=== PATIENT | male | born 1940 | race Caucasian/White ===

== ENCOUNTER 2024-03-21 18:26 | Emergency (ER) | payer OTHER, SELFPAY ==
[2024-03-21 18:28] VITALS: BP 169/80
--- NOTE | 2024-03-21 18:51 | ED.MUSCINJ ---
HPI-Injury
General
Chief Complaint: Fall
Source: patient
Exam Limitations: none
Time Seen by Provider: 03/21/24 18:33
History of Present Illness-Injury
Is this injury a work related problem?: No
Is pt an associate of [facility]/[place]?: No
Initial Injury comments:
This is a 83 year old male that comes in with c/o fall. States that he has problems with balance and he is not to walk in the grass. states that he walked in the grass and lost his balance and fell right on the right knee. States that he has had
pain in that knee before this. Denies hitting his head or any LOC. Denies any fever, chills, chest pain, SOB, abd pain, nausea, vomiting, diarrhea, headache, dizziness, urinary burning.
Past History
Past History
ED Past Medical History: CAD, Cancer (Prostate CA), HTN, Hypercholesterolemia, IDDM and Other (Back pain)
ED Past Surgical History: Appendectomy, Cardiac (Stents X 2), Orthopedic (Laminectomy, Right Menisectomy, Spinal fusion, revision or spinal incision X 2) and Urological (TURP)
Social History
Tobacco: Non-smoker
Alcohol: Occasional
Drug: None
Personal:
Living: with family
Employment: Retired
Family History
Family History: Other (Noncontributory)
Review of Systems
Review of Systems
All Other Systems: ROS reviewed and negative except as documented in HPI and ROS
Constitutional: Reports no symptoms; Denies fever or chills
EENT: Reports no symptoms
Respiratory: Reports no symptoms; Denies cough or trouble breathing
Cardiac: Reports no symptoms; Denies chest pain
ABD/GI: Reports no symptoms; Denies abdominal pain, nausea, vomiting or diarrhea
: Reports no symptoms; Denies dysuria, frequency or urgency
Musculoskeletal: Reports joint pain (Right knee pain)
Skin: Reports no symptoms
Neurological: Reports no symptoms; Denies dizzy or headache
Psychiatric: Reports no symptoms
Musculoskeletal Injury Exam
Musculoskeletal Injury Exam
Right Medial:
Pain with Movement?: Mild
Tender to palpation?: None
Soft tissue swelling?: None
External deformity and angulation?: None
Joint effusion?: None
Contusion?: None
Hematoma-local bleeding into tissue?: None
Strain- Sprain- Tear (Connective tissue injury)?: None
Crepitus with movement?: No
Joint instability?: No
Malalignment/deformity?: No
Range of motion: Full
Distal skin color and temperature: normal-warm & good color
Capillary Refill: normal
Normal distal neurovascular exam?: Yes
Phy Exam
General Physical Exam
General Presentation: well appearing and no apparent distress
General age: appears stated age
General Skin: warm and dry
General Habitus: elderly
General Mental: alert
General Hydration: appears well hydrated
ENT Exam
ENT Exam: TM's normal, pharynx normal and neck supple
Eye Exam
Eye Exam: EOMI
Musculoskeletal Exam
Musculoskeletal Exam: other (negative for any cervical neck tenderness or shoulder tenderness. Patient can cross over, abduct, flex elbows move wrist and fingers without discomfort right knee tenderness with flexion and extension)
Skin Exam
Skin Exam: normal color, warm/dry, no rash, no petechia and other (Small abrasion to the left knee)
Psychiatric Exam
Psychiatric Exam: normal mood/affect
Injury Course
Orders/Labs/Results
Orders:
Orders
03/21/24 18:30
Knee, Right 4 or More Views [CR Knee- Right 4 Or More View*] Urgent
Comment:
Reason For Exam: fell on on right knee today
03/21/24 19:03
Hector Wrap Right-Treatment ONCE
MDM/Problems Addressed
Differential Diagnosis Includes:
Chronic knee pain, contusion.
MDM/Problems Addressed:
This is a 83 year old male that comes in with c/o right knee pain after falling in the grass
will gt X-ray.
Chronic conditions affecting care:
Chronic knee pain
Acute Exacerbation and/or Progression of Chronic Illness:
NA
*Radiology
Radiology exam reviewed: radiology read reviewed (right knee-degenerative changes. No findings to suggest recent cortical fracture. )
*Pulse Oximetry
Patient hypoxic: no
*EKG
Interpreted by ED Provider?: NA
Rate: EKG- N/A
*[employer] Inspector Interpretation
Rate: [employer] Inspector- N/A
*Critical Care Note
Total Time (30-74mins, 75-104mins- exclusive of procedures): Not Applicable
ED Attending Note
-
Portions of this chart may have been created with voice recognition software.� Occasional wrong word or��sound alike� substitutions may have occurred due to the inherent limitations of voice recognition software.
Discharge Plan
Departure
Patient Disposition: Home (Routine Discharge)
Date of Disposition: 03/21/24
Time of Disposition: 19:13
Patient with high blood pressure during this ER visit?: Yes
Condition: Good
Covid-19: Not Applicable
Discharge Problem:
Knee pain, right
Instructions: Preventing falls in adults, Knee Pain ED, BLOOD PRESSURE
Prescriptions:
No Action
metformin 500 MG tablet
500 mg PO TID
allopurinol 100 MG tablet
100 mg PO MOWEFR
glimepiride 2 MG tablet
2 mg PO DAILY
rosuvastatin 10 MG tablet
10 mg PO QPM
metoprolol tartrate 25 MG tablet
25 mg PO DAILY
vitamin B complex-folic acid [Super B Maxi Complex] 0.4 MG tablet
0.4 mg PO DAILY
fish oil-dha-epa 1 EACH capsule
2 tab PO BID
cholecalciferol (vitamin D3) 1,000 UNITS tablet
1,000 units PO DAILY
insulin glargine [Lantus Solostar U-100 Insulin] 300 UNITS/3 ML insulin pen
15 units SC HS
sennosides [senna] 1 TABLET tablet
2 tab PO BID 0RF
acetaminophen [Tylenol Extra Strength] 500 MG tablet
1,000 mg PO Q6H 0RF
Rx Instructions:
Do not exceed >4000 mg daily.
docusate sodium 100 MG capsule
100 mg PO BID 0RF
tramadol 50 MG tablet
50 mg PO Q6HPRN PRN (Reason: moderate-severe pain) Qty: 30 0RF
Rx Instructions:
1 tab for moderate-severe pain
dx lami
ongoing therapy
gabapentin 100 MG capsule
200 mg PO TID Qty: 30 0RF
cephalexin 500 MG capsule
500 mg PO TID 5 Days Qty: 15 0RF
losartan 50 MG tablet
50 mg PO DAILY Qty: 0 0RF
Rx Instructions:
Hold if systolic blood pressure <130 while on Tramadol
clopidogrel 75 MG tablet
75 mg PO DAILY Qty: 0 0RF
Rx Instructions:
Resume 09/09/20, per surgeon
aspirin 81 MG tablet,delayed release (DR/EC)
81 mg PO DAILY Qty: 0 0RF
Rx Instructions:
Resume 09/09/20, per surgeon
nifedipine 60 MG tablet extended release 24hr
60 mg PO DAILY Qty: 0 0RF
Rx Instructions:
Hold if systolic blood pressure <130 while on Tramadol
tamsulosin 0.4 MG capsule
0.4 mg PO DAILY Qty: 10 0RF
hydrocodone-acetaminophen 1 TABLET tablet
1 tab PO Q4HPRN PRN (Reason: pain) Qty: 10 0RF
loperamide [Imodium A-D] 2 MG capsule
2 mg PO TID PRN (Reason: loose stools) Qty: 14 0RF
triamcinolone acetonide 1 APPLIC ointment
1 applic topical TID Qty: 1 0RF
tamsulosin 0.4 MG capsule
0.4 mg PO DAILY Qty: 14 0RF
oxycodone 5 MG tablet
5 mg PO Q8HPRN PRN (Reason: pain) Qty: 10 0RF
cephalexin 250 mg capsule
250 mg PO BID Qty: 13 0RF
Activity Restrictions/Additional Instructions:
As discussed, our X-ray is negative for any fractures or dislocation. There is degenerative changes in the right knee. Please use your Tylenol 1000mg every 6 hours as needed for pain. Ice for the next 24 hours on for 20 min at a time. Follow up with
the family doctor as needed. You may use the hector to help give your knee some support. IF YOU HAVE ANY OTHER CONCERNS PLEASE RETURN TO THE EMERGENCY ROOM
Interventions
Interventions:
*ED COVID-19 Vaccine History Last Done: 03/21/24 18:28
Discharge Date and Time
Print Language: TUVALUAN
== END 2024-03-21 19:30 | disposition home or self-care (01) ==
LOC: EMR 18:26
PROVIDERS: EMERGENCY PHYSICIAN Emergency Medicine; FAMILY PHYSICIAN Internal Medicine
DX: M25.561 Pain in right knee (principal); W18.30XA Fall on same level, unspecified, initial encounter; E11.9 Type 2 diabetes mellitus without complications; I25.10 Atherosclerotic heart disease of native coronary artery without angina pectoris; I10 Essential (primary) hypertension; E78.00 Pure hypercholesterolemia, unspecified; G89.29 Other chronic pain; Z85.46 Personal history of malignant neoplasm of prostate; Z95.5 Presence of coronary angioplasty implant and graft; Z98.1 Arthrodesis status; Z79.4 Long term (current) use of insulin; Z79.82 Long term (current) use of aspirin
CPT/HCPCS: 99283; 73564

== ENCOUNTER 2024-04-11 19:10 | Emergency (ER) | payer OTHER, SELFPAY ==
[2024-04-11 19:12] VITALS: BP 183/74; BMI 25.1
--- NOTE | 2024-04-11 21:24 | ED.MUSCINJ ---
HPI-Injury
General
Chief Complaint: Fall
Source: patient, spouse and family ( and son are present at the bedside)
Exam Limitations: none
Time Seen by Provider: 04/11/24 20:11
Nursing documentation reviewed up to this point in time: agreed with
History of Present Illness-Injury
Initial Injury comments:
This is a pleasant 83-year-old male that presents after falling 3 times today. Patient states that they are mechanical falls and denies head strike. Family sent him to the hospital to rule out 'possible stroke '. They state that he has been
falling more frequently lately. Patient fell 3 times today but he attributes this to walking on the grass. He states that he kept tripping. Patient denies headache, nausea, vomiting, or chest pain. Patient does have 'bad knees 'and he states
that they just gave out today. Family is concerned from the frequent falls but do not wish that he be admitted to the hospital for further evaluation. Through much discussion, we agreed on CT scan.
Past History
Past History
ED Past Medical History: CAD, Cancer (Prostate CA), HTN, Hypercholesterolemia, IDDM and Other (Back pain)
ED Past Surgical History: Appendectomy, Cardiac (Stents X 2), Orthopedic (Laminectomy, Right Menisectomy, Spinal fusion, revision or spinal incision X 2) and Urological (TURP)
Social History
Tobacco: Non-smoker
Alcohol: Occasional
Drug: None
Personal:
Living: with family
Employment: Retired
Family History
Family History: Other (Noncontributory)
Phy Exam
General Physical Exam
General Presentation: well appearing and mild distress
General age: appears stated age
General Skin: warm and dry
General Habitus: normal
General Mental: alert
General Hydration: appears well hydrated
ENT Exam
ENT Exam: EOMI, pharynx normal, neck supple and normocephalic
Eye Exam
Eye Exam: PERRL, cornea clear and conjunctiva normal
Cardiovascular Exam
Cardiovascular Exam: regular rate/rhythm, no edema, no murmur and normal peripheral pulses
Pulmonary Exam
Pulmonary Exam: lungs clear, no respiratory distress, no rales, no crackles, no rhonchi, no stridor, no wheezing and no cough
Gastrointestinal Exam
Gastrointestinal Exam: normal bowel sounds, non tender, soft, no organomegaly, no pulsatile mass and non distended
Neurological Exam
Neurological Exam: alert, oriented x3, no motor deficits and speech normal
Musculoskeletal Exam
Musculoskeletal Exam: edema
Skin Exam
Skin Exam: redness
Psychiatric Exam
Psychiatric Exam: normal mood/affect
Injury Course
Orders/Labs/Results
Orders:
Orders
04/11/24 20:44
CT Head W/o Iv Contrast Urgent
Comment:
Reason For Exam: fall x3 today
04/11/24 20:45
Knee, Right 4 or More Views [CR Knee- Right 4 Or More View*] Urgent
Comment:
Reason For Exam: fall with infusion
04/11/24 20:54
Case Management Consult ONCE
Case Management Consult: VN/Home Care
Comment: pt with frequent falls. may need home health or placement,.
04/11/24 21:41
Complete Blood Count/With Diff Urgent
Comprehensive Metabolic Panel Urgent
Abnormal Lab Results
04/11/24
21:41
RBC 3.90 L 10^6/uL
(4.70-6.10)
Hct 35.1 L %
(39.0-52.0)
MCH 33.6 H pg
(27.0-31.0)
MCHC 37.3 H g/dL
(33.0-37.0)
Lymphocytes % 19.1 L %
(20.5-51.1)
Potassium 3.2 L mmol/L
(3.5-5.1)
Chloride 108 H mmol/L
(98-107)
BUN 25 H mg/dl
(9-20)
Glucose 202 H mg/dl
(70-99)
Total Bilirubin 2.4 H mg/dl
(0.2-1.3)
Total Protein 6.0 L g/dl
(6.3-8.2)
04/11/24 21:41
04/11/24 21:41
*Radiology
Radiology exam reviewed: radiology read reviewed
*Critical Care Note
Total Time (30-74mins, 75-104mins- exclusive of procedures): Not Applicable
Update Note
Update Note:
The x-ray is negative.
ED Attending Note
-
Portions of this chart may have been created with voice recognition software.� Occasional wrong word or��sound alike� substitutions may have occurred due to the inherent limitations of voice recognition software.
Discharge Plan
Departure
Patient Disposition: Home (Routine Discharge)
Date of Disposition: 04/11/24
Time of Disposition: 23:13
Patient with high blood pressure during this ER visit?: Yes
Condition: Good
Discharge Problem:
Fall, Acute knee pain
Prescriptions:
No Action
metformin 500 MG tablet
500 mg PO TID
allopurinol 100 MG tablet
100 mg PO MOWEFR
glimepiride 2 MG tablet
2 mg PO DAILY
rosuvastatin 10 MG tablet
10 mg PO QPM
metoprolol tartrate 25 MG tablet
25 mg PO DAILY
vitamin B complex-folic acid [Super B Maxi Complex] 0.4 MG tablet
0.4 mg PO DAILY
fish oil-dha-epa 1 EACH capsule
2 tab PO BID
cholecalciferol (vitamin D3) 1,000 UNITS tablet
1,000 units PO DAILY
insulin glargine [Lantus Solostar U-100 Insulin] 300 UNITS/3 ML insulin pen
15 units SC HS
sennosides [senna] 1 TABLET tablet
2 tab PO BID 0RF
acetaminophen [Tylenol Extra Strength] 500 MG tablet
1,000 mg PO Q6H 0RF
Rx Instructions:
Do not exceed >4000 mg daily.
docusate sodium 100 MG capsule
100 mg PO BID 0RF
tramadol 50 MG tablet
50 mg PO Q6HPRN PRN (Reason: moderate-severe pain) Qty: 30 0RF
Rx Instructions:
1 tab for moderate-severe pain
dx lami
ongoing therapy
gabapentin 100 MG capsule
200 mg PO TID Qty: 30 0RF
cephalexin 500 MG capsule
500 mg PO TID 5 Days Qty: 15 0RF
losartan 50 MG tablet
50 mg PO DAILY Qty: 0 0RF
Rx Instructions:
Hold if systolic blood pressure <130 while on Tramadol
clopidogrel 75 MG tablet
75 mg PO DAILY Qty: 0 0RF
Rx Instructions:
Resume 09/09/20, per surgeon
aspirin 81 MG tablet,delayed release (DR/EC)
81 mg PO DAILY Qty: 0 0RF
Rx Instructions:
Resume 09/09/20, per surgeon
nifedipine 60 MG tablet extended release 24hr
60 mg PO DAILY Qty: 0 0RF
Rx Instructions:
Hold if systolic blood pressure <130 while on Tramadol
tamsulosin 0.4 MG capsule
0.4 mg PO DAILY Qty: 10 0RF
hydrocodone-acetaminophen 1 TABLET tablet
1 tab PO Q4HPRN PRN (Reason: pain) Qty: 10 0RF
loperamide [Imodium A-D] 2 MG capsule
2 mg PO TID PRN (Reason: loose stools) Qty: 14 0RF
triamcinolone acetonide 1 APPLIC ointment
1 applic topical TID Qty: 1 0RF
tamsulosin 0.4 MG capsule
0.4 mg PO DAILY Qty: 14 0RF
oxycodone 5 MG tablet
5 mg PO Q8HPRN PRN (Reason: pain) Qty: 10 0RF
cephalexin 250 mg capsule
250 mg PO BID Qty: 13 0RF
Referrals:
Alma Khan DO [Family Provider] -
Activity Restrictions/Additional Instructions:
It was a pleasure meeting you and taking part in your care. We hope for your continued healing and wellness.
Please read discharge instructions in their entirety. However, they are for general education and may not describe your exact diagnosis at discharge. Information on your ER visit and medical conditions were discussed with you along with appropriate
follow up information...
If indicated, please take your medications as instructed and indicated on discharge paperwork.
Please schedule a follow up appointment as directed. Call to schedule an appointment
Please return to the emergency department with ANY change in, persisting, or worsening of symptoms. If any of your symptoms do not improve, or persist, or become more severe within 6-12 hours, please return to the emergency department for further
care.
Please return to the emergency department if you develop a headache, neck pain/stiffness, fever greater than 100.4F, chest pain, shortness of breath, persistent nausea, vomiting, slurred speech, difficulty walking, numbness/tingling, weakness, signs
of infection or any other symptoms that are worrisome to you.
If you have any questions or concerns please do not hesitate to call the Hospital at or E-mail me directly at [email or web address]
Interventions
Interventions:
*Risk Screen - Suicide Last Done: 04/11/24 19:12
*General Assessment Last Done: 04/11/24 21:33
*Neglect/Abuse Screening Last Done: 04/11/24 19:12
ED- Fall Risk Assessment Last Done: 04/11/24 23:36
*Nursing Disposition Last Done: 04/11/24 23:36
ED-Musculoskeletal Assessment Last Done: 04/11/24 21:33
ED- Neurological Assessment Last Done: 04/11/24 21:33
ED-Skin Assessment Last Done: 04/11/24 21:33
Discharge Date and Time
Discharge Date/Time: 04/11/24 23:37
Print Language: AMHARIC
[2024-04-11 21:43] VITALS: BP 191/58
[2024-04-11 21:49] LABS: % Basophils 0.4 % (0-2); % Eosinophils 1.8 % (0-6); % Immature Granulocytes 0.3 % (0-0.5); % Lymphocytes 19.1 % (20.5-51.1); % Monocytes 5.7 % (1.7-9.3); % Neutrophils 72.7 % (42.2-75.2); Absolute Eosinophils 0.1 10^3/uL (0-0.7); Absolute Lymphocytes 1.5 10^3/uL (1.2-3.4); Absolute Monocytes 0.4 10^3/uL (0.1-0.6); Absolute Neutrophils 5.6 10^3/uL (1.4-6.5); Hematocrit 35.1 % (39.0-52.0); Hemoglobin 13.1 g/dL (13.0-18.0); Mean Corp Hgb Conc. 37.3 g/dL (33.0-37.0); Mean Corpuscular Hgb 33.6 pg (27.0-31.0); Mean Platelet Volume 10.1 fL (7.4-10.4); Nucleated Red Blood Cells % 0 % (-); Platelet Count 153 10^3/uL (130-400); Red Cell Dist. Width 12.6 % (11.5-14.5); White Blood Cell Count 7.7 10^3/uL (4.8-10.8)
[2024-04-11 22:06] LABS: ALT (SGPT) 19 U/L (0-50); AST (SGOT) 27 U/L (17-59); Albumin 3.8 g/dl (3.5-5.0); Alkaline Phosphatase 77 U/L (38-126); Blood Urea Nitrogen 25 mg/dl (9-20); Calcium 9.5 mg/dl (8.4-10.2); Carbon Dioxide 23 mmol/L (22-30); Chloride 108 mmol/L (98-107); Estimated Creatinine Clearance 44 ml/min; Glucose 202 mg/dl (70-99); Potassium 3.2 mmol/L (3.5-5.1); Sodium 139 mmol/L (135-145); Total Bilirubin 2.4 mg/dl (0.2-1.3); eGFR > 60.00
[2024-04-11 23:36] VITALS: BP 177/82
--- NOTE | 2024-04-14 10:05 | EDCM ---
CM consult placed for placement vs. PT/OT. Patient was discharged to home. Spoke with patient's and offered PT/OT at home. She declined. She stated her will be going to his PCP tomorrow and they will discuss his multiple falls then.
== END 2024-04-11 23:37 | disposition home or self-care (01) ==
LOC: EMR 19:10
PROVIDERS: EMERGENCY PHYSICIAN Student in an Organized Health Care Education/Training Program; FAMILY PHYSICIAN Internal Medicine
DX: M25.561 Pain in right knee (principal); W19.XXXA Unspecified fall, initial encounter; R29.6 Repeated falls; I10 Essential (primary) hypertension
CPT/HCPCS: 99285; 70450; 73564; 80053; 85025

== ENCOUNTER 2024-09-25 06:48 | Inpatient (IN) | payer OTHER, SELFPAY ==
[2024-09-24] VITALS (7 sets, daily range): BP systolic 146–192; BP diastolic 57–73
[2024-09-24 22:01] LABS: Glucose - Point of Care 280 mg/dl (70-99)
[2024-09-24 22:03] LABS: % Basophils 0.1 % (0-2); % Eosinophils 0.7 % (0-6); % Immature Granulocytes 0.4 % (0-0.5); % Lymphocytes 20.3 % (20.5-51.1); % Monocytes 6.4 % (1.7-9.3); % Neutrophils 72.1 % (42.2-75.2); Absolute Eosinophils 0.1 10^3/uL (0-0.7); Absolute Lymphocytes 1.5 10^3/uL (1.2-3.4); Absolute Monocytes 0.5 10^3/uL (0.1-0.6); Absolute Neutrophils 5.3 10^3/uL (1.4-6.5); Hematocrit 38.4 % (39.0-52.0); Hemoglobin 13.4 g/dL (13.0-18.0); Mean Corp Hgb Conc. 34.9 g/dL (33.0-37.0); Mean Corpuscular Hgb 32.2 pg (27.0-31.0); Mean Corpuscular Volume 92.3 fL (80.0-94.0); Mean Platelet Volume 10.8 fL (7.4-10.4); Nucleated Red Blood Cells % 0 % (-); Platelet Count 167 10^3/uL (130-400); Red Blood Cell Count 4.16 10^6/uL (4.70-6.10); Red Cell Dist. Width 12.8 % (11.5-14.5); White Blood Cell Count 7.4 10^3/uL (4.8-10.8)
[2024-09-24 22:19] LABS: ALT (SGPT) 20 U/L (0-50); AST (SGOT) 37 U/L (17-59); Albumin 3.8 g/dl (3.5-5.0); Alkaline Phosphatase 62 U/L (38-126); Blood Urea Nitrogen 25 mg/dl (9-20); Calcium 9.1 mg/dl (8.4-10.2); Carbon Dioxide 25 mmol/L (22-30); Chloride 102 mmol/L (98-107); Glucose 302 mg/dl (70-99); Potassium 3.9 mmol/L (3.5-5.1); Sodium 134 mmol/L (135-145); Total Bilirubin 1.6 mg/dl (0.2-1.3); Total Protein 6.1 g/dl (6.3-8.2); eGFR 54.51
[2024-09-24 22:33] LABS: Troponin I 0.795 ng/ml
[2024-09-24 22:51] LABS: TSH 3.42 uIU/ml (0.47-4.68)
[2024-09-25] VITALS (26 sets, daily range): BP systolic 140–189; BP diastolic 52–93; PULSE 54–73; O2SAT 100; BMI 28.1
--- NOTE | 2024-09-25 03:08 | ED.GENMED ---
History of Present Illness
General
Chief Complaint: Weakness
Time Seen by Provider: 09/25/24 02:05
History of Present Illness
History of Present Illness:
83-year-old male with history of hypertension and CAD with reportedly 6 stents presenting to the emergency department for frequent falls. Patient lives at home with his . He notes that he had 3 falls today, unprovoked. Denies any prodromal
dizziness. He is unsure whether or not he tripped on anything. called for further information, notes that he is very slow to ambulate, has difficulty with his walker and his legs often give out. He did have 3 falls today, does not believe
that he struck his head. Patient has had worsening issues with his memory. Today he could not get up, had to have his son come over to help him get up. Denies any chest pain or breathing. Denies fever or recent illness. Denies abdominal pain or
GI symptoms. Per family, they are and getting him into placement.
Past History
Past History
ED Past Medical History: CAD, Cancer (Prostate CA), HTN, Hypercholesterolemia, IDDM and Other (Back pain)
ED Past Surgical History: Appendectomy, Cardiac (Stents X 2), Orthopedic (Laminectomy, Right Menisectomy, Spinal fusion, revision or spinal incision X 2) and Urological (TURP)
Social History
Tobacco: Non-smoker
Alcohol: Occasional
Drug: None
Personal:
Living: with family
Employment: Retired
Family History
Family History: Other (Noncontributory)
Phy Exam
Physical Exam
Physical Exam:
General: Well-appearing, no clinical signs of dehydration, nontoxic and in no acute distress
HEENT: protecting airway
Neck: appears supple, no midline tenderness
CV: Normal heart rate, regular rhythm,
Resp: No accessory muscle use, no increased work of breathing, lungs clear to auscultation bilaterally
Abd: Soft and non-distended, no tenderness to palpation
Extremities: No deformities, no swelling, no erythema, pulses and sensation intact
Neuro: alert, no focal neurologic deficit
: deferred
Rectal: deferred
Psych: Normal affect
Skin: Intact
Course
Orders/Labs/Results
Orders:
Orders
09/24/24 21:51
EKG [Electrocardiogram (*1)] Urgent
Reason for Study: Other
Other Reason for Exam: weakness
09/24/24 21:52
EKG- Treatment ONCE
09/24/24 21:56
Complete Blood Count/With Diff Urgent
Comprehensive Metabolic Panel Urgent
TSH Urgent
Troponin I Urgent
09/25/24 02:53
CT Head W/o Iv Contrast Urgent
Comment:
Reason For Exam: frequent falls
Urinalysis Reflex To Culture Urgent
Abnormal Lab Results
09/24/24 09/24/24
21:56 21:59
RBC 4.16 L 10^6/uL
(4.70-6.10)
Hct 38.4 L %
(39.0-52.0)
MCH 32.2 H pg
(27.0-31.0)
MPV 10.8 H fL
(7.4-10.4)
Lymphocytes % 20.3 L %
(20.5-51.1)
Sodium 134 L mmol/L
(135-145)
BUN 25 H mg/dl
(9-20)
Glucose 302 H mg/dl
(70-99)
Total Bilirubin 1.6 H mg/dl
(0.2-1.3)
Troponin I 0.795 H* ng/ml
Total Protein 6.1 L g/dl
(6.3-8.2)
POC Glucose 280 H mg/dl
(70-99)
09/24/24 21:56
09/24/24 21:56
Vital Signs
Initial and Last Documented VS:
Initial Vital Signs
Temp Pulse Resp BP Pulse Ox
97.9 F 66 14 155/63 97
09/24/24 21:33 09/24/24 21:33 09/24/24 21:33 09/24/24 21:33 09/24/24 21:33
Last Documented Vital Signs
Temp Pulse Resp BP Pulse Ox
97.9 F 61 14 170/65 99
09/24/24 21:33 09/25/24 01:00 09/25/24 01:00 09/25/24 01:00 09/25/24 01:00
MDM/Problems Addressed
MDM/Problems Addressed:
83-year-old male with history of dementia, CAD status post stenting presenting for recurrent falls. Vital signs on arrival are normal.
On exam, patient is resting comfortably, no acute distress. Patient without any acute medical complaints. Unremarkable cardiac, pulmonary, neurologic exam. Unclear etiology of patient's increased frequency of falls, however appears to be unsafe
disposition home, lives at home with his and is unable to get him up when he does fall. Patient is having increased difficulty caring for himself at home, likely decompensated dementia. Patient had screening laboratory analysis and EKG
prior to my assessment. EKG is abnormal with right bundle branch block, appears changed from prior. Additionally patient with troponin elevation, no prior for comparison. Patient currently without chest pain. However extensive cardiac history
including 6 stents. For this reason feel patient warrants continued cardiac monitoring and troponin trending, cardiac consultation to ensure no cardiac pathology as etiology of falls. Patient is poor historian regarding the falls, denies prodromal
symptoms, unclear if syncope or near syncopal episodes associated. No signs of trauma, however again unclear etiology of falls or mechanism surrounding the fall. Will screen with CT brain imaging. Plan for admission.
*EKG
Interpreted by ED Provider?: Yes
EKG Intrepretation Date: 09/25/24
EKG Intrepretation Time: 03:11
Interpretation: abnormal
Comparison EKG: changes noted (08/30/20)
Heart Rate: 84
Rate: normal
Rhythm: sinus
[place]: normal axis
Interval: normal interval
QRS Pattern: right bundle branch block
Ischemia: other (abnormal EKG)
*Critical Care Note
Total Time (30-74mins, 75-104mins- exclusive of procedures): Not Applicable
ED Attending Note
-
Portions of this chart may have been created with voice recognition software.� Occasional wrong word or��sound alike� substitutions may have occurred due to the inherent limitations of voice recognition software.
Discharge Plan
Departure
Prescriptions:
No Action
metformin 500 MG tablet
500 mg PO TID
allopurinol 100 MG tablet
100 mg PO MOWEFR
glimepiride 2 MG tablet
2 mg PO DAILY
rosuvastatin 10 MG tablet
10 mg PO QPM
metoprolol tartrate 25 MG tablet
25 mg PO DAILY
vitamin B complex-folic acid [Super B Maxi Complex] 0.4 MG tablet
0.4 mg PO DAILY
fish oil-dha-epa 1 EACH capsule
2 tab PO BID
cholecalciferol (vitamin D3) 1,000 UNITS tablet
1,000 units PO DAILY
insulin glargine [Lantus Solostar U-100 Insulin] 300 UNITS/3 ML insulin pen
15 units SC HS
sennosides [senna] 1 TABLET tablet
2 tab PO BID 0RF
acetaminophen [Tylenol Extra Strength] 500 MG tablet
1,000 mg PO Q6H 0RF
Rx Instructions:
Do not exceed >4000 mg daily.
docusate sodium 100 MG capsule
100 mg PO BID 0RF
tramadol 50 MG tablet
50 mg PO Q6HPRN PRN (Reason: moderate-severe pain) Qty: 30 0RF
Rx Instructions:
1 tab for moderate-severe pain
dx lami
ongoing therapy
gabapentin 100 MG capsule
200 mg PO TID Qty: 30 0RF
cephalexin 500 MG capsule
500 mg PO TID 5 Days Qty: 15 0RF
losartan 50 MG tablet
50 mg PO DAILY Qty: 0 0RF
Rx Instructions:
Hold if systolic blood pressure <130 while on Tramadol
clopidogrel 75 MG tablet
75 mg PO DAILY Qty: 0 0RF
Rx Instructions:
Resume 09/09/20, per surgeon
aspirin 81 MG tablet,delayed release (DR/EC)
81 mg PO DAILY Qty: 0 0RF
Rx Instructions:
Resume 09/09/20, per surgeon
nifedipine 60 MG tablet extended release 24hr
60 mg PO DAILY Qty: 0 0RF
Rx Instructions:
Hold if systolic blood pressure <130 while on Tramadol
tamsulosin 0.4 MG capsule
0.4 mg PO DAILY Qty: 10 0RF
hydrocodone-acetaminophen 1 TABLET tablet
1 tab PO Q4HPRN PRN (Reason: pain) Qty: 10 0RF
loperamide [Imodium A-D] 2 MG capsule
2 mg PO TID PRN (Reason: loose stools) Qty: 14 0RF
triamcinolone acetonide 1 APPLIC ointment
1 applic topical TID Qty: 1 0RF
tamsulosin 0.4 MG capsule
0.4 mg PO DAILY Qty: 14 0RF
oxycodone 5 MG tablet
5 mg PO Q8HPRN PRN (Reason: pain) Qty: 10 0RF
cephalexin 250 mg capsule
250 mg PO BID Qty: 13 0RF
Referrals:
Alma Khan DO [Family Provider] -
Interventions
Interventions:
*Risk Screen - Suicide Last Done: 09/24/24 21:33
*General Assessment Last Done: 09/24/24 21:33
*Neglect/Abuse Screening Last Done: 09/24/24 21:33
ED- Fall Risk Assessment Last Done: 09/24/24 21:48
*ED COVID-19 Vaccine History Last Done: 09/24/24 21:48
ED- Cardiac Assessment Last Done: 09/24/24 21:48
ED- Neurological Assessment Last Done: 09/24/24 21:48
ED- Pulmonary Assessment Last Done: 09/24/24 21:48
Discharge Date and Time
Print Language: [id number]
[2024-09-25 05:42] LABS: Urine Albumin Trace (Neg - Trace); Urine Bilirubin Negative (Negative); Urine Character Clear (Clear); Urine Color Yellow; Urine Glucose 3+ (Negative); Urine Ketone Trace (Negative); Urine Leukocyte Negative (Negative); Urine Nitrite Negative (Negative); Urine Occult Blood Trace (Negative); Urine Urobilinogen Negative (Neg - 1+)
[2024-09-25 05:57] LABS: Urine Amorphous Seen; Urine Bacteria Moderate (Negative); Urine Red Blood Cell 0-2 /HPF (0-2); Urine Squamous Cell >30 /LPF (Few)
--- NOTE | 2024-09-25 06:46 | HPS.HSE ---
Family Physician
-
Family Physician: Alma Khan
Chief Complaint
-
Weakness / Falls
History of Present Illness
Patient is an 83y M with PMH significant for ASCVD, prostate cancer and mild dementia who presents to ED complaining of frequent falls. Patient states that he had 3 falls at home in the past 24 hours. He denies any significant injury due to the
falls. He denies any head injury or LOC. He denies any dizziness or lightheaded sensation. He has no chest pain, dyspnea, palpitations, etc. Patient states that he has been having increased issues with balance / falling for the past few months.
He presented to the ED this evening for further evaluation.
At the time of my examination, patient is resting comfortably in bed with no complaints.
Patient states that he was 'fed up' with the many medicatiosn he was taking (upwards of 30 separate meds at one point). He states that he stopped taking everything several months ago.
Patient notes that he has since spoken with his PCP and restarted 'the two most important meds' - though he does not know which meds those are.
Medical History
Past Medical History
Past Medical History: Reports Other
Additional Past Medical History:
Hypertension
ASCVD
Prostate Cancer
Mild Dementia
DM-II
Past Surgical History: Reports Other
Additional Past Surgical History:
Prostatectomy
Appendectomy
PTCA with Stents (multiple)
Social History
Tobacco: Non-smoker
Alcohol: Occasional
Drug: None
Family History
Family History: Not pertinent
Allergies / Home Medications
Allergies reflects when Allergies were last updated in [facility].
Home Medications with original date entered in [facility]
Allergy/Medication List:
Patient cannot recall which medications he is currently taking.
He does know that he takes a single injection of insulin once daily.
Review of Systems
-
History Source: Patient
A 12 point ROS was completed and negative except as noted: Yes
Constitutional: Reports Fatigue; Denies Fever or Chills
EENT: Denies Sore Throat
Respiratory: Denies Cough or Trouble Breathing
Cardiac: Denies Chest Pain or Palpitations
Abdomen/GI: Denies Abdominal Pain, Nausea, Vomiting or Diarrhea
: Denies Dysuria, Frequency or Flank Pain
Musculoskeletal: Denies Joint Pain or Edema
Neurological: Reports Weakness; Denies Dizzy or Headache
Psych: Denies Depression or Anxiety
Physical Exam
Vital Signs
Vital Signs
Temp Pulse Resp BP Pulse Ox
97.9 F 58 21 167/65 98
09/24/24 21:33 09/25/24 06:00 09/25/24 06:00 09/25/24 06:00 09/25/24 06:00
Physical Exam
General: Other (83y M in no acute distress.)
HEENT: Moist mucous membranes and PERRLA
Respiratory: Clear; No Wheezes, Rales or Rhonchi
Cardiac: S1/S2 and Regular Rhythm; No Murmur
GI: Soft, Non Tender, Non Distended and Normal Bowel Sounds
Musculoskeletal: No Clubbing, No Cyanosis and No Edema
Neuro: AO x 3 and Nonfocal/grossly intact
Laboratory Results
-
09/24/24 21:56
09/24/24 21:56
Laboratory Results
Total Bilirubin 1.6 mg/dl (0.2-1.3) H 09/24/24 21:56
AST 37 U/L (17-59) 09/24/24 21:56
ALT 20 U/L (0-50) 09/24/24 21:56
Alkaline Phosphatase 62 U/L (38-126) 09/24/24 21:56
Troponin I 1.050 ng/ml H* D 09/25/24 05:14
Impression/Plan
-
A/P: Patient is an 83y M with PMH significant for ASCVD, hypertension and dementia who presents to ED complaining of 3 falls in the past 24 hours.
Ambulatory Dysfunction
Frequent Falls
- Admit for further evaluation and treatment.
- PT / OT evaluations.
- CM evaluation - consideration for SNF / placement upon discharge.
- Follow for any new / focal complaints or concerns.
ASCVD
Abnormal Troponin
- Patient with no active symptoms of chest pain, dyspnea, palpitations, etc.
- Troponin 0.7 and then increased to 1.05 on second set.
- EKG with new bifascicular block when compared to prior tracing (from 2019).
- Will ask Cardiology to evaluate for any new recommendations.
- Continue to follow troponin to peak.
- Continue / restart CV med regimen including DAPT, statin, etc.
DM-II
- Uncontrolled. Continue basal insulin.
- Follow glucose and cover with SSI as needed.
- Update A1C.
- Adjust insulin / med regimen as needed for glycemic control.
Benign Hypertension
- Continue / resume metoprolol.
- Adjust med regimen for adequate BP control.
CKD III
- Stable. Renal function is at / near known baseline.
- Follow for any changes.
Mild Dementia
- Stable. Patient fairly good historian. Without evident dementia / memory impairment.
- Follow fo any acute changes / delirium during hospital stay.
DVT prophylaxis: SCDs
Code Status: DNR
[2024-09-25 10:38] LABS: Glucose - Point of Care 199 mg/dl (70-99)
[2024-09-25 11:25] LABS: Troponin I 0.871 ng/ml
[2024-09-25 11:46] LABS: TSH Reflex To Free T4 2.39 uIU/ml (0.47-4.68)
[2024-09-25] MEDS: LR 1000 IV (11:54)
--- NOTE | 2024-09-25 12:09 | CON.CAR ---
Consultation
Consultation Request
Date/Time Consultation Requested: September 25, 2024
Date/Time Consultation Performed: September 25, 2024
Requesting Provider: Hospitalist
Performing Provider: Cuong
Reason for Consultation: Elevated troponin
Medical History
-
Chief Complaint: Elevated troponin
History of Present Illness:
83-year-old male who is a poor historian and we are consulted for an elevated troponin which has peaked and is now coming down. The patient does not report any chest pain or pressure over the last month. We have no medical records available and he
is never been evaluated in our health system. Importantly he is on dual antiplatelet therapy. He has had 3 recent falls and the third fall brought him to the emergency department yesterday.
PMH significant for ASCVD, prostate cancer and mild dementia who presents to ED complaining of frequent falls. Patient states that he had 3 falls at home in the past [address] Nugent's notes: patient states that he was 'fed up' with the many medications he was taking (upwards of 30 separate meds at one point). He states that he stopped taking everything several months ago.
Patient notes that he has since spoken with his PCP and restarted 'the two most important meds' - though he does not know which meds those are.
Past Medical History
Past Medical History: CAD, Cancer and Psychiatric
Social History
Tobacco: Non-Smoker
Alcohol: None
Drug: None
Personal: Other
Living: Other
Employment: Not Employed
Family History
Family History: Reviewed & Not Pertinent
Allergies / Home Medications
Allergy/AdvReac Type Severity Reaction Status Date / Time
No Known Allergies Allergy Verified 04/11/24 19:12
�Medication �Instructions �Recorded �Confirmed �Type
allopurinol 100 mg tablet 100 mg PO MOWEFR Gout 09/05/20 09/06/20 History
cholecalciferol (vitamin D3) 25 1,000 units PO DAILY Supplement 09/05/20 09/06/20 History
mcg (1,000 unit) tablet
fish oil-dha-epa 1,200 mg-144 2 tab PO BID High cholesterol 09/05/20 09/06/20 History
mg-216 mg capsule
glimepiride 2 mg tablet 2 mg PO DAILY Diabetes 09/05/20 09/06/20 History
insulin glargine 100 unit/mL (3 15 units SC HS Diabetes 09/05/20 09/06/20 History
mL) subcutaneous pen (Lantus
Solostar U-100 Insulin)
metformin 500 mg tablet 500 mg PO TID Diabetes 09/05/20 09/06/20 History
metoprolol tartrate 25 mg tablet 25 mg PO DAILY Blood pressure 09/05/20 09/06/20 History
rosuvastatin 10 mg tablet 10 mg PO QPM High cholesterol 09/05/20 09/06/20 History
vitamin B complex-folic acid 0.4 0.4 mg PO DAILY Supplement 09/05/20 09/06/20 History
mg tablet (Super B Maxi Complex)
acetaminophen 500 mg tablet 1,000 mg (2 x 500 mg) PO Q6H 09/07/20 Rx
(Tylenol Extra Strength)
aspirin 81 mg tablet,delayed 81 mg PO DAILY ##0 09/07/20 09/06/20 Rx
release
cephalexin 500 mg capsule 500 mg PO TID 5 days #15 caps 09/07/20 Rx
clopidogrel 75 mg tablet 75 mg PO DAILY ##0 09/07/20 09/06/20 Rx
docusate sodium 100 mg capsule 100 mg PO BID 09/07/20 Rx
gabapentin 100 mg capsule 200 mg (2 x 100 mg) PO TID #30 caps 09/07/20 Rx
losartan 50 mg tablet 50 mg PO DAILY ##0 09/07/20 09/06/20 Rx
nifedipine 60 mg tablet,extended 60 mg PO DAILY ##0 09/07/20 09/06/20 Rx
release 24 hr
sennosides 8.6 mg tablet (senna) 2 tab PO BID 09/07/20 Rx
tramadol 50 mg tablet 50 mg PO Q6HPRN PRN 09/07/20 Rx
moderate-severe pain #30 tabs
hydrocodone 5 mg-acetaminophen 325 1 tab PO Q4HPRN PRN pain #10 tabs 01/29/21 Rx
mg tablet
tamsulosin 0.4 mg capsule 0.4 mg PO DAILY ##10 01/29/21 Rx
loperamide 2 mg capsule (Imodium 2 mg PO TID PRN loose stools #14 04/27/21 Rx
A-D) caps
triamcinolone acetonide 0.1 % 1 applic topical TID #1 tube 11/04/21 Rx
topical ointment
oxycodone 5 mg tablet 5 mg PO Q8HPRN PRN pain #10 tabs 12/02/21 Rx
tamsulosin 0.4 mg capsule 0.4 mg PO DAILY #14 caps 12/02/21 Rx
cephalexin 250 mg capsule 250 mg PO BID #13 caps 08/31/22 Rx
Review of Systems
-
Unable to obtain full review of systems at this time due to: Dementia and Other (Patient poor historian)
All other systems: Negative unless noted
Constitutional: No Symptoms
Cardiac: No Symptoms
Physical Exam
Vital Signs
Temp Pulse Resp BP Pulse Ox
97.3 F 59 18 157/62 100
09/25/24 09:45 09/25/24 10:41 09/25/24 10:41 09/25/24 10:41 09/25/24 10:41
Lab Results
09/24/24 21:56
09/24/24 21:56
Troponin I 0.871 ng/ml H* 09/25/24 10:47
Physical Exam
General: Well Developed, Well Nourished and No Apparent Distress
HEENT: Normocephalic and Anicteric
Respiratory: Clear
Cardiac: S1/S2 and Regular Rhythm
Breast: Deferred by me
GI: Soft, Non Tender and Non Distended
Rectal: Deferred by Provider
Genito-urinary: Clear Urine
Musculoskeletal: No Clubbing, No Cyanosis and No Edema
Skin: Warm and Dry
Neuro: Awake, Alert and Oriented
Hematologic/Lymphatic: No Lymphadenopathy
Psych: Calm
Impression / Plan
-
Impression:
Dementia
Admission for frequent falls
Right bundle branch block
First-degree AV delay
Elevated troponin as noted
Noncompliant with medications
History of taking DAPT therapy
Urinalysis noted
Prostate cancer
Recommend:
It is absolutely necessary to obtain prior records of his prior cardiovascular care as he is a poor historian and we have no records
I have no objection to resuming DAPT therapy
Echocardiogram Friday
As he is pain-free and has been noncompliant with DAPT therapy we will resume DAPT and I do not think we need to start heparin at this time
He appears to have more than just mild dementia as he is unable to provide a cogent history defer to primary team
Will follow with you
Reasonable to main telemetry as he has a new right bundle branch block and precedent first-degree AV delay
Data Reviewed
-
EKG: Tracing Personally Visualized and interpreted
Radiology: Report Reviewed by me
Labs: Labs Reviewed by me
Old Records: Requested
--- NOTE | 2024-09-25 14:30 | W.PN.HOSP.TC ---
Today's Communication/Plan
-
Start diet
PT/OT eval
Echocardiogram Friday
Resume home CAD meds
Assessment / Plan
Assessment / Plan
#Elevated troponin
#H/O CAD s/p PCI
-Unclear if this is demand secondary to his fall in the context of medication noncompliance versus new NSTEMI
-Has been resumed on home medications; troponin trend 0.7�1.05�0.87
-ECG with bifascicular block but no obvious acute ST or T wave change
-Patient is not complaining of chest pain here, no chest pain per history
-Suspect that this is not NSTEMI; troponin trend not consistent with ACS
-Continue home CAD regimen including DAPT, statin, beta-suma
-Echocardiogram planned for Friday
#Mechanical falls
#Ambulatory dysfunction
-Patient states he recalls his falls no does not know why he fell
-PT/OT consulted for likely placement to SNF
#IDDM with hyperglycemia
-Likely associated with ASCVD history; no recent A1c on record
-Home medications include Lantus 15 units nightly, metformin, glimepiride
-Hold oral medications; C/W Lantus and ISS with Accu-Cheks here
-BG goal 140-180, avoid hypoglycemia
#CKD stage III
-Baseline creatinine near 1.3 with eGFR in the 50s
-No known history of chronic acidemia, AOCD, bone mineral disease
-Renal function stable at this time
#Hypertension
-Home medications include metoprolol tartrate, nifedipine, losartan
-No known history of hypertensive systemic disease
-Blood pressure as of this morning elevated with SBP 160
-Ordered hydralazine as needed
#Gout
-Home medications include allopurinol
-No signs or symptoms of flare
#HLD
-ASCVD history as above, home meds include moderate intensity rosuvastatin
#BPH
-Home medications include tamsulosin
-No signs of urine retention here
#Dementia
-Reported to be mild, suspect that may be worse than records show
-May be complicated by some depression, states he stopped taking his meds, does not care when he dies
DVT prophylaxis: Lovenox
Diet: Start regular diet
CODE STATUS: DNR
Anticipated Discharge: > 48 hours
Subjective/Interval History
-
Date of Service: September 25, 2024
Seen and examined at the bedside. No acute events reported overnight. AFVSS this morning
Troponin trend peaked at 1.05 then began to downtrend, patient denies any chest pain at any point
Denies any acute complaints. Asks when he is able to eat
Objective Data
-
Vital Signs:
Vital Signs
Temp Pulse Resp BP Pulse Ox
97.3 F 59 18 157/62 100
09/25/24 09:45 09/25/24 10:41 09/25/24 10:41 09/25/24 10:41 09/25/24 10:41
Review of Systems
-
Unable to obtain full review of systems at this time due to: Dementia
History Source: Patient
All other systems: Reviewed and negative
Physical Exam
-
General: Well Developed, Well Nourished, No Apparent Distress and Comfortable
HEENT: Normocephalic, Atraumatic, Moist Mucous Membranes and Anicteric
Respiratory: Clear to Auscultation and Non Labored Respirations
Cardiac: Regular Rhythm and S1/S2; Negative Murmur, Rub or Gallop
GI: Soft, Nontender, Nondistended and Normal Bowel Sounds
Musculoskeletal: No Clubbing, No Cyanosis and No Edema
Skin: Warm and Dry; Negative Rash
Neuro: AO x 3 and Nonfocal/Grossly Intact
Psych: Calm
Data Reviewed
-
Labs: Labs Reviewed by me, Discussed with Physician (Cardiology), Discussed with Nurse and Discussed with Patient
[2024-09-25] MEDS: LOPRESSOR PO (14:37)
[2024-09-25] MEDS: NOVOLOG FLEXPEN-LOW RESISTANCE SC (14:37)
[2024-09-25] MEDS: PLAVIX 75 MG PO (14:38)
[2024-09-25] MEDS: ASPIR LOW (ENTERIC COATED) 81 MG PO (14:38)
--- NOTE | 2024-09-25 15:03 | CM ---
CM following re: discharge planning.
Reviewed pt's chart, met with pt.
Pt is an 83 year old male, admitted with primary dx of Weakness / Falls
Pt reports he lives with spouse 2SH, 2 steps top enter, has 2 supportive children. Pt reports he ambulates with a walker and has been falling recently. Pt reports he has VN services and cannot recall the name of VN provider.
PT and OT will evaluate the pt to determine a level of care at discharge.
PCP: Alma Khan
Pharmacy: [facility]
D/C plan: Awaiting PT/OT evaluations to confirm next level of care.
CM will follow with discharge plan updates as hospitalization progresses
[2024-09-25 15:41] LABS: Troponin I 0.748 ng/ml
[2024-09-25 17:47] LABS: Glucose - Point of Care 314 mg/dl (70-99)
--- NOTE | 2024-09-25 18:04 | PTCARENOTE ---
Pt is restless, attmets to get out of bed without assisstance.
[2024-09-25] MEDS: CRESTOR 10 MG PO (18:11)
[2024-09-25] MEDS: LOVENOX 40 MG SC (18:11)
[2024-09-25] MEDS: NOVOLOG FLEXPEN-LOW RESISTANCE 4 UNITS SC (18:21)
[2024-09-25 21:25] LABS: Glucose - Point of Care 241 mg/dl (70-99)
[2024-09-25] MEDS: LANTUS 0.1 UNITS SC (22:54)
[2024-09-26 03:33] VITALS: BP 155/74
[2024-09-26] MEDS: NOVOLOG FLEXPEN-LOW RESISTANCE SC ×2 (05:02→10:26)
[2024-09-26 06:00] VITALS: BMI 24.3
[2024-09-26 06:44] LABS: % Basophils 0.6 % (0-2); % Eosinophils 2.2 % (0-6); % Immature Granulocytes 0.2 % (0-0.5); % Lymphocytes 32.6 % (20.5-51.1); % Monocytes 7.4 % (1.7-9.3); Absolute Eosinophils 0.1 10^3/uL (0-0.7); Absolute Lymphocytes 1.8 10^3/uL (1.2-3.4); Absolute Monocytes 0.4 10^3/uL (0.1-0.6); Absolute Neutrophils 3.1 10^3/uL (1.4-6.5); Hematocrit 40.4 % (39.0-52.0); Hemoglobin 13.9 g/dL (13.0-18.0); Mean Corp Hgb Conc. 34.4 g/dL (33.0-37.0); Mean Corpuscular Volume 93.1 fL (80.0-94.0); Mean Platelet Volume 10.7 fL (7.4-10.4); Nucleated Red Blood Cells % 0 % (-); Platelet Count 167 10^3/uL (130-400); Red Blood Cell Count 4.34 10^6/uL (4.70-6.10); Red Cell Dist. Width 12.7 % (11.5-14.5); White Blood Cell Count 5.4 10^3/uL (4.8-10.8)
[2024-09-26 07:12] LABS: Blood Urea Nitrogen 26 mg/dl (9-20); Calcium 8.8 mg/dl (8.4-10.2); Carbon Dioxide 30 mmol/L (22-30); Estimated Creatinine Clearance 42 ml/min; Glucose 80 mg/dl (70-99); HDL Cholesterol 44 mg/dl; LDL Cholesterol, Calculated 143 mg/dl; Potassium 3.3 mmol/L (3.5-5.1); Sodium 139 mmol/L (135-145); Total Cholesterol 217 mg/dl (50-199); Triglyceride 150 mg/dl (10-149); Very Low Density Lipoprotein 30 mg/dl (0-30); eGFR 54.51
[2024-09-26 07:17] LABS: Chloride 100 mmol/L (98-107)
[2024-09-26 08:40] LABS: Glucose - Point of Care 101 mg/dl (70-99)
[2024-09-26 08:50] VITALS: BP 158/75
[2024-09-26] MEDS: LOPRESSOR 25 MG PO (10:26)
[2024-09-26] MEDS: FLUSH (NSS) 1 FLUSH IV (10:27)
[2024-09-26] MEDS: ASPIR LOW (ENTERIC COATED) 81 MG PO (10:27)
[2024-09-26] MEDS: PLAVIX 75 MG PO (10:27)
[2024-09-26 11:36] LABS: Glycohemoglobin (HgbA1c) 9.7 % (4.0-5.6)
[2024-09-26 11:53] VITALS: BP 151/55
[2024-09-26 12:04] LABS: Glucose - Point of Care 290 mg/dl (70-99)
--- NOTE | 2024-09-26 12:25 | PTCARENOTE ---
attempted to complete med rec, call to patients since patient is forgetful. his said she wasn't sure what medications her is taking- when talking with patient he said he was 'tired of taking so many medications, so he stopped them
all but one. he said he discussed it with his doctor and said he would only take one pill and asked his doctor which pill was most important. Patient unable to tell me the name of the one pill he is taking. Dr Herring aware of above.
--- NOTE | 2024-09-26 12:39 | W.PN.HOSP.TC ---
Today's Communication/Plan
-
Plan for TTE tomorrow
Delirium precautions
Complete med rec
PT/OT, CM for SNF
Assessment / Plan
Assessment / Plan
#Elevated troponin
#H/O CAD s/p PCI
-Unclear if this is demand secondary to his fall in the context of medication noncompliance versus new NSTEMI
-Has been resumed on home medications; troponin trend 0.7�1.05�0.87
-ECG with bifascicular block but no obvious acute ST or T wave change
-Patient is not complaining of chest pain here, no chest pain per history
-Suspect that this is not NSTEMI; troponin trend not consistent with ACS
-Continue home CAD regimen including DAPT, statin, beta-suma
-Echocardiogram planned for Friday
#Dementia with superimposed delirium
-Reported to be mild, suspect that may be worse than records show
-May be complicated by some depression, states he stopped taking his meds, does not care when he dies
-Overnight required a video one-to-one for some reported agitation
-Consider antipsychotics if agitation worsens
-Delirium precautions
#Mechanical falls
#Ambulatory dysfunction
-Patient states he recalls his falls no does not know why he fell
-PT/OT consulted for likely placement to SNF
#IDDM with hyperglycemia
-Likely associated with ASCVD history; no recent A1c on record
-Home medications include Lantus 15 units nightly, metformin, glimepiride
-Hold oral medications; C/W Lantus and ISS with Accu-Cheks here
-BG goal 140-180, avoid hypoglycemia
#CKD stage III
-Baseline creatinine near 1.3 with eGFR in the 50s
-No known history of chronic acidemia, AOCD, bone mineral disease
-Renal function stable at this time
#Hypertension
-Home medications include metoprolol tartrate, nifedipine, losartan
-No known history of hypertensive systemic disease
-Blood pressure as of this morning elevated with SBP 160
-Ordered hydralazine as needed
#Gout
-Home medications include allopurinol
-No signs or symptoms of flare
#HLD
-ASCVD history as above, home meds include moderate intensity rosuvastatin
#BPH
-Home medications include tamsulosin
-No signs of urine retention here
DVT prophylaxis: Lovenox
Diet: Start regular diet
CODE STATUS: DNR
Anticipated Discharge: 24 - 48 hours
Subjective/Interval History
-
Date of Service: September 26, 2024
Seen and examined at the bedside. No acute events reported overnight though did have some agitation and required video one-to-one. AFVSS this morning
He appears well today, no signs of agitation. States he feels generally well. Denies chest pain or dyspnea
Denies any acute complaints
Objective Data
-
Labs:
Laboratory Results
09/26/24
05:58
WBC 5.4
Hgb 13.9
Hct 40.4
Plt Count 167
Sodium 139
Potassium 3.3 L
Chloride 100
Carbon Dioxide 30
BUN 26 H
Creatinine 1.3
Glucose 80
Calcium 8.8
Vital Signs:
Vital Signs
Temp Pulse Resp BP Pulse Ox
97.7 F 58 18 151/55 96
09/26/24 11:53 09/26/24 11:53 09/26/24 11:53 09/26/24 11:53 09/26/24 11:53
I&O
09/25/24 09/26/24 09/27/24
06:59 06:59 06:59
Output Total 680 / 680
Balance -680 / -680
Review of Systems
-
History Source: Patient
All other systems: Reviewed and negative
Physical Exam
-
General: Well Developed, Well Nourished, No Apparent Distress and Comfortable
HEENT: Normocephalic, Atraumatic, Moist Mucous Membranes and Anicteric
Respiratory: Clear to Auscultation and Non Labored Respirations; Negative Accessory Resp Muscle Use
Cardiac: Regular Rhythm and S1/S2; Negative Murmur, Rub, JVD or Gallop
GI: Soft, Nontender, Nondistended and Normal Bowel Sounds
Musculoskeletal: No Clubbing, No Cyanosis and No Edema
Skin: Warm and Dry; Negative Rash
Neuro: Awake, Alert, Oriented and Nonfocal/Grossly Intact; Negative Tremors
Psych: Calm
Data Reviewed
-
Medical Tests (Nuc Med, Echo etc): Discussed with Patient
Labs: Labs Reviewed by me and Discussed with Patient
[2024-09-26] MEDS: NOVOLOG FLEXPEN-LOW RESISTANCE 3 UNITS SC (13:14)
[2024-09-26] MEDS: KCL 40 MEQ PO (13:15)
[2024-09-26 16:26] VITALS: BP 156/63
[2024-09-26 17:36] LABS: Glucose - Point of Care 307 mg/dl (70-99)
[2024-09-26] MEDS: NOVOLOG FLEXPEN-LOW RESISTANCE 4 UNITS SC (18:02)
[2024-09-26] MEDS: LOVENOX 40 MG SC (18:04)
[2024-09-26] MEDS: CRESTOR 10 MG PO (18:04)
[2024-09-26 19:39] VITALS: BP 156/57
[2024-09-26 21:22] LABS: Glucose - Point of Care 288 mg/dl (70-99)
[2024-09-26] MEDS: LANTUS 0.1 UNITS SC (21:56)
[2024-09-26 23:51] VITALS: BP 146/73
[2024-09-27] VITALS (7 sets, daily range): BP systolic 130–177; BP diastolic 51–74; PULSE 58–78; O2SAT 100; BMI 24.9
[2024-09-27 08:11] LABS: Glucose - Point of Care 157 mg/dl (70-99)
[2024-09-27] MEDS: ASPIR LOW (ENTERIC COATED) 81 MG PO (09:32)
[2024-09-27] MEDS: PLAVIX 75 MG PO (09:32)
[2024-09-27] MEDS: NOVOLOG FLEXPEN-LOW RESISTANCE 1 UNITS SC ×2 (09:32→13:19)
[2024-09-27] MEDS: LOPRESSOR PO (09:33)
[2024-09-27] MEDS: DESENEX/MITRAZOL/ZEASORB 1 APPLIC TOPICAL ×2 (09:33→19:40)
[2024-09-27] MEDS: FLUSH (NSS) 1 FLUSH IV (09:34)
--- NOTE | 2024-09-27 09:47 | W.PN.CARDCBS ---
Today's Communication / Plan
-
Echo pending
Outpt follow up with outside dairy quality assurance officer.
Impression / Plan
-
.
Impression:
Dementia
Admission for frequent falls
Right bundle branch block
First-degree AV delay
Elevated troponin, likely Non-SC troponin peak 1
Noncompliant with medications
History of taking DAPT therapy
Urinalysis noted
Prostate cancer
Plan:
Cont medical therapy of likely non-SC troponin. Peak trop 1
Pt denies cp.
Echo is pending. If echo stable likely outpt cardiac follow up as recommendation.
Obtain old records.
Cont DAPT for hx of PCI.
Cont supportive care. PT/OT. will likely need SNF
Discussed with nursing.
Outpt cardiac follow up with his outside dairy quality assurance officer.
Progress Note - [employer]
Subjective
Date of Service: September 27, 2024
Pt seen and examined. No complaints. No chest pain or shortness of breath. He wants to go home.
Objective
Labs:
09/26/24 05:58
Labs
Hgb 13.9 g/dL (13.0-18.0) 09/26/24 05:58
Hct 40.4 % (39.0-52.0) 09/26/24 05:58
Plt Count 167 10^3/uL (130-400) 09/26/24 05:58
Sodium 139 mmol/L (135-145) 09/26/24 05:58
Potassium 3.3 mmol/L (3.5-5.1) L 09/26/24 05:58
BUN 26 mg/dl (9-20) H 09/26/24 05:58
Creatinine 1.3 mg/dL (0.7-1.3) 09/26/24 05:58
Glucose 80 mg/dl (70-99) 09/26/24 05:58
Troponins
09/24/24 09/25/24 09/25/24
21:56 05:14 10:47
Troponin I 0.795 H* 1.050 H* D 0.871 H*
09/25/24 09/25/24
15:05 23:31
Troponin I 0.748 H* 0.540 H*
Vital Signs and I&O:
Vital Signs
Temp Pulse Resp BP Pulse Ox
98.3 F 54 18 139/51 98
09/27/24 08:21 09/27/24 09:33 09/27/24 08:21 09/27/24 08:21 09/27/24 08:21
Vital Signs
Temp Pulse Resp BP Pulse Ox
98.3 F 54 18 139/51 98
09/27/24 08:21 09/27/24 09:33 09/27/24 08:21 09/27/24 08:21 09/27/24 08:21
Intake & Output
09/25/24 09/26/24 09/27/24 09/28/24
06:59 06:59 06:59 06:59
Output Total 680 / 680 150 / 150
Balance -680 / -680 -150 / -150
Physical Exam
Physical Exam
General: No acute distress, awake and alert
Neck: Negative JVD
Heart: Regular, Negative S3 positive S1/S2, Negative S4, No murmur
Lungs: CTA b/l, negative wheezes/rales/rhonchi
Abd: Positive BS, NT/ND, neg rebound/rigidity/guarding
Ext: Negative cyanosis/clubbing/edema
Neuro: nonfocal
[2024-09-27 10:07] LABS: Blood Urea Nitrogen 30 mg/dl (9-20); Calcium 8.9 mg/dl (8.4-10.2); Carbon Dioxide 30 mmol/L (22-30); Chloride 102 mmol/L (98-107); Estimated Creatinine Clearance 39 ml/min; Glucose 139 mg/dl (70-99); Potassium 4.1 mmol/L (3.5-5.1); Sodium 139 mmol/L (135-145); eGFR 49.87
[2024-09-27] MEDS: STERILE WATER FOR INJECTION 10 ML IV (11:22)
[2024-09-27] MEDS: ROCEPHIN 1000 MG IV (11:22)
[2024-09-27] MEDS: FLUSH (NSS) 2 FLUSH IV (11:22)
--- NOTE | 2024-09-27 12:23 | W.PN.HOSP.TC ---
Today's Communication/Plan
-
ECHO pending
consolidate meds
IV abx
start dispo to snf
Assessment / Plan
Assessment / Plan
# Non-RI ischemic myocardial injury
#H/O CAD s/p PCI
-Unclear if this is demand secondary to his fall in the context of medication noncompliance
-Has been resumed on home medications
-ECG with bifascicular block but no obvious acute ST or T wave change
-Patient is not complaining of chest pain here, no chest pain per history
-Suspect that this is not NSTEMI; troponin trend not consistent with ACS
-Continue home CAD regimen including DAPT, statin, beta-suma
-Echocardiogram pending
#Dementia with superimposed delirium probably exacerbated with related tract infection
-Reported to be mild, suspect that may be worse than records show
-May be complicated by some depression, states he stopped taking his meds,
-Consider antipsychotics if agitation worsens
-Delirium precautions.
# Polymicrobial urinary tract infection
-Start patient on ceftriaxone. Switch to p.o. antibiotics on discharge. Susceptibility noted.
#Mechanical falls
#Ambulatory dysfunction
-Patient states he recalls his falls no does not know why he fell
-PT/OT consulted for likely placement to SNF
#IDDM with hyperglycemia
-Likely associated with ASCVD history; A1c found to be 9.7.
-Home medications include Lantus 15 units nightly, metformin, glimepiride
-Hold oral medications; C/W Lantus and ISS with Accu-Cheks here
-BG goal 140-180, avoid hypoglycemia
#CKD stage III
-Baseline creatinine near 1.3 with eGFR in the 50s
-No known history of chronic acidemia, AOCD, bone mineral disease
-Renal function stable at this time
#Hypertension Primary
-No known history of hypertensive systemic disease
-Restart nifedipine 30mg daily. a
-Ordered hydralazine as needed
#Gout
-Home medications include allopurinol
-No signs or symptoms of flare
#HLD
-ASCVD history as above, home meds include moderate intensity rosuvastatin
#BPH
-Home medications include possible tamsulosin
-No signs of urine retention here. can restart if needed.
DVT prophylaxis: Lovenox
Diet: Start regular diet
CODE STATUS: DNR
Updated spouse over the phone in detail. By the spouse patient was taken off multiple medication for some reason by primary doctor. Patient was only taking metformin 500 mg daily. Discussed with spouse that patient was reintroduced to multiple
medication and she agreed with the plan.
PT/OT-SNF. CM aware. start dispo process.
Anticipated Discharge: Within 24 hours
Subjective/Interval History
-
Date of Service: September 27, 2024
Resting in bed comfortably
no overnight events
Objective Data
-
Labs:
Laboratory Results
09/27/24
08:47
Sodium 139
Potassium 4.1
Chloride 102
Carbon Dioxide 30
BUN 30 H
Creatinine 1.4 H
Glucose 139 H
Calcium 8.9
Vital Signs:
Vital Signs
Temp Pulse Resp BP Pulse Ox
98.3 F 54 18 139/51 96
09/27/24 11:52 09/27/24 09:33 09/27/24 11:52 09/27/24 08:21 09/27/24 11:52
I&O
09/26/24 09/27/24 09/28/24
06:59 06:59 06:59
Output Total 680 / 680 150 / 150
Balance -680 / -680 -150 / -150
Data Reviewed
-
Total Time Spent with Patient (in minutes): 55
[2024-09-27 12:48] LABS: Glucose - Point of Care 193 mg/dl (70-99)
--- NOTE | 2024-09-27 14:05 | PN.CDI ---
CDI
- -
CDI:
Physician Documentation Request
Admit Date: 09/25/24 06:48
Dear Doctor Tomas,
Please review the following and provide your response in the progress notes.
Clinical Indicators:
PN, 09/27
#Dementia with superimposed delirium probably exacerbated with related tract infection
#...-Reported to be mild, suspect that may be worse than records show
#...-May be complicated by some depression, states he stopped taking his meds,
#...-Consider antipsychotics if agitation worsens
#...-Delirium precautions.
# Polymicrobial urinary tract infection
#...Start patient on ceftriaxone. Switch to p.o. antibiotics on discharge.
Based on the above, please clarify in the most likely etiology of the delirium....
Multifactorial Toxic Metabolic Encephalopathy due to UTI, non compliance with medications, progression of dementia, metabolic derangements, etc.
Dementia with superimposed delirium only
Other (please specify)
Use of terms such as suspected, likely, concern for, or probable (associated with a specific diagnosis that is being evaluated, monitored, or treated as if it exists) are acceptable and can be coded in the inpatient setting, when documented at the
time of discharge.
Thank you,
Selina Irvin RN BSN CCDS
CDI Specialist
please contact via tiger text
Please use your independent medical judgment in providing your response.
--- NOTE | 2024-09-27 14:52 | CM ---
Chart reviewed. PT/OT evaluated pt and is recommending skilled rehab at this time.
CM spoke w/ pt's spouse, Crissy, regarding rehab needs. Per Crissy, agreeable for pt to go to rehab.
Crissy did not have any specific facilities for CM to refer to. Crissy permitted CM to send referrals in [place]
Referrals sent to [facility], [facility], [facility], [facility] and [facility]. CM will await determinations
Will need prior auth
Plan: SNF; pending accepting facility and auth approval
[2024-09-27 17:14] LABS: Glucose - Point of Care 305 mg/dl (70-99)
[2024-09-27] MEDS: NOVOLOG FLEXPEN-LOW RESISTANCE 4 UNITS SC (17:23)
[2024-09-27] MEDS: CRESTOR 10 MG PO (17:24)
[2024-09-27] MEDS: LOVENOX 40 MG SC (17:24)
[2024-09-27 21:01] LABS: Glucose - Point of Care 287 mg/dl (70-99)
[2024-09-27] MEDS: LANTUS 0.1 UNITS SC (21:08)
[2024-09-28 00:40] VITALS: BP 165/73
[2024-09-28] MEDS: APRESOLINE 10 MG IV (00:42)
[2024-09-28 04:08] VITALS: BP 160/66
[2024-09-28 05:56] VITALS: BMI 26.9
[2024-09-28 07:57] VITALS: BP 171/76; BP 176/68; BP 189/70; PULSE 59; PULSE 64; PULSE 69
[2024-09-28 08:08] LABS: Glucose - Point of Care 160 mg/dl (70-99)
[2024-09-28 08:24] VITALS: BP 169/77
[2024-09-28] MEDS: NOVOLOG FLEXPEN-LOW RESISTANCE 1 UNITS SC (09:27)
[2024-09-28] MEDS: DESENEX/MITRAZOL/ZEASORB 1 APPLIC TOPICAL (09:28)
[2024-09-28] MEDS: ASPIR LOW (ENTERIC COATED) 81 MG PO (09:28)
[2024-09-28] MEDS: PROCARDIA XL (EXTENDED RELEASE) 30 MG PO (09:28)
[2024-09-28] MEDS: PLAVIX 75 MG PO (09:28)
[2024-09-28] MEDS: LOPRESSOR 25 MG PO (09:28)
[2024-09-28] MEDS: ROCEPHIN 1000 MG IV (09:30)
[2024-09-28] MEDS: STERILE WATER FOR INJECTION 10 ML IV (09:30)
--- NOTE | 2024-09-28 10:17 | CM ---
[facility] is willing to accept pt today. Per pt's spouse, agreeable to [facility]
Hospitalist agreeable for d/c today pending auth
CM called [employer] to initiate auth. CM spoke w/ Alma.
Auth approved beginning today, 09/28 w/ NRD 10/04. Facility to call [phone] for verbal review
Auth ref # [id number]
[facility] updated w/ auth info
Pt will need ambulance transport
Spouse updated. IMM reviewed, copy on chart
[facility]
Report: [phone]

Plan: [facility] via ambulance
--- NOTE | 2024-09-28 11:40 | W.PN.CARDCBS ---
Today's Communication / Plan
-
Echo stable
Outpt follow up with Dr Neo Ricardo
Please recall if needed
Impression / Plan
-
.
Impression:
Dementia
Admission for frequent falls
Right bundle branch block
First-degree AV delay
Elevated troponin, likely Non-CA troponin peak 1
Noncompliant with medications
History of taking DAPT therapy
Urinalysis noted
Prostate cancer
Plan:
Cont medical therapy of likely non-CA troponin. Peak trop 1.
Pt denies cp.
Echo Sep 27 2024 showed Mildly reduced to low normal left ventricular systolic function. Left ventricular ejection fraction is 45-50%. Global hypokinesis. Mild concentric left ventricular hypertrophy.
Mild aortic regurgitation. No prior study available for comparison.
Old records show that he follows with Dr Neo Ricardo last seen April 27 2024.
Cont DAPT for hx of PCI.
Cont supportive care. PT/OT. will likely need SNF
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
Please recall if needed
Progress Note - [employer]
Subjective
Date of Service: September 28, 2024
Pt seen and examined. No complaints. No chest pain or shortness of breath.
Objective
Labs:
09/26/24 05:58
09/27/24 08:47
Labs
Hgb 13.9 g/dL (13.0-18.0) 09/26/24 05:58
Hct 40.4 % (39.0-52.0) 09/26/24 05:58
Plt Count 167 10^3/uL (130-400) 09/26/24 05:58
Sodium 139 mmol/L (135-145) 09/27/24 08:47
Potassium 4.1 mmol/L (3.5-5.1) 09/27/24 08:47
BUN 30 mg/dl (9-20) H 09/27/24 08:47
Creatinine 1.4 mg/dL (0.7-1.3) H 09/27/24 08:47
Glucose 139 mg/dl (70-99) H 09/27/24 08:47
Troponins
09/25/24 09/25/24
15:05 23:31
Troponin I 0.748 H* 0.540 H*
Vital Signs and I&O:
Vital Signs
Temp Pulse Resp BP Pulse Ox
98.2 F 64 18 169/77 98
09/28/24 08:24 09/28/24 09:28 09/28/24 08:24 09/28/24 09:28 09/28/24 09:15
Vital Signs
Temp Pulse Resp BP Pulse Ox
98.2 F 64 18 169/77 98
09/28/24 08:24 09/28/24 09:28 09/28/24 08:24 09/28/24 09:28 09/28/24 09:15
Intake & Output
09/26/24 09/27/24 09/28/24 09/29/24
06:59 06:59 06:59 06:59
Intake Total 720 / 720
Output Total 680 / 680 150 / 150 150 / 150
Balance -680 / -680 -150 / -150 570 / 570
Physical Exam
Physical Exam
General: No acute distress,awake
Neck: Negative JVD
Heart: Regular, Negative S3 positive S1/S2, Negative S4, No murmur
Lungs: CTA b/l, negative wheezes/rales/rhonchi
Abd: Positive BS, NT/ND, neg rebound/rigidity/guarding
Ext: Negative cyanosis/clubbing/edema
Neuro: nonfocal
--- NOTE | 2024-09-28 12:14 | W.PN.HOSP.TC ---
Today's Communication/Plan
-
dc to SNF
po abx
Assessment / Plan
Assessment / Plan
# Non-[place] ischemic myocardial injury
#H/O CAD s/p PCI
-Unclear if this is demand secondary to his fall in the context of medication noncompliance
-ECG with bifascicular block but no obvious acute ST or T wave change
-Patient is not complaining of chest pain here, no chest pain per history
-Suspect that this is not NSTEMI; troponin trend not consistent with ACS
-Continue home CAD regimen including DAPT, statin, beta-suma
-Echocardiogram noted
# Toxic metabolic encephalopathy likely secondary to worsening of dementia versus delirium due to noncompliance with medication versus urinary tract infection
-Reported to be mild, suspect that may be worse than records show
-May be complicated by some depression, states he stopped taking his meds,
-Consider antipsychotics if agitation worsens
-Delirium precautions.
# Polymicrobial urinary tract infection
-Start patient on ceftriaxone. Switch to p.o. antibiotics on discharge. Susceptibility noted.
#Mechanical falls
#Ambulatory dysfunction
-Patient states he recalls his falls no does not know why he fell
-PT/OT consulted for likely placement to SNF
#IDDM with hyperglycemia
-Likely associated with ASCVD history; A1c found to be 9.7.
-Home medications include Lantus 15 units nightly, metformin, glimepiride
-Hold oral medications; C/W Lantus and ISS with Accu-Cheks here
#CKD stage III
-No known history of chronic acidemia, AOCD, bone mineral disease
-Renal function stable at this time
#Hypertension Primary
-No known history of hypertensive systemic disease
-Restart nifedipine 60mg daily.
-Ordered hydralazine as needed
#Gout
-Home medications include allopurinol
-No signs or symptoms of flare
#HLD
-ASCVD history as above, home meds include moderate intensity rosuvastatin
#BPH
-Home medications include possible tamsulosin
-No signs of urine retention here. can restart if needed.
DVT prophylaxis: Lovenox
Diet: Start regular diet
CODE STATUS: DNR
Updated spouse over the phone in detail on 09/28. By the spouse patient was taken off multiple medication for some reason by primary doctor. Patient was only taking metformin 500 mg daily. Discussed with spouse that patient was reintroduced to
multiple medication and she agreed with the plan.
PT/OT-SNF.
More than 30 minutes spent in discharge including
Final examination of the patient
Summarizing hospital stay
Instructions for continuing care to all relevant caregivers
Preparation of discharge records, prescriptions, and referral forms
Total time spent (in minutes): 55
Anticipated Discharge: Today
Subjective/Interval History
-
Date of Service: September 28, 2024
sitting in chair
tolerating diet
Objective Data
-
Vital Signs:
Vital Signs
Temp Pulse Resp BP Pulse Ox
98.2 F 64 18 169/77 98
09/28/24 08:24 09/28/24 09:28 09/28/24 08:24 09/28/24 09:28 09/28/24 09:15
I&O
09/27/24 09/28/24 09/29/24
06:59 06:59 06:59
Intake Total 720 / 720
Output Total 150 / 150 150 / 150
Balance -150 / -150 570 / 570
Physical Exam
-
General: Well Developed, Well Nourished, No Apparent Distress and Comfortable
HEENT: Normocephalic, Atraumatic, Moist Mucous Membranes and Anicteric
Respiratory: Clear to Auscultation and Non Labored Respirations; Negative Accessory Resp Muscle Use
Cardiac: Regular Rhythm and S1/S2; Negative Murmur, Rub, JVD or Gallop
GI: Soft, Nontender, Nondistended and Normal Bowel Sounds
Musculoskeletal: No Clubbing, No Cyanosis and No Edema
Skin: Warm and Dry; Negative Rash
Neuro: Awake and Nonfocal/Grossly Intact; Negative Tremors
Psych: Calm and Apparent Dementia
[2024-09-28 12:15] LABS: Glucose - Point of Care 223 mg/dl (70-99)
--- NOTE | 2024-09-28 12:28 | W.DCSUMMARY ---
Discharge Summary
Discharge Data
Date of Admission: 09/25/24
Date of Discharge: 09/28/24
-
Pending Results: No
Hospital Course
83-year-old male with extensive past medical history CAD status post PCI, dementia, mechanical falls, diabetes mellitus, CKD, primary hypertension, hyperlipidemia, remote history of gout was presenting from home with complaint of frequent falls.
Patient scheduled to be falls in 24 hours timeframe. Patient stated he got fed up and stopped taking multiple medications at home. States his primary care doctor and he was restarted on only some important medication. Patient was found to
elevated troponin and cardiology was consulted. Patient was restarted on aspirin and Plavix. Statin and beta-suma was continued. Patient underwent echocardiogram Sep 27 2024 showed Mildly reduced to low normal left ventricular systolic
function. Left ventricular ejection fraction is 45-50%. Global hypokinesis. Mild concentric left ventricular hypertrophy. Mild aortic regurgitation. No prior study available for comparison. Cardiology recommended continue with goal-directed medical
therapy and no further plan for any intervention. Patient was also found to urinary tract infection polymicrobial and was started on ceftriaxone and transition to p.o. antibiotics on discharge. Patient medications were narrowed down and multiple
medications were discontinued. Patient was eval by physical and Occupational Therapy with plan to go to nursing home facility. Patient spouse was updated throughout hospitalization. Patient was tolerating goal-directed medical therapy well.
Patient was tolerating diet. Patient be discharged to nursing home facility.
Discharge Plan
-
Patient Disposition: Senior Living/SNF
Discharge Diagnosis/Procedures: Nonischemic myocardial injury
Polymicrobial urinary tract infection
Toxic metabolic encephalopathy
Noncompliance with medications
Mechanical fall
Ambulatory dysfunction
Condition: Fair
Diet: 2 Gram Sodium, Diabetic, Carb Controlled and Restrict fluids to 48 oz
Activity: With assistance and As tolerated
Driving Restrictions: Not until seen by your Dr
Specialty Instructions: Weigh Daily- Call MD for wt gain/loss 3 lbs overnight/5 lbs in 1 week
Activity Restrictions/Additional Instructions:
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
Referrals:
Alma Khan, DO [Family Provider] - in less than 1 week
Prescriptions:
New
cephalexin 500 mg capsule
500 mg PO QID 5 Days Qty: 20 0RF
Continued
glimepiride 2 MG tablet
2 mg PO DAILY
rosuvastatin 10 MG tablet
10 mg PO QPM
metoprolol tartrate 25 MG tablet
25 mg PO DAILY
insulin glargine [Lantus Solostar U-100 Insulin] 300 UNITS/3 ML insulin pen
15 units SC HS
acetaminophen [Tylenol Extra Strength] 500 MG tablet
1,000 mg PO Q6H PRN (Reason: Pain)
Rx Instructions:
Do not exceed >4000 mg daily.
docusate sodium 100 MG capsule
100 mg PO BID
cyanocobalamin (vitamin B-12) 500 mcg Tablet
clopidogrel 75 MG tablet
75 mg PO DAILY Qty: 30 0RF
aspirin 81 MG tablet,delayed release (DR/EC)
81 mg PO DAILY Qty: 30 0RF
nifedipine 60 MG tablet extended release 24hr
60 mg PO DAILY Qty: 30 0RF
Changed
metformin 500 MG tablet
500 mg PO 0800,1700 Qty: 0 0RF
Patient Comments:
per patients he was only taking it once a day
Discontinued
allopurinol 100 MG tablet
100 mg PO MOWEFR
vitamin B complex-folic acid [Super B Maxi Complex] 0.4 MG tablet
0.4 mg PO DAILY
fish oil-dha-epa 1 EACH capsule
2 tab PO BID
tramadol 50 MG tablet
50 mg PO Q6HPRN PRN (Reason: moderate-severe pain) Qty: 30 0RF
Rx Instructions:
1 tab for moderate-severe pain
dx lami
ongoing therapy
hydrocodone-acetaminophen 1 TABLET tablet
1 tab PO Q4HPRN PRN (Reason: pain) Qty: 10 0RF
loperamide [Imodium A-D] 2 MG capsule
2 mg PO TID PRN (Reason: loose stools) Qty: 14 0RF
losartan 50 MG tablet
50 mg PO DAILY
Rx Instructions:
Hold if systolic blood pressure <130 while on Tramadol
sennosides [senna] 1 TABLET tablet
2 tab PO BID
tamsulosin 0.4 MG capsule
0.4 mg PO DAILY
tamsulosin 0.4 MG capsule
0.4 mg PO DAILY
cephalexin 500 MG capsule
500 mg PO TID
triamcinolone acetonide 1 APPLIC ointment
1 applic topical TID
gabapentin 100 MG capsule
200 mg PO TID
ciclopirox 8 % Solution
TOPICAL
diphenhydramine HCl 25 mg Capsule
vitamin B complex [B Complex Vitamin] Tablet
1 tab PO DAILY
mirabegron 50 mg Tablet Extended Release 24 Hr
50 mg PO DAILY
omega-3 fatty acids 1,000 mg Capsule
triamcinolone acetonide [Kenalog] 0.1 % Cream
TOPICAL
Discharge Orders:
Discharge Patient (As Directed); Ordered 09/28/24
Ordered By: Reji Marin
Discharge Date and Time
Print Language: DIVEHI
[2024-09-28] MEDS: NOVOLOG FLEXPEN-LOW RESISTANCE 2 UNITS SC (13:14)
[2024-09-28 15:40] VITALS: BP 150/69
--- NOTE | 2024-09-28 16:12 | PTCARENOTE ---
Called Ruddy Sharma 3 times to give report to [facility] Follower and there wa sno answer just a vmail.
[2024-09-28 17:06] LABS: Glucose - Point of Care 385 mg/dl (70-99)
[2024-09-28] MEDS: NOVOLOG FLEXPEN-LOW RESISTANCE 5 UNITS SC (17:44)
[2024-09-28] MEDS: LOVENOX 40 MG SC (17:44)
[2024-09-28] MEDS: CRESTOR 10 MG PO (17:44)
== END 2024-09-28 18:49 | DRG 689 ==
LOC: 4 EAST ACU 06:48
PROVIDERS: Emergency Medicine; ADMITTING PHYSICIAN Hospitalist; ATTENDING PHYSICIAN Hospitalist; EMERGENCY PHYSICIAN Student in an Organized Health Care Education/Training Program; FAMILY PHYSICIAN Internal Medicine; OTHER PHYSICIAN Internal Medicine Cardiovascular Disease
DX: N39.0 Urinary tract infection, site not specified (principal); G92.8 Other toxic encephalopathy; I5A Non-ischemic myocardial injury (non-traumatic); I45.2 Bifascicular block; F05 Delirium due to known physiological condition; I25.10 Atherosclerotic heart disease of native coronary artery without angina pectoris; F03.A0 Unspecified dementia, mild, without behavioral disturbance, psychotic disturbance, mood disturbance, and anxiety; R29.6 Repeated falls; N18.30 Chronic kidney disease, stage 3 unspecified; I12.9 Hypertensive chronic kidney disease with stage 1 through stage 4 chronic kidney disease, or unspecified chronic kidney disease; E11.22 Type 2 diabetes mellitus with diabetic chronic kidney disease; E11.65 Type 2 diabetes mellitus with hyperglycemia; M10.9 Gout, unspecified; I35.1 Nonrheumatic aortic (valve) insufficiency; N40.0 Benign prostatic hyperplasia without lower urinary tract symptoms; Z66 Do not resuscitate; Z91.148 Patient's other noncompliance with medication regimen for other reason; Z95.5 Presence of coronary angioplasty implant and graft; Z85.46 Personal history of malignant neoplasm of prostate
CPT/HCPCS: 70450; 80048; 80053; 80061; 81003; 81015; 82962; 83036; 84443; 84484; 85025; 87077; 87086; 87147; 87186; 93005; 93306; 97116; 97162; 97167; 97530; 99285

== ENCOUNTER 2024-10-19 23:48 | Observation (INO) | payer OTHER, SELFPAY ==
[2024-10-19 19:40] VITALS: BP 173/66
[2024-10-19 19:41] VITALS: BP 173/66
[2024-10-19 19:52] LABS: % Basophils 0.2 % (0-2); % Eosinophils 1.5 % (0-6); % Immature Granulocytes 0.3 % (0-0.5); % Lymphocytes 18.6 % (20.5-51.1); % Monocytes 6.5 % (1.7-9.3); % Neutrophils 72.9 % (42.2-75.2); Absolute Eosinophils 0.1 10^3/uL (0-0.7); Absolute Lymphocytes 1.1 10^3/uL (1.2-3.4); Absolute Monocytes 0.4 10^3/uL (0.1-0.6); Absolute Neutrophils 4.3 10^3/uL (1.4-6.5); Hematocrit 35.2 % (39.0-52.0); Hemoglobin 12.5 g/dL (13.0-18.0); Mean Corp Hgb Conc. 35.5 g/dL (33.0-37.0); Mean Corpuscular Hgb 33.2 pg (27.0-31.0); Mean Corpuscular Volume 93.4 fL (80.0-94.0); Mean Platelet Volume 10.5 fL (7.4-10.4); Nucleated Red Blood Cells % 0 % (-); Platelet Count 164 10^3/uL (130-400); Red Blood Cell Count 3.77 10^6/uL (4.70-6.10); Red Cell Dist. Width 12.6 % (11.5-14.5); White Blood Cell Count 5.9 10^3/uL (4.8-10.8)
--- NOTE | 2024-10-19 19:52 | ED.GENMED ---
History of Present Illness
<ADILSON Sparks - Last Filed: 10/19/24 22:57>
General
Chief Complaint: Failure to Thrive
Source: patient
Exam Limitations: none
Time Seen by Provider: 10/19/24 19:40
History of Present Illness
History of Present Illness:
This is a 83 year old male that comes in by ambulance with c/o fall. Patent states that sometimes he just falls. States that counting this fall he has fallen 4 times today. States that his doesn't even try to get him up. Patient has no
complaints. States that she just did not wait long enough to let him try and get up off the floor. Denies any fever, chills, chest pain, SOB, abd pain, nausea, vomiting, diarrhea, headache, dizziness, urinary burning.
Past History
<ADILSON Sparks - Last Filed: 10/19/24 22:57>
Past History
ED Past Medical History: CAD, Cancer (Prostate CA), HTN, Hypercholesterolemia, IDDM and Other (Back pain, Slight Dementia but able to answer questions)
ED Past Surgical History: Appendectomy, Cardiac (Stents X 2), Orthopedic (Laminectomy, Right Menisectomy, Spinal fusion, revision or spinal incision X 2) and Urological (TURP)
Social History
Tobacco: Non-smoker
Alcohol: None
Drug: None
Personal:
Living: with family
Employment: Retired
Family History
Family History: Other (Noncontributory)
Review of Systems
<ADILSON Sparks - Last Filed: 10/19/24 22:57>
Review of Systems
All Other Systems: ROS reviewed and negative except as documented in HPI and ROS
Constitutional: Reports no symptoms; Denies fever or chills
EENT: Reports no symptoms
Respiratory: Reports no symptoms; Denies cough or trouble breathing
Cardiac: Reports no symptoms; Denies chest pain
ABD/GI: Reports no symptoms; Denies abdominal pain, nausea, vomiting or diarrhea
: Reports no symptoms; Denies dysuria, frequency or urgency
Musculoskeletal: Reports no symptoms
Skin: Reports no symptoms
Neurological: Reports no symptoms; Denies dizzy or headache
Psychiatric: Reports no symptoms
Phy Exam
<ADILSON Sparks - Last Filed: 10/19/24 22:57>
General Physical Exam
General Presentation: well appearing and no apparent distress
General age: appears stated age
General Skin: warm and dry
General Habitus: elderly
General Mental: usual mental status
General Hydration: dry mucous membranes
ENT Exam
ENT Exam: TM's normal, pharynx normal and neck supple
Eye Exam
Eye Exam: EOMI
Cardiovascular Exam
Cardiovascular Exam: regular rate/rhythm, no edema and normal peripheral pulses
Pulmonary Exam
Pulmonary Exam: lungs clear, no respiratory distress, no rales, chest non tender, no crackles, no rhonchi, no wheezing and no cough
Gastrointestinal Exam
Gastrointestinal Exam: normal bowel sounds, non tender, soft, no pulsatile mass and non distended
Musculoskeletal Exam
Musculoskeletal Exam: full ROM, no edema and other (Negative for cervical neck tenderness, Negative discomfort with flexion of the knee's inversion eversion)
Skin Exam
Skin Exam: normal color, warm/dry, no rash, no petechia and other (Old superficial abraion on the left lower leg, Negative for any redness or drainage)
Psychiatric Exam
Psychiatric Exam: normal mood/affect
Course
<ADILSON Sparks - Last Filed: 10/19/24 22:57>
Orders/Labs/Results
Orders:
Orders
10/19/24 19:43
Complete Blood Count/With Diff Urgent
Comprehensive Metabolic Panel Urgent
10/19/24 19:51
CT Head W/o Iv Contrast Urgent
Comment:
Reason For Exam: Fall's
0.9% Sodium Chloride 1000 ml [Nss] 1,000 ml IV BOLUS
10/19/24 20:10
Urinalysis Reflex To Culture Urgent
Date Specimen was Collected: 10/19/24
Time Specimen was Collected: 20:03
10/19/24 20:29
Electrocardiogram (*1) Urgent
Reason for Study: Other
Other Reason for Exam: frequent falls
EKG- Treatment ONCE
10/19/24 21:25
Troponin I Urgent
10/19/24 22:28
Case Management Consult ONCE
Case Management Consult: Discharge Planning
Pt Eval And Treat Routine
Activity Level: With Assistance
10/19/24 23:00
Flush (0.9% Sodium Chloride) [Flush (Nss)] See Dose Instructions IV PER PROTOCOL
10/19/24 23:59
Troponin I Urgent
Abnormal Lab Results
10/19/24 10/19/24 10/19/24
19:43 20:10 21:25
RBC 3.77 L 10^6/uL
(4.70-6.10)
Hgb 12.5 L g/dL
(13.0-18.0)
Hct 35.2 L %
(39.0-52.0)
MCH 33.2 H pg
(27.0-31.0)
MPV 10.5 H fL
(7.4-10.4)
Absolute Lymphs (auto) 1.1 L 10^3/uL
(1.2-3.4)
Lymphocytes % 18.6 L %
(20.5-51.1)
BUN 21 H mg/dl
(9-20)
Glucose 235 H mg/dl
(70-99)
Troponin I 0.072 H* ng/ml
Total Protein 5.9 L g/dl
(6.3-8.2)
Albumin 3.4 L g/dl
(3.5-5.0)
Urine Urobilinogen 2+ A
(Neg - 1+)
Urine Glucose 1+ A
(Negative)
10/19/24 19:43
10/19/24 19:43
H/H slightly low. Dehydration. Hyperglycemia. Total protein low, Troponin 0.072, Urine negative for infection.
Vital Signs
Initial and Last Documented VS:
Initial Vital Signs
BP
173/66
10/19/24 19:40
Last Documented Vital Signs
Temp Pulse Resp BP Pulse Ox
97.9 F 74 19 168/71 95
10/19/24 19:41 10/19/24 22:45 10/19/24 21:45 10/19/24 22:00 10/19/24 22:45
<Dinh Lopez MD - Last Filed: 10/19/24 22:29>
Orders/Labs/Results
Orders:
Orders
10/19/24 19:43
Complete Blood Count/With Diff Urgent
Comprehensive Metabolic Panel Urgent
10/19/24 19:51
CT Head W/o Iv Contrast Urgent
Comment:
Reason For Exam: Fall's
0.9% Sodium Chloride 1000 ml [Nss] 1,000 ml IV BOLUS
10/19/24 20:10
Urinalysis Reflex To Culture Urgent
Date Specimen was Collected: 10/19/24
Time Specimen was Collected: 20:03
10/19/24 20:29
Electrocardiogram (*1) Urgent
Reason for Study: Other
Other Reason for Exam: frequent falls
EKG- Treatment ONCE
10/19/24 21:25
Troponin I Urgent
10/19/24 22:28
Case Management Consult ONCE
Case Management Consult: Discharge Planning
Pt Eval And Treat Routine
Activity Level: With Assistance
10/19/24 23:00
Flush (0.9% Sodium Chloride) [Flush (Nss)] See Dose Instructions IV PER PROTOCOL
10/19/24 23:59
Troponin I Urgent
Abnormal Lab Results
10/19/24 10/19/24 10/19/24
19:43 20:10 21:25
RBC 3.77 L 10^6/uL
(4.70-6.10)
Hgb 12.5 L g/dL
(13.0-18.0)
Hct 35.2 L %
(39.0-52.0)
MCH 33.2 H pg
(27.0-31.0)
MPV 10.5 H fL
(7.4-10.4)
Absolute Lymphs (auto) 1.1 L 10^3/uL
(1.2-3.4)
Lymphocytes % 18.6 L %
(20.5-51.1)
BUN 21 H mg/dl
(9-20)
Glucose 235 H mg/dl
(70-99)
Troponin I 0.072 H* ng/ml
Total Protein 5.9 L g/dl
(6.3-8.2)
Albumin 3.4 L g/dl
(3.5-5.0)
Urine Urobilinogen 2+ A
(Neg - 1+)
Urine Glucose 1+ A
(Negative)
10/19/24 19:43
10/19/24 19:43
Vital Signs
Initial and Last Documented VS:
Initial Vital Signs
BP
173/66
10/19/24 19:40
Last Documented Vital Signs
Temp Pulse Resp BP Pulse Ox
97.9 F 74 19 168/71 95
10/19/24 19:41 10/19/24 22:45 10/19/24 21:45 10/19/24 22:00 10/19/24 22:45
<ADILSON Sparks - Last Filed: 10/19/24 22:57>
MDM/Problems Addressed
Differential Diagnosis Includes:
Failure to thrive, Weakness, Balance issues
MDM/Problems Addressed:
This is a 83 year old male that comes in by ambulance with c/o falls. States that he has fallen 4 times today. States that his did not give him a change to get up. States that they called the ambulance 4 times today and this last time they
brought him in.
Will check labs, CT head, Urine, ECG. Explained to patient that if he has fallen 4 times today he will most likely need to stay as the ambulance can't keep coming to pick him up. Will plan on admission.
Chronic conditions affecting care:
Balance issues
Acute Exacerbation and/or Progression of Chronic Illness:
Balance issues
<ADILSON Sparks - Last Filed: 10/19/24 22:57>
*Radiology
Radiology exam reviewed: radiology read reviewed (CT head-NO CT evidence for acute intracranial hemorrhage. Moderate bilateral temporal lobe volume loss suggesting a chronic neurodegenerative disease (possible Alzheimer's dementia). Moderate
cerebellar volume loss. Moderate to severe diffuse distention of the ventricular system which appears ) and all reviewed NAD by ED Provider (CT head cont- appears unchanged. Diagnostic possibilities are (1) normal pressure communicating
hydrocephalus or (2) ex vacuo ventricular dilation. Moderate periventricular white matter leukoaraiosis. )
*Pulse Oximetry
Patient hypoxic: no
*EKG
Interpreted by ED Provider?: Yes
Heart Rate: 68
Rate: normal
Rhythm: sinus
Jewell: left axis deviation
Interval: normal interval
QRS Pattern: right bundle branch block
Ischemia: no ischemia
*Real Estate Photographer Interpretation
Rate: normal
Heart Rate: 68
Rhythm: sinus
*Critical Care Note
Total Time (30-74mins, 75-104mins- exclusive of procedures): Not Applicable
ED Attending Note
<ADILSON Sparks - Last Filed: 10/19/24 22:57>
-
Portions of this chart may have been created with voice recognition software.� Occasional wrong word or��sound alike� substitutions may have occurred due to the inherent limitations of voice recognition software.
<Dinh Lopez MD - Last Filed: 10/19/24 22:29>
ED Attending Note
Patient seen and examined by attending physician: Yes
ED Attending Note:
I have seen and evaluated the patient with a [id number] encounter. I have spoken to the advance practicer provider and involved in the medical history, the physical exam, medical decision making.
Evaluation and management service: agree unless noted differently below.
Results interpretation: agree unless noted differently below.
Focused HPI: 83-year-old male presents to the emergency room for evaluation after a minor fall. He says that he lost his balance fell down but says he did not sustain any serious injuries. He is not sure whether he hit his head but denies any
headache, neck pain, back pain, chest pain, abdominal pain. Denies any pain in his extremities. He says that his called the ambulance and he did not want a come to the hospital but they brought him in to be evaluated. According to EMS report
was concerned for worsening generalized weakness/ambulatory dysfunction.
Physical exam: Awake alert and oriented here although he has a document history of dementia. Hypertensive in triage normalized by my assessment rest of vitals normal. He has no signs of trauma to the head. No tenderness in the cervical, thoracic
or lumbar spine and no signs of trauma to the back or flank. No chest wall or rib tenderness. No abdominal tenderness. No tenderness to the extremities and moves them all through comfortable range of motion.
Medical Decision Makin-year-old male presents after minor fall, reportedly having increased generalized weakness and ambulatory dysfunction. He denies any serious injuries and says he feels generally well. Labs sent off including a CBC and a
CMP no clinically significant abnormalities�random glucose 235 in the setting of known diabetes. EKG shows sinus rhythm with right bundle branch block; troponin marginally elevated. Urinalysis no infection. CT head negative for any acute
pathology. Admit for trending of troponin, PT eval, and case management consultation.
Discharge Plan
Departure
Patient Disposition: Admit
Date of Disposition: 10/19/24
Time of Disposition: 21:53
Admit to: Med/Surg
Presentation/result/management discussed w/ accepting MD/DO: Hospitalist
Patient with high blood pressure during this ER visit?: Yes
Condition: Good
Covid-19: Not Applicable
Discharge Problem:
Frequent falls, Adult failure to thrive, Elevated troponin
Prescriptions:
No Action
glimepiride 2 MG tablet
2 mg PO DAILY
rosuvastatin 10 MG tablet
10 mg PO QPM
metoprolol tartrate 25 MG tablet
25 mg PO DAILY
insulin glargine [Lantus Solostar U-100 Insulin] 300 UNITS/3 ML insulin pen
15 units SC HS
acetaminophen [Tylenol Extra Strength] 500 MG tablet
1,000 mg PO Q6H PRN (Reason: Pain)
Rx Instructions:
Do not exceed >4000 mg daily.
docusate sodium 100 MG capsule
100 mg PO BID
cyanocobalamin (vitamin B-12) 500 mcg Tablet
cephalexin 500 mg capsule
500 mg PO QID 5 Days Qty: 20 0RF
metformin 500 MG tablet
500 mg PO 0800,1700 Qty: 0 0RF
Patient Comments:
per patients he was only taking it once a day
clopidogrel 75 MG tablet
75 mg PO DAILY Qty: 30 0RF
aspirin 81 MG tablet,delayed release (/EC)
81 mg PO DAILY Qty: 30 0RF
nifedipine 60 MG tablet extended release 24hr
60 mg PO DAILY Qty: 30 0RF
Referrals:
UNKNOWN - PT DOES,NOT KNOW [Family Provider] -
Interventions
Interventions:
*Risk Screen - Suicide Last Done: 10/19/24 19:41
*General Assessment Last Done: 10/19/24 19:41
*Neglect/Abuse Screening Last Done: 10/19/24 19:41
*ED COVID-19 Vaccine History Last Done: 10/19/24 19:41
Discharge Date and Time
Print Language: CROATIAN
[2024-10-19 20:00] VITALS: BP 146/63
[2024-10-19 20:06] LABS: ALT (SGPT) 18 U/L (0-50); AST (SGOT) 25 U/L (17-59); Albumin 3.4 g/dl (3.5-5.0); Alkaline Phosphatase 99 U/L (38-126); Blood Urea Nitrogen 21 mg/dl (9-20); Calcium 8.4 mg/dl (8.4-10.2); Carbon Dioxide 27 mmol/L (22-30); Chloride 98 mmol/L (98-107); Glucose 235 mg/dl (70-99); Potassium 4.6 mmol/L (3.5-5.1); Sodium 135 mmol/L (135-145); Total Bilirubin 1.1 mg/dl (0.2-1.3); Total Protein 5.9 g/dl (6.3-8.2); eGFR 54.51
[2024-10-19] MEDS: NSS 1000 IV (20:09)
[2024-10-19 21:59] LABS: Troponin I 0.072 ng/ml
[2024-10-19 22:00] VITALS: BP 168/71
[2024-10-19 22:11] LABS: Urine Albumin Trace (Neg - Trace); Urine Bilirubin Negative (Negative); Urine Character Clear (Clear); Urine Color Yellow; Urine Glucose 1+ (Negative); Urine Ketone Negative (Negative); Urine Leukocyte Negative (Negative); Urine Nitrite Negative (Negative); Urine Occult Blood Negative (Negative); Urine Urobilinogen 2+ (Neg - 1+)
--- NOTE | 2024-10-19 22:23 | HPS.HSE ---
Family Physician
-
Family Physician: NOT KNOW UNKNOWN - PT DOES
Chief Complaint
-
Fall x 4 today
History of Present Illness
83-year-old male from home, where he lives with his who called EMS due to her falling 4 times today. The patient reported his does not even try to get him up, however the patient's is unable to lift the patient up off of the
floor. The patient had expressed frustration to EMS that she did not wait long enough to let him try to get himself up off of the floor. He does have history of dementia he states short-term. He reports that he wants to go to a [facility] with
his but she does not want to go. He states he has some mild buttocks pain from falling but denies any abrasions, rug ponce, joint pain, headache, neck pain, chest pain, palpitations, shortness breath, cough, abdominal pain, nausea, vomiting,
diarrhea, urinary symptoms. He states he normally uses a walker throughout the house, but so does his . I advised the patient we will have physical therapy meet with him in the a.m. to see how he walks and see if he needs some adjustments with
his walker or perhaps a different type. He seemed pleased at the time with that plan
The patient had a recent admission 09/25 - 09/28/2024 secondary to medication noncompliance and was found to have elevated troponin. Cardiology recommended he be restarted on aspirin, Plavix, statin and beta-suma. He was also found to have
polymicrobial UTI was started on ceftriaxone with transition to oral antibiotics on discharge Keflex 500 4 times daily x 5 additional days. It appears he might have been discharged to a group home facility then to home with his . His care
was discussed with his per discharge instructions on 09/28/2024 per chart
He has a past medical history chronic nonischemic AL injury, CAD status post PCI/stents x 2, bifascicular block, echo September 27, 2024: EF 45-50%, global hypokinesis, mild LVH, mild aortic regurg, TME, dementia, noncompliance with medication,
polymicrobial UTIs, prostate CA,/TURP, mechanical falls, chronic ambulatory dysfunction, IDDM, CKD stage III, primary HTN, gout, BPH, HLD
Medical History
Past Medical History
Past Medical History: Reports Other
Additional Past Medical History:
Chronic nonischemic AL injury
CAD status post PCI/stents x 2
Bifascicular block
Echo September 27, 2024: EF 45-50%, global hypokinesis, mild LVH, mild aortic regurg
TME
Dementia
Noncompliance with medication
Chronic ambulatory dysfunction
Multiple mechanical falls
Polymicrobial UTIs
Prostate CA/TURP
Gout
IDDM
CKD stage III
Primary HTN
Gout
BPH
HLD
Past Surgical History: Reports Other
Additional Past Surgical History:
Prostatectomy
Appendectomy
PTCA with Stents (multiple)
Cardiac stents x 2
Laminectomy
Right meniscus repair
Spinal fusion with revision
TURP
Social History
Tobacco: Non-smoker
Alcohol: Occasional
Drug: None
Personal:
Living: With Family ( )
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
Family History
Family History: Not pertinent
Allergies / Home Medications
Allergies reflects when Allergies were last updated in [facility].
Home Medications with original date entered in [facility]
Allergy/Medication List:
Allergies
Allergy/AdvReac Type Severity Reaction Status Date / Time
No Known Allergies Allergy Verified 04/11/24 19:12
Home Medications
glimepiride 2 mg tablet 2 mg PO DAILY Diabetes 09/05/20
insulin glargine 100 unit/mL (3 mL) subcutaneous pen (Lantus Solostar U-100 Insulin) 15 units SC HS Diabetes 09/05/20
metoprolol tartrate 25 mg tablet 25 mg PO DAILY Blood pressure 09/05/20
rosuvastatin 10 mg tablet 10 mg PO QPM High cholesterol 09/05/20
acetaminophen 500 mg tablet (Tylenol Extra Strength) 1,000 mg PO Q6H PRN Pain 09/26/24
docusate sodium 100 mg capsule 100 mg PO BID STOOL SOFTENER 09/26/24
cyanocobalamin (vitamin B-12) 500 mcg tablet 09/27/24
aspirin 81 mg tablet,delayed release 81 mg PO DAILY #30 tabs 09/28/24
clopidogrel 75 mg tablet 75 mg PO DAILY #30 tabs 09/28/24
metformin 500 mg tablet 500 mg PO 0800,1700 Diabetes #0 tabs 09/28/24
nifedipine 60 mg tablet,extended release 24 hr 60 mg PO DAILY Heart Disease/Condition #30 tabs 09/28/24
Review of Systems
-
History Source: Patient and Other (ER record)
A 12 point ROS was completed and negative except as noted: Yes
Constitutional: Denies Fever, Fatigue or Chills
EENT: Denies Sore Throat or Runny Nose
Respiratory: Denies Cough or Trouble Breathing
Cardiac: Denies Chest Pain, Diaphoresis, Palpitations, Syncope or Other
Abdomen/GI: Denies Abdominal Pain, Nausea, Vomiting, Diarrhea, Constipated, Bloody Stools or Black Stools
: Denies Dysuria, Frequency, Flank Pain, Incontinence, Difficulty Voiding or Urgency
Musculoskeletal: Denies Joint Pain or Edema
Skin: Reports Other (Buttocks pain after fall x 4); Denies Itching or Rash
Neurological: Denies Dizzy, Headache or Weakness
Endocrine: Reports No Symptoms
Hematologic/Lymphatic: Reports No Symptoms
Psych: Reports Calm
Physical Exam
Vital Signs
Vital Signs
Temp Pulse Resp BP Pulse Ox
97.9 F 70 15 146/63 100
10/19/24 19:41 10/19/24 21:30 10/19/24 21:30 10/19/24 20:00 10/19/24 21:30
Physical Exam
General: Comfortable and Conversant; No Fever or Chills
HEENT: NormoCephalic, Anicteric, Moist mucous membranes, Atraumatic, PERRLA, [place] Conjunctivae, No Ptosis, Nose Appears Normal and Neck Nontender
Respiratory: Clear; No Wheezes, Rales, Rhonchi or Crackles
Cardiac: S1/S2 and Regular Rhythm; No Murmur, Rub, Gallop or Peripheral Edema
Breast: Deferred by me
GI: Soft, Non Tender, Non Distended, Normal Bowel Sounds and No Hepatosplenomegaly
Rectal: Deferred by Provider
Genito-urinary: Deferred by me
Musculoskeletal: No Clubbing, No Cyanosis, No Edema and Other (No joint pain appreciated on entire body, no skin tears or bruises)
Skin: Warm and Dry; No Rash
Neuro: Awake, Alert, Oriented (To first and last name, [place], president Susana, age but not some of history due to dementia and his short-term memory impairment he states), No Motor Deficits (While in bed), Cranial Nerves Intact and No Sensory
Deficits; No Slurred Speech, Facial Droop, Tremors or Sedated
Psych: Calm
Laboratory Results
-
10/19/24 19:43
10/19/24 19:43
Laboratory Results
Total Bilirubin 1.1 mg/dl (0.2-1.3) 10/19/24 19:43
AST 25 U/L (17-59) 10/19/24 19:43
ALT 18 U/L (0-50) 10/19/24 19:43
Alkaline Phosphatase 99 U/L (38-126) 10/19/24 19:43
Troponin I 0.072 ng/ml H* 10/19/24 21:25
Data Reviewed
-
CT Scan: Report Reviewed by me
Lab Data: Labs Reviewed by me
Impression/Plan
-
Impression/plan:
Observation TELE
#Recurrent mechanical falls x 4 today
#Chronic ambulatory dysfunction uses walker at baseline per patient
-Consult PT/OT/case management for SNF
-Check orthostatics
CT head:
1. No CT evidence of acute intracranial hemorrhage
2. Moderate bilateral temporal lobe volume loss suggesting a chronic neurodegenerative disease (possibly Alzheimer's dementia).
3. Moderate cerebellar volume loss.
4. Moderate to severe diffuse distention of the ventricular system which appears unchanged. Diagnostic possibilities are (1) normal pressure communicating hydrocephalus or (2) ex vacuo ventricular dilatation.
5. Moderate periventricular white matter leukoaraiosis.
#HTN�benign
BP 140/67
-- Check orthostatic vitals
-Continue metoprolol tartrate 25 mg daily, nifedipine 60 mg extended release with hold parameters
#Chronic nonischemic myocardial injury
#CAD status post PCI/stents x 2
#bifascicular block
Troponin 0.072 <0.540 on 09/25/2024
-Continue aspirin 81 mg daily, Plavix 75 mg daily,,Crestor 10 mg every afternoon, metoprolol tartrate 25 mg daily with hold parameters
2D echo September 27, 2024: EF 45-50%, global hypokinesis, mild LVH, mild aortic regurg
#Dementia�mild-moderate
-Patient oriented to name, place, current president, age, some of history but not short-term memory which he admits
#Hx noncompliance with medication
#Polymicrobial UTIs
-Patient denies urinary symptoms
#Prostate CA,/TURP
#BPH
-Bladder scan protocol
-Monitor output as patient's Flomax was DC'd on 09/28/2024
#DM2
Accu-Cheks with SSI
-Continue glimepiride 2 mg daily, metformin 500 mg 08,1700(according to list DC patient's stated he was only taking it once a day on last admit)
-Continue Lantus 15 units subcu at bedtime
#CKD stage IIIB
Creat 1.3-appears near baseline
-Follow BMP
#Gout
-Patient's allopurinol 100 mg Friday was DC'd 09/28/2024
#HLD
-Continue Crestor 10 mg every afternoon
DVT prophylaxis
SCDs
DNR per patient states 'if I let me go I do not want a ventilator or compressions, this CODE STATUS was compared to his admission on 09/25/2024 which also stated DNR
[2024-10-19 23:00] VITALS: BP 140/67
--- NOTE | 2024-10-19 23:06 | W.PN.UPDATE ---
Update Note
Progress Note Update
Attending addendum
Patient seen independently
83-year-old man fell at home 4 times today. His did not try to get him up, as she is unable to lift the patient up off of the floor. He does have history of dementia. He stated to me he had a similar episode in the past that required
inpatient rehab. He was incontinent of urine during my exam.
Per record review, he had a recent mission 09/25 - 09/28/2024 secondary to medication noncompliance and was found to have elevated troponin. Cardiology recommended he be restarted on aspirin, Plavix, statin and beta-suma. He was also found to
have polymicrobial UTI was started on ceftriaxone with transition to oral antibiotics on discharge Keflex 500 4 times daily x 5 additional days. It appears he might have been discharged to a shelter facility then to home with his . His
care was discussed with his per discharge instructions on 09/28/2024 per chart. Ed workup showed:
CT head:
1. No CT evidence of acute intracranial hemorrhage
2. Moderate bilateral temporal lobe volume loss suggesting a chronic neurodegenerative disease (possibly Alzheimer's dementia).
3. Moderate cerebellar volume loss.
4. Moderate to severe diffuse distention of the ventricular system which appears unchanged. Diagnostic possibilities are (1) normal pressure communicating hydrocephalus or (2) ex vacuo ventricular dilatation.
5. Moderate periventricular white matter leukoaraiosis.
Chronic nonischemic myocardial injury
Troponin 0.072 <0.540 on 09/25/2024
Past Medical History
Chronic nonischemic LA injury
CAD status post PCI/stents x 2
Bifascicular block
Echo September 27, 2024: EF 45-50%, global hypokinesis, mild LVH, mild aortic regurg
TME
Dementia
Noncompliance with medication
Chronic ambulatory dysfunction
Multiple mechanical falls
Polymicrobial UTIs
Prostate CA/TURP
Gout
IDDM
CKD stage III
Primary HTN
Gout
BPH
HLD
Prostatectomy
Appendectomy
PTCA with Stents (multiple)
Cardiac stents x 2
Laminectomy
Right meniscus repair
Spinal fusion with revision
TURP
Impression/Plan
1. 83 man with dementia and multiple falls and failure to thrive
No obvious lab or exam findings to explain these events
PT eval in am
Likely needs placement in acute rehab.
Please see WEIGHER B[facility] note for full details on continued treatment of his chronic PMH issues.
VCD for DVTp
[2024-10-20] VITALS (11 sets, daily range): BP systolic 112–168; BP diastolic 49–73; PULSE 60–87; O2SAT 99; BMI 24.9; BMI 24.4
--- NOTE | 2024-10-20 00:41 | PTCARENOTE ---
Pt arrived onto floor @0041. Pt AAOx3 and a sinker puller to the bed. Pt with no complaints of pain or SOB at this time. Pt oriented to room and call muse; will continue to monitor
[2024-10-20 00:51] LABS: Troponin I 0.079 ng/ml
--- NOTE | 2024-10-20 02:32 | DOWNTIME ---
There was a [employer] Client Desk Reporter Downtime on 10/20/2024 from 0100 to 10/20/2023 at 0205 . Downtime documentation of patient's care, including medication administrations, has been reconciled in the electronic record per guidelines. Refer to the
patient's paper chart under the miscellaneous tab to see printed paper medication records and downtime forms.
[2024-10-20 07:57] LABS: % Basophils 0.2 % (0-2); % Eosinophils 1.3 % (0-6); % Immature Granulocytes 0.2 % (0-0.5); % Monocytes 8.1 % (1.7-9.3); % Neutrophils 66.2 % (42.2-75.2); Absolute Eosinophils 0.1 10^3/uL (0-0.7); Absolute Lymphocytes 1.1 10^3/uL (1.2-3.4); Absolute Monocytes 0.4 10^3/uL (0.1-0.6); Absolute Neutrophils 3.1 10^3/uL (1.4-6.5); Hematocrit 33.8 % (39.0-52.0); Mean Corp Hgb Conc. 35.5 g/dL (33.0-37.0); Mean Corpuscular Volume 92.9 fL (80.0-94.0); Mean Platelet Volume 10.4 fL (7.4-10.4); Nucleated Red Blood Cells % 0 % (-); Platelet Count 153 10^3/uL (130-400); Red Blood Cell Count 3.64 10^6/uL (4.70-6.10); Red Cell Dist. Width 12.4 % (11.5-14.5); White Blood Cell Count 4.7 10^3/uL (4.8-10.8)
[2024-10-20 08:02] LABS: Glucose - Point of Care 162 mg/dl (70-99)
[2024-10-20 08:22] LABS: ALT (SGPT) 16 U/L (0-50); AST (SGOT) 24 U/L (17-59); Albumin 3.1 g/dl (3.5-5.0); Alkaline Phosphatase 76 U/L (38-126); Blood Urea Nitrogen 18 mg/dl (9-20); Carbon Dioxide 32 mmol/L (22-30); Chloride 99 mmol/L (98-107); Estimated Creatinine Clearance 45 ml/min; Glucose 166 mg/dl (70-99); Potassium 4.1 mmol/L (3.5-5.1); Sodium 135 mmol/L (135-145); Total Bilirubin 1.2 mg/dl (0.2-1.3); Total Protein 5.5 g/dl (6.3-8.2); eGFR > 60.00
[2024-10-20] MEDS: NOVOLOG FLEXPEN-LOW RESISTANCE 1 UNITS SC (10:33)
[2024-10-20] MEDS: ASPIR LOW (ENTERIC COATED) 81 MG PO (10:35)
[2024-10-20] MEDS: PLAVIX 75 MG PO (10:35)
[2024-10-20] MEDS: LOPRESSOR 25 MG PO (10:35)
[2024-10-20] MEDS: PROCARDIA XL (EXTENDED RELEASE) 60 MG PO (10:35)
[2024-10-20] MEDS: AMARYL 2 MG PO (10:35)
[2024-10-20] MEDS: GLUCOPHAGE 500 MG PO ×2 (10:35→18:41)
[2024-10-20] MEDS: COLACE 100 MG PO (10:35)
[2024-10-20 11:59] LABS: Glucose - Point of Care 215 mg/dl (70-99)
[2024-10-20] MEDS: NOVOLOG FLEXPEN-LOW RESISTANCE 2 UNITS SC (13:06)
--- NOTE | 2024-10-20 13:10 | W.PN.HOSP.TC ---
Today's Communication/Plan
-
consider psych consult
PT/OT rec SNF--pt does not want to go
consider neuro consult
Assessment / Plan
Assessment / Plan
pt is an 83 year old male
Recurrent mechanical falls x 4 (day of admission)--pt reports 1 fall--PT/OT rec SNF--pt does not want to go back--thinks his does not want him at home, thinks she doesn't like him--says she lies--would consider psych consult for capacity
Chronic ambulatory dysfunction uses walker at baseline per patient--Consult PT/OT/case management for SNF--not orthostatic--could NPH be reason for falls?--consider LP with opening pressure--consider neuro consult
CT head:
1. No CT evidence of acute intracranial hemorrhage
2. Moderate bilateral temporal lobe volume loss suggesting a chronic neurodegenerative disease (possibly Alzheimer's dementia).
3. Moderate cerebellar volume loss.
4. Moderate to severe diffuse distention of the ventricular system which appears unchanged. Diagnostic possibilities are (1) normal pressure communicating hydrocephalus or (2) ex vacuo ventricular dilatation.
5. Moderate periventricular white matter leukoaraiosis.
Essential HTN--not orthostatic--Continue metoprolol tartrate 25 mg daily, nifedipine 60 mg extended release with hold parameters
Chronic nonischemic myocardial injury--CAD status post PCI/stents x 2--bifascicular block--troponin chronically elevated--Continue aspirin 81 mg daily, Plavix 75 mg daily,,Crestor 10 mg every afternoon, metoprolol tartrate 25 mg daily with hold
parameters--2D echo September 27, 2024: EF 45-50%, global hypokinesis, mild LVH, mild aortic regurg
Dementia (Hx noncompliance with medication)�mild-moderate--Patient oriented to name, place, current president, age, some of history but not short-term memory which he admits--may need psych for capacity
Polymicrobial UTIs--Patient denies urinary symptoms
Prostate CA,/TURP/BPH--Bladder scan protocol--Monitor output as patient's Flomax was DC'd on 09/28/2024
DM2--Accu-Cheks with SSI--Continue glimepiride 2 mg daily, metformin 500 mg 08,1700 (according to list DC patient's stated he was only taking it once a day on last admit)---Continue Lantus 15 units subcu at bedtime
CKD stage IIIB--Creat 1.3-appears near baseline-Follow BMP
Gout--Patient's allopurinol 100 mg Friday was DC'd 09/28/2024
HLD-Continue Crestor 10 mg every afternoon
DVT proph
code status --DNR
Anticipated Discharge: > 48 hours
Subjective/Interval History
-
Date of Service: October 20, 2024
pt fell (doesn't know how)--wants no part of going back to SNF
Objective Data
-
Labs:
Laboratory Results
10/20/24
07:29
WBC 4.7 L
Hgb 12.0 L
Hct 33.8 L
Plt Count 153
Sodium 135
Potassium 4.1
Chloride 99
Carbon Dioxide 32 H
BUN 18
Creatinine 1.2
Glucose 166 H
Calcium 8.0 L
Total Bilirubin 1.2
AST 24
ALT 16
Alkaline Phosphatase 76
Vital Signs:
max temp for 24 hours
10/20/24
00:41
Temp 98.7 F
Vital Signs
Temp Pulse Resp BP Pulse Ox
98.2 F 53 18 144/50 98
10/20/24 11:35 10/20/24 11:35 10/20/24 11:35 10/20/24 11:35 10/20/24 11:35
I&O
10/19/24 10/20/24 10/21/24
06:59 06:59 06:59
Intake Total 240 / 240
Output Total 200 / 200
Balance 40 / 40
Review of Systems
-
All other systems: Reviewed and negative
Physical Exam
-
General: Well Developed, Well Nourished and No Apparent Distress
HEENT: Normocephalic and Atraumatic
Respiratory: Clear to Auscultation; Negative Wheezes or Rhonchi
Cardiac: Regular Rhythm and S1/S2; Negative Murmur
GI: Soft, Nontender, Nondistended and Normal Bowel Sounds
Musculoskeletal: No Clubbing, No Cyanosis and No Edema
Neuro: Awake and Alert
--- NOTE | 2024-10-20 15:29 | CM ---
Addendum entered by Marilyn Esquivel 10/20/24 15:46:
Referrals sent via all scripts. CM reviewed OBS status with and she states that she does not have a computer. Patient requested OBS/VÁSQUEZ form be sent via regular mail.
Original Note:
Patient seen at bedside with physician. Patient stating that his is 'nasty and lies'. Patient with diagnosis of dementia. Patient was open to [facility] and per liaison patient had several LUISITO and a social media content specialist visit to home. Per [facility] liaison social media content specialist noted that patient was angry and agitated with in her visit yesterday. Patient indicated that she can't take care of patient and that he throws things, and curses her out frequently. Patient stated after last
EMT transfer police came to check on her due to concerns about patient safety. Patient indicated that she is asking for patient to be placed for LTC. Patient requesting [facility]. CM will continue to
follow for discharge planning needs.
Plan; placement SNF; pending psych assessment
--- NOTE | 2024-10-20 16:19 | CON.MD ---
Consultation - Medical
-
patient seen chart reviewed. spoke with nursing. patient is an 83 year old male who was admitted of a fall. he had fallen four times that day. his is physically unable to pick him up off the floor so she called 911. he was here in late
august and was discharged to [facility] after that hospitalization . he admits he has some difficulty with memory and medication non compliance likely contributed to that admit. he was found to have a uti at the time. he told me when i spoke
to him today that it is hard for him to remember to take his medications and to take them properly. he self administers meds despite this. he was noted to have cognitive impairment prior to admit and the PT and OT evals from this admission do
substantiate cognitive impairment. he was unable to tell me t he year '19 something...no 20 something...i don't work anymore so i don't pay attention to that'. he could not tell me this was a hospital and said we were in '[place]' after some
deliberation. he also thought it was october and 'friday or friday'. he denied depression. he denied anxiety. this consult was ordered as patient refusing to go to snf. he told me he did not like the last facility he was referred to (he did
not say '[facility]'.) he said they did not seem to help him with his problems....he just kept falling. i explained to him that this consult was ordered to decide whether he had the capacity to make medical decisions on his own behalf. he told
me he would be willing to go to snf but to another facility. he also told me that he believes he is being referred not so much of his medical issues but bc his wants to get rid of him. cm told me she spoke to and alleges his
behavior in the home can be inappropriate ie he throws things. he said he may thrown things 'but not at her.'
past psych hx denied
medical hx patient admitted due to falling. cat scan shows dilated ventricles and nph is mentioned as a possibility. there is temporal lobe and cerebellar volume loss. leukoaraiosis cr 1.2 hgb 12 glucose 166 ca 8 qtc 499 patient has hx cad
(stents) ascvd valvular disease htn hld dm prostate ca w turp spinal fusion w revision gout
fh 'not that i know of'
substance abuse does not smoke drink or use drugs in his younger years he drank in moderation
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
mse alert oriented only to person completely correctly. he did know [place] but could not do the date not even the year or '[place]' he was cooperative and given the situation fairly pleasant no psychosis clear cognitive impairment
mood is neutral affect ok no suicidal thoughts. insight and judgment likely impaired
dx patient is likely suffering from a dementia process
recommendations strictly speaking patient does have what i would consider as likely more than mild cognitive impairment . at this point he is agreeing to go to a snf facility as long as it is not [facility] and it is clear that he needs to work
on balance and physical strength and safety. would assess whether he has nph as the sx are incontinence (he was wearing a diaper but of course he has had turp and it could be unrelated) dementia (+) and ataxia (clearly balance and gait
dysfunction) would check b12 folate. tsh is normal. if he continues to refuse would talk to his son shanti whom i wanted to call but there is no number in the chart and patient did not know his phone number. perhaps son could convince him
to accept snf. cm has already spoke to and it is clear what her recommendation would be.
[2024-10-20 17:41] LABS: Glucose - Point of Care 147 mg/dl (70-99)
[2024-10-20] MEDS: NOVOLOG FLEXPEN-LOW RESISTANCE SC (18:39)
[2024-10-20] MEDS: CRESTOR 10 MG PO (18:41)
[2024-10-20] MEDS: COLACE PO (20:45)
[2024-10-20 21:15] LABS: Glucose - Point of Care 112 mg/dl (70-99)
[2024-10-20] MEDS: LANTUS 0.15 UNITS SC (21:17)
[2024-10-21 02:56] VITALS: BP 140/56
[2024-10-21 05:57] VITALS: BMI 23.8
[2024-10-21 07:30] LABS: Glucose - Point of Care 66 mg/dl (70-99)
[2024-10-21 07:48] LABS: Glucose - Point of Care 66 mg/dl (70-99)
[2024-10-21 08:08] LABS: Hematocrit 35.6 % (39.0-52.0); Hemoglobin 12.4 g/dL (13.0-18.0); Mean Corp Hgb Conc. 34.8 g/dL (33.0-37.0); Mean Corpuscular Hgb 32.6 pg (27.0-31.0); Mean Corpuscular Volume 93.7 fL (80.0-94.0); Mean Platelet Volume 10.5 fL (7.4-10.4); Platelet Count 167 10^3/uL (130-400); Red Cell Dist. Width 12.5 % (11.5-14.5); White Blood Cell Count 5.1 10^3/uL (4.8-10.8)
[2024-10-21 08:11] LABS: Glucose - Point of Care 84 mg/dl (70-99)
[2024-10-21 08:27] VITALS: BP 142/59
[2024-10-21 08:36] LABS: Blood Urea Nitrogen 23 mg/dl (9-20); Calcium 8.1 mg/dl (8.4-10.2); Carbon Dioxide 31 mmol/L (22-30); Chloride 99 mmol/L (98-107); Estimated Creatinine Clearance 45 ml/min; Glucose 52 mg/dl (70-99); Magnesium 2.1 mg/dl (1.6-2.3); Potassium 3.4 mmol/L (3.5-5.1); Sodium 135 mmol/L (135-145); eGFR > 60.00
[2024-10-21] MEDS: NOVOLOG FLEXPEN-LOW RESISTANCE SC ×2 (08:45→12:12)
--- NOTE | 2024-10-21 08:52 | W.PN.HOSP.TC ---
Today's Communication/Plan
-
see bold
Assessment / Plan
Assessment / Plan
Gen: NAD, AAOx2.
Eyes: EOMI, PERRLA, no scleral icterus.
Neck: supple.
CV: RRR, +S1/S2, no m/r/g.
Resp: CTAB, no rales, wheezes, or rhonchi.
Abd: +BS, soft, NT, ND
Skin: No rashes.
Neuro: CN 2-12 intact, non-focal.
Psych: Normal mood and affect.
CT brain:
1. No CT evidence for acute intracranial hemorrhage.
2. Moderate bilateral temporal lobe volume loss suggesting a chronic neurodegenerative disease (possibly Alzheimer's dementia).
3. Moderate cerebellar volume loss.
4. Moderate to severe diffuse distention of the ventricular system which appears unchanged. Diagnostic possibilities are (1) normal pressure communicating hydrocephalus or (2) ex vacuo ventricular dilatation.
5. Moderate periventricular white matter leukoaraiosis.
Recurrent falls/ambulatory dysfunction:
-PT/OT
-note, NPH can be worked up and managed in the outpt setting
-orthostatic VS unremarkable
Dementia, likely Alzheimer's type:
-Appreciate psychiatry
-had been noncompliant with meds
DM2:
-AccuCheck/SSI
-Stop Metformin/Glimepiride, decrease Lantus to 10U with hypoglycemia.
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
Other problems:
Hypokalemia: 40meq K
Essential HTN: cont BB/CCB
CAD s/p stents x 2: cont ASA/plavix/BB/statin
Chronic HFmrEF: cont BB
Prostate CA with h/o TURP: Flomax was stopped on 09/28/24
CKD3b
Gout: Allopurinol was stopped 09/28/24
HLD: cont statin
Heparin/DNR
Total time spent on today's encounter was 50 minutes which included time spent in counseling the patient/family regarding diagnosis and treatment plan as listed above, goals of care, and symptom management. Case was discussed with nursing staff,
specialists, and care coordinators/case management. All labs and imaging personally reviewed by me. Remainder the time spent in detailed review of previous records, lab data, imaging, and other medical provider documentation.
Anticipated Discharge: Within 24 hours
Subjective/Interval History
-
Date of Service: October 21, 2024
No new complaints.
Objective Data
-
Labs:
Laboratory Results
10/21/24
06:53
WBC 5.1
Hgb 12.4 L
Hct 35.6 L
Plt Count 167
Sodium 135
Potassium 3.4 L
Chloride 99
Carbon Dioxide 31 H
BUN 23 H
Creatinine 1.2
Glucose 52 L*
Calcium 8.1 L
Vital Signs:
Vital Signs
Temp Pulse Resp BP Pulse Ox
97.8 F 69 16 142/59 95
10/21/24 08:27 10/21/24 08:27 10/21/24 08:27 10/21/24 08:27 10/21/24 08:27
I&O
10/20/24 10/21/24 10/22/24
06:59 06:59 06:59
Intake Total 240 / 240 480 / 480
Output Total 200 / 200 200 / 200
Balance 40 / 40 280 / 280
[2024-10-21] MEDS: GLUCOPHAGE PO (09:07)
[2024-10-21] MEDS: AMARYL PO (09:07)
[2024-10-21] MEDS: PROCARDIA XL (EXTENDED RELEASE) 60 MG PO (09:15)
[2024-10-21] MEDS: PLAVIX 75 MG PO (09:15)
[2024-10-21] MEDS: LOPRESSOR 25 MG PO (09:15)
[2024-10-21] MEDS: ASPIR LOW (ENTERIC COATED) 81 MG PO (09:15)
[2024-10-21] MEDS: KCL 40 MEQ PO (09:15)
[2024-10-21] MEDS: COLACE 100 MG PO (09:16)
[2024-10-21] MEDS: HEPARIN 5000 UNITS SC ×2 (09:39→19:29)
[2024-10-21 10:52] LABS: Albumin 3.1 g/dl (3.5-5.0)
--- NOTE | 2024-10-21 11:07 | PN.DE.MGMTRT ---
Insulin Management
- -
10/21/2024: Diabetes Management Consult
83 year old male admitted due to recurrent falls at home. PMH: Chronic nonischemic DC injury, CAD status post PCI/stents x 2, bifascicular block, echo September 27, 2024: EF 45-50%, global hypokinesis, mild LVH, mild AR, TME, dementia, noncompliance
with medication, polymicrobial UTIs, prostate CA,/TURP, mechanical falls, chronic ambulatory dysfunction, CKD stage III, primary HTN, gout, BPH, HLD and IDDM
Of note, pt was recently admitted 09/25 - 09/28/2024 2/2 to medication noncompliance and was discharged to SNF
Pt awake, alert, oriented, resting in bed, offers no complaints, able to participate in diabetes mgt.
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 A1C 9.7%, Cr 1.2, eGFR>60
States he has a working glucose monitor but does not check his blood sugars daily, only checks every other day, instructed to monitor glucose BID.
Pt received Lantus 15 units @ HS and is noted for an episode of Hypoglycemia this morning as low as 52.
His Lantus dose has been reduced to 10 units, MFM and Glimepiride have been d/c'd by Dr. Bagley.
Agree with reduced dose of Lantus to 10 units @ HS. Will resume low dose MFM, 1st dose at dinner and resume Glimepiride 2 mg daily, 1st dose in AM.
Will closely monitor glucose trend and adjust meds if necessary.
Discussed with pt's Nurse.
Diabetes History
- -
Type of Diabetes: 2 requiring insulin
Pre-Admission Diabetes Regimen
10/21/24
06:53
Creatinine 1.2
Insulin Pump Settings
IP Diabetes Regimen
10/20/24 10/20/24 10/20/24
11:57 17:40 21:13
Glucose
POC Glucose 215 H 147 H 112 H
10/21/24 10/21/24 10/21/24
06:53 07:26 07:43
Glucose 52 L*
POC Glucose 66 L 66 L
10/21/24
08:09
Glucose
POC Glucose 84
Patient Education
[2024-10-21 11:39] VITALS: BP 141/82
[2024-10-21 11:54] LABS: Glucose - Point of Care 76 mg/dl (70-99)
[2024-10-21 13:49] LABS: Vitamin B12 288 pg/ml (239-931)
[2024-10-21 14:32] LABS: Glucose - Point of Care 81 mg/dl (70-99)
--- NOTE | 2024-10-21 14:55 | W.PN.UPDATE ---
Update Note
Progress Note Update
patient seen chart reviewed. spoke with cm. mr brewer was in good spirits. nursing reports he is cooperative. we recapitulated our conversation yesterday. mr brewer maintains that his and he do not get along well. today he was a bit more
nuanced saying while he thinks she does not like him he is not so enamored of her either and over fifty years of marriage they have grown apart. he IS willing to go to snf to work on balance and strength hopefully minimizing his risk of fall at this
point. he is not requiring any psychotropic medication at this point. he reminded me that i did not return to talk to him yesterday afternoon as i said i would. i apologized and explained to him that i was unable to find a number for his son. i
did tell him that i would touch base with him tomorrow and see what progress has been made in referrals to snf so i can discuss w him.
[2024-10-21 15:45] VITALS: BP 124/58; PULSE 84
--- NOTE | 2024-10-21 16:20 | CM ---
CM reviewed chart, spoke with patients . aware that no beds at [facility] and [facility]. Phone call to Tavia in admissions to discuss referral to [facility], discussed patient is likely a transition to LTC. Patient seen
bedside with Marycarmen, patient agreeable to SNF at this time. Patient will require auth one accepting facility found. CM will continue to follow for all discharge planning needs.
Plan; SNF, will require insurance auth, [facility].
[2024-10-21 16:41] LABS: Glucose - Point of Care 156 mg/dl (70-99)
[2024-10-21] MEDS: NOVOLOG FLEXPEN-LOW RESISTANCE 1 UNITS SC (17:03)
[2024-10-21] MEDS: CRESTOR 10 MG PO (17:04)
[2024-10-21] MEDS: GLUCOPHAGE 500 MG PO (17:04)
[2024-10-21 18:48] LABS: Glucose - Point of Care 143 mg/dl (70-99)
[2024-10-21] MEDS: COLACE PO (19:27)
[2024-10-21 19:33] VITALS: BP 133/56
[2024-10-21 21:33] LABS: Glucose - Point of Care 131 mg/dl (70-99)
[2024-10-21] MEDS: LANTUS 0.1 UNITS SC (21:47)
[2024-10-21 23:22] VITALS: BP 151/62
[2024-10-22 03:19] LABS: Glucose - Point of Care 87 mg/dl (70-99)
[2024-10-22 03:40] VITALS: BP 152/73
[2024-10-22 06:00] VITALS: BMI 24.3
[2024-10-22 07:05] VITALS: BP 144/59
--- NOTE | 2024-10-22 07:42 | PN.DE.MGMTRT ---
Insulin Management
- -
10/22/2024: Diabetes Management follow up
83 year old male admitted due to recurrent falls at home. PMH: Chronic nonischemic TN injury, CAD status post PCI/stents x 2, bifascicular block, echo September 27, 2024: EF 45-50%, global hypokinesis, mild LVH, mild AR, TME, dementia, noncompliance
with medication, polymicrobial UTIs, prostate CA,/TURP, mechanical falls, chronic ambulatory dysfunction, CKD stage III, primary HTN, gout, BPH, HLD and IDDM.
Of note, pt was recently admitted 09/25 - 09/28/2024 2/2 to medication noncompliance and was discharged to SNF.
Was taking Lantus 15 units, Glimepiride 2 mg daily and Metformin 500 BID FRONT OFFICE SPEC. A1C 9.7%, Cr 1.2, eGFR>60
States he has a working glucose monitor but does not check his blood sugars daily, only checks every other day, instructed to monitor glucose BID.
Pt sleeping, easily arousable, offers no complaints, able to participate in diabetes mgt.
Received Lantus 10 units @ HS, 3AM glucose was 87 and FBG 88 this AM. Will reduce Lantus to 8 units @ HS.
10/21 premeal range stable and in range, 76 to 156, will cont Metformin 500mg BID and Glimepiride 2 mg daily.
Will closely monitor glucose trend and adjust meds if necessary.
Discussed with pt's Nurse.
Diabetes History
- -
Type of Diabetes: 2 requiring insulin
Pre-Admission Diabetes Regimen
10/21/24
06:53
Creatinine 1.2
Insulin Pump Settings
IP Diabetes Regimen
10/21/24 10/21/24 10/21/24
06:53 07:43 08:09
Glucose 52 L*
POC Glucose 66 L 84
10/21/24 10/21/24 10/21/24
11:50 14:30 16:38
Glucose
POC Glucose 76 81 156 H
10/21/24 10/21/24 10/22/24
18:46 21:31 03:08
Glucose
POC Glucose 143 H 131 H 87
Meal type: Lunch
Meal type: Breakfast
Amount consumed: 100%
Amount consumed: 100%
Patient Education
[2024-10-22 07:52] LABS: Glucose - Point of Care 88 mg/dl (70-99)
[2024-10-22] MEDS: NOVOLOG FLEXPEN-LOW RESISTANCE SC ×3 (07:53→17:05)
[2024-10-22] MEDS: HEPARIN 5000 UNITS SC (08:18)
[2024-10-22] MEDS: COLACE 100 MG PO (08:18)
[2024-10-22] MEDS: LOPRESSOR 25 MG PO (08:18)
[2024-10-22] MEDS: ASPIR LOW (ENTERIC COATED) 81 MG PO (08:18)
[2024-10-22] MEDS: GLUCOPHAGE 500 MG PO ×2 (08:19→17:07)
[2024-10-22] MEDS: AMARYL 2 MG PO (08:19)
[2024-10-22] MEDS: PROCARDIA XL (EXTENDED RELEASE) 60 MG PO (08:19)
[2024-10-22] MEDS: PLAVIX 75 MG PO (08:19)
--- NOTE | 2024-10-22 09:34 | W.PN.HOSP.TC ---
Addendum entered and electronically signed by Vinicius Bagley MD 10/22/24 15:26:
Total time spent on d/c = 34 min. This included today's physical exam, progress note, review of laboratory and diagnostic data, preparation of discharge documents and prescriptions, and discussions about the pt's hospital course and discharge plan
with the patient and other medical office asst involved in the patient's care.
Original Note:
Today's Communication/Plan
-
d/c
Assessment / Plan
Assessment / Plan
Gen: NAD, AAOx2.
Eyes: EOMI, PERRLA, no scleral icterus.
Neck: supple.
CV: remains RRR, +S1/S2, no m/r/g.
Resp: CTAB anteriorly, no rales, wheezes, or rhonchi.
Abd: remains +BS, soft, NT, ND
Skin: No rashes.
Neuro: CN 2-12 intact, non-focal.
Psych: Normal mood and affect.
CT brain:
1. No CT evidence for acute intracranial hemorrhage.
2. Moderate bilateral temporal lobe volume loss suggesting a chronic neurodegenerative disease (possibly Alzheimer's dementia).
3. Moderate cerebellar volume loss.
4. Moderate to severe diffuse distention of the ventricular system which appears unchanged. Diagnostic possibilities are (1) normal pressure communicating hydrocephalus or (2) ex vacuo ventricular dilatation.
5. Moderate periventricular white matter leukoaraiosis.
Recurrent falls/ambulatory dysfunction:
-PT/OT
-note, NPH can be worked up and managed in the outpt setting
-orthostatic VS unremarkable
Dementia, likely Alzheimer's type:
-Appreciate psychiatry
-had been noncompliant with meds
DM2:
-AccuCheck/SSI
-recent a1c 9.7%
-had hypoglycemia
-seen by diabetes AUDIOLOGY ASSISTANT, meds adjusted: Metformin 500mg BID, Glimepiride 2mg daily, Lantus to 8U with hypoglycemia.
Other problems:
Hypokalemia: s/p PO K
Essential HTN: cont BB/CCB
CAD s/p stents x 2: cont ASA/plavix/BB/statin
Chronic HFmrEF: cont BB
Prostate CA with h/o TURP: Flomax was stopped on 09/28/24
CKD3b
Gout: Allopurinol was stopped 09/28/24
HLD: cont statin
Heparin/DNR
Medically cleared for discharge. Case management aware.
Anticipated Discharge: Today
Subjective/Interval History
-
Date of Service: October 22, 2024
No new complaints.
Objective Data
-
Vital Signs:
Vital Signs
Temp Pulse Resp BP Pulse Ox
97.4 F 60 18 144/59 98
10/22/24 07:05 10/22/24 08:18 10/22/24 07:05 10/22/24 08:18 10/22/24 07:05
I&O
10/21/24 10/22/24 10/23/24
06:59 06:59 06:59
Intake Total 480 / 480 1200 / 1200
Output Total 200 / 200
Balance 280 / 280 1200 / 1200
[2024-10-22 10:36] LABS: Blood Urea Nitrogen 30 mg/dl (9-20); Calcium 8.4 mg/dl (8.4-10.2); Carbon Dioxide 29 mmol/L (22-30); Chloride 99 mmol/L (98-107); Estimated Creatinine Clearance 36 ml/min; Glucose 109 mg/dl (70-99); Potassium 4.8 mmol/L (3.5-5.1); Sodium 136 mmol/L (135-145); eGFR 45.91
[2024-10-22 11:07] VITALS: BP 112/48
[2024-10-22 12:03] LABS: Glucose - Point of Care 142 mg/dl (70-99)
--- NOTE | 2024-10-22 12:39 | CM ---
Addendum entered by Jessica Xie 10/22/24 15:59:
Patient scheduled for 6:00 p.m. ambulance transport. Voicemail left for patients with transport time.
Addendum entered by Jessica Xie 10/22/24 15:16:
Phone call from Stephenie at [facility], [employer] approved auth 10/22-10/28, next review 10/28, call for review [phone], auth #[id number]. Update to [facility] at [facility].
[facility]
Report: [phone]

Original Note:
CM spoke with patient, agreeable to discharge to [facility]. Phone call to patients , also agreeable to [facility]. Phone call to patients insurance at ( ), auth being sent to [employer], awaiting call back with
confirmation of auth approval. Patient will require ambulance transport. CM will continue to follow for all discharge planning needs.
Plan; [facility], pending auth approval, will require ambulance transport.
--- NOTE | 2024-10-22 12:59 | W.PN.UPDATE ---
Update Note
Progress Note Update
patient seen chart reviewed. discussed with cm and nursing. the patient is going to snf at [facility]. we talked about the need to work on things with his so they can eventually be together. cm told me 's comment when told he was
going was 'i thought i'd have more time alone.' patient was calm and pleasant when seen. he is not enthused about going to snf but is willing to give it a try to get stronger and more able to remain upright without falling.
[2024-10-22 15:58] VITALS: BP 124/46
[2024-10-22 17:04] LABS: Glucose - Point of Care 79 mg/dl (70-99)
[2024-10-22] MEDS: CRESTOR 10 MG PO (17:07)
--- NOTE | 2024-10-23 17:08 | W.DCSUMMARY ---
Discharge Summary
Discharge Data
Date of Admission: 10/19/24
Date of Discharge: 10/22/24
-
Pending Results: No
Hospital Course
Primary diagnoses:
Recurrent falls, ambulatory dysfunction
Secondary diagnoses:
Dementia, likely Alzheimer's type
Hypokalemia
Essential hypertension
Coronary artery disease s/p stents
Chronic heart failure with mild reduced ejection fraction
Prostate cancer with h/o transurethral radical prostatectomy
Chronic kidney disease stage 3b
Gout
Hyperlipidemia
Consultants:
Psychiatry
Imaging:
CT brain:
1. No CT evidence for acute intracranial hemorrhage.
2. Moderate bilateral temporal lobe volume loss suggesting a chronic neurodegenerative disease (possibly Alzheimer's dementia).
3. Moderate cerebellar volume loss.
4. Moderate to severe diffuse distention of the ventricular system which appears unchanged. Diagnostic possibilities are (1) normal pressure communicating hydrocephalus or (2) ex vacuo ventricular dilatation.
5. Moderate periventricular white matter leukoaraiosis.
Hospital course: 83-year-old male who presented with a chief complaint of multiple falls as outlined in the H&P done on admission. CT brain above. Note, NPH can be worked up and managed in the outpatient setting. Orthostatic VS were unremarkable.
While hospitalized the patient's hemoglobin A1c was 9.7%. He did have an episode of hypoglycemia. He was seen by the diabetes nurse practitioner and his diabetic medications were adjusted. The patient was discharged to nursing home in
medically stable condition.
Discharge Plan
-
Patient Disposition: [place] SNF/Hospital
Discharge Diagnosis/Procedures: Recurrent falls/ambulatory dysfunction, Dementia, likely Alzheimer's type
Condition: Good
Diet: Diabetic, Carb Controlled
Activity: With assistance
Driving Restrictions: No driving
Referrals:
UNKNOWN - PT DOES,NOT KNOW [Family Provider] - in less than 1 week
Prescriptions:
New
Insulin Glargine Lantus [Lantus] 8 UNITS
Subcutaneous Insulin Syringe [Syringe-Insulin] 0 UNIT
As Directed mls/hr SC HS
Ordered By: Vinicius Bagley MD
Last Taken: 10/21/24 21:47 0.1 mls
Continued
glimepiride 2 MG tablet
2 mg PO DAILY
rosuvastatin 10 MG tablet
10 mg PO QPM
metoprolol tartrate 25 MG tablet
25 mg PO DAILY
acetaminophen [Tylenol Extra Strength] 500 MG tablet
1,000 mg PO Q6H PRN (Reason: Pain)
Rx Instructions:
Do not exceed >4000 mg daily.
docusate sodium 100 MG capsule
100 mg PO BID
cyanocobalamin (vitamin B-12) 500 mcg Tablet
metformin 500 MG tablet
500 mg PO 0800,1700 Qty: 0 0RF
Patient Comments:
per patients he was only taking it once a day
clopidogrel 75 MG tablet
75 mg PO DAILY Qty: 30 0RF
aspirin 81 MG tablet,delayed release (DR/EC)
81 mg PO DAILY Qty: 30 0RF
nifedipine 60 MG tablet extended release 24hr
60 mg PO DAILY Qty: 30 0RF
Discontinued
insulin glargine [Lantus Solostar U-100 Insulin] 300 UNITS/3 ML insulin pen
15 units SC HS
Discharge Orders:
Discharge Patient (As Directed); Ordered 10/22/24
Ordered By: Vinicius Bagley
Discharge Date and Time
Discharge Date/Time: 10/22/24 18:50
Print Language: ROMANSH
== END 2024-10-22 18:50 ==
LOC: 4 WEST ACU 23:48
PROVIDERS: Clinical Nurse Specialist Family Health; Internal Medicine; ADMITTING PHYSICIAN Internal Medicine; ATTENDING PHYSICIAN Internal Medicine; CONSULT PHYSICIAN Psychiatry & Neurology Psychiatry; EMERGENCY PHYSICIAN Emergency Medicine
DX: R62.7 Adult failure to thrive (principal); R29.6 Repeated falls; E11.65 Type 2 diabetes mellitus with hyperglycemia; F03.A0 Unspecified dementia, mild, without behavioral disturbance, psychotic disturbance, mood disturbance, and anxiety; I45.10 Unspecified right bundle-branch block; I50.9 Heart failure, unspecified; I5A Non-ischemic myocardial injury (non-traumatic); I45.2 Bifascicular block; I13.0 Hypertensive heart and chronic kidney disease with heart failure and stage 1 through stage 4 chronic kidney disease, or unspecified chronic kidney disease; I25.10 Atherosclerotic heart disease of native coronary artery without angina pectoris; N18.32 Chronic kidney disease, stage 3b; I67.81 Acute cerebrovascular insufficiency; E87.6 Hypokalemia; E11.22 Type 2 diabetes mellitus with diabetic chronic kidney disease; M10.9 Gout, unspecified; N40.0 Benign prostatic hyperplasia without lower urinary tract symptoms; E78.00 Pure hypercholesterolemia, unspecified; Z98.1 Arthrodesis status; Z90.79 Acquired absence of other genital organ(s); Z90.49 Acquired absence of other specified parts of digestive tract; Z95.5 Presence of coronary angioplasty implant and graft; Z85.46 Personal history of malignant neoplasm of prostate; Z79.4 Long term (current) use of insulin; Z79.82 Long term (current) use of aspirin; Z79.02 Long term (current) use of antithrombotics/antiplatelets; Z79.84 Long term (current) use of oral hypoglycemic drugs; Z79.2 Long term (current) use of antibiotics; Z75.1 Person awaiting admission to adequate facility elsewhere; Z91.148 Patient's other noncompliance with medication regimen for other reason; Z87.440 Personal history of urinary (tract) infections; Z66 Do not resuscitate
CPT/HCPCS: 70450; 80048; 80053; 81003; 82040; 82607; 82746; 82962; 83735; 84484; 85025; 85027; 93005; 96360; 97116; 97163; 97167; 97535; 99285; G0378

== ENCOUNTER 2025-01-05 12:32 | Emergency (ER) | payer OTHER, SELFPAY ==
[2025-01-05] VITALS (13 sets, daily range): BP systolic 138–200; BP diastolic 54–118; PULSE 57–72; O2SAT 98; BMI 25.3
[2025-01-05 13:08] LABS: ALT (SGPT) 14 U/L (0-50); AST (SGOT) 19 U/L (17-59); Albumin 3.7 g/dl (3.5-5.0); Alkaline Phosphatase 107 U/L (38-126); Blood Urea Nitrogen 22 mg/dl (9-20); Calcium 9.2 mg/dl (8.4-10.2); Carbon Dioxide 31 mmol/L (22-30); Chloride 105 mmol/L (98-107); Estimated Creatinine Clearance 40 ml/min; Glucose 222 mg/dl (70-99); Potassium 4.2 mmol/L (3.5-5.1); Sodium 140 mmol/L (135-145); Total Bilirubin 2.2 mg/dl (0.2-1.3); Total Protein 6.2 g/dl (6.3-8.2); eGFR 54.17
[2025-01-05 13:15] LABS: % Basophils 0.4 % (0-2); % Eosinophils 2.9 % (0-6); % Immature Granulocytes 0.4 % (0-0.5); % Lymphocytes 23.4 % (20.5-51.1); % Monocytes 4.6 % (1.7-9.3); % Neutrophils 68.3 % (42.2-75.2); Absolute Eosinophils 0.2 10^3/uL (0-0.7); Absolute Lymphocytes 1.3 10^3/uL (1.2-3.4); Absolute Monocytes 0.3 10^3/uL (0.1-0.6); Absolute Neutrophils 3.7 10^3/uL (1.4-6.5); Hematocrit 37.7 % (39.0-52.0); Hemoglobin 13.1 g/dL (13.0-18.0); Mean Corp Hgb Conc. 34.7 g/dL (33.0-37.0); Mean Corpuscular Hgb 33.2 pg (27.0-31.0); Mean Corpuscular Volume 95.4 fL (80.0-94.0); Mean Platelet Volume 10.5 fL (7.4-10.4); Nucleated Red Blood Cells % 0 % (-); Platelet Count 185 10^3/uL (130-400); Red Blood Cell Count 3.95 10^6/uL (4.70-6.10); Red Cell Dist. Width 12.7 % (11.5-14.5); White Blood Cell Count 5.4 10^3/uL (4.8-10.8)
[2025-01-05 14:48] LABS: Urine Albumin 2+ (Neg - Trace); Urine Bilirubin Negative (Negative); Urine Character Clear (Clear); Urine Color Yellow; Urine Glucose 3+ (Negative); Urine Ketone Negative (Negative); Urine Leukocyte Negative (Negative); Urine Nitrite Negative (Negative); Urine Occult Blood Negative (Negative); Urine Specific Gravity 1.015 (<1.030); Urine Urobilinogen Negative (Neg - 1+)
[2025-01-05 15:06] LABS: Urine Red Blood Cell 0-2 /HPF (0-2)
--- NOTE | 2025-01-05 16:45 | ED.GENMED ---
History of Present Illness
General
Chief Complaint: Weakness
Source: patient
Exam Limitations: none
Time Seen by Provider: 01/05/25 13:35
Nursing documentation reviewed up to this point in time: agreed with
History of Present Illness
History of Present Illness:
Patient with history of dementia, presents to ED from home secondary to dizziness when standing up over the past 24 hours. Patient denies falling down. Denies headache. Denied blurred vision. Denies loss of sensation or weakness. Denies
difficulty with speech or swallowing. Patient states that he has had similar symptoms before. Patient ambulates at baseline with use of walker, which he has at home. Denies recent illness. Denies recent change in medications or diet. Denies
preceding chest palpitations, shortness of breath, or nausea. At the time evaluation ED, patient states that his called ambulance, but he does not know why.
Past History
Past History
ED Past Medical History: CAD, Cancer (Prostate CA), HTN, Hypercholesterolemia, IDDM and Other (Back pain, Slight Dementia but able to answer questions)
ED Past Surgical History: Appendectomy, Cardiac (Stents X 2), Orthopedic (Laminectomy, Right Menisectomy, Spinal fusion, revision or spinal incision X 2) and Urological (TURP)
Social History
Tobacco: Non-smoker
Alcohol: None
Drug: None
Personal:
Living: with family
Employment: Retired
Family History
Family History: Other (Noncontributory)
Review of Systems
Review of Systems
Unable to obtain full review of systems at this time due to: dementia
All Other Systems: Not applicable
Phy Exam
Physical Exam
Physical Exam:
Physical Exam
General: no apparent distress, not acutely ill. afebrile
Head: nc/at. eomi
Neck: supple. normal range of motion
Heart: s1/s2 regular rate and rhythm, no murmur
Lungs: no acute respiratory distress. clear bilaterally
Abdomen: normal bowel sounds. not tender.
Neuro: alert and oriented x 2. no focal sensory/motor deficit. normal speech
Skin: no rash
Psychiatric: well kept. interactive and cooperative
Extremities: no edema. no calf tenderness.
Course
Orders/Labs/Results
Orders:
Orders
01/05/25 12:38
Electrocardiogram (*1) Urgent
Reason for Study: Fatigue / Weakness
EKG- Treatment ONCE
01/05/25 12:46
Complete Blood Count/With Diff Urgent
Comprehensive Metabolic Panel Urgent
01/05/25 14:11
Orthostatic VS- Treatment ONCE
01/05/25 14:38
Urinalysis Reflex To Culture Urgent
Date Specimen was Collected: 01/05/25
Time Specimen was Collected: 14:37
Urine Microscopic Reflex Cult Urgent
01/05/25 16:45
Physical Therapy Consult [Pt Eval And Treat] Urgent
Activity Level: Ambulate
01/05/25 16:46
Case Management Consult ONCE
Case Management Consult: VN/Home Care
01/05/25 17:23
0.9% Sodium Chloride 500 ml [Nss] 500 ml IV BOLUS
01/05/25 17:25
0.9% Sodium Chloride 250 ml [Nss] 250 ml IV BOLUS
Abnormal Lab Results
01/05/25 01/05/25
12:46 14:38
RBC 3.95 L 10^6/uL
(4.70-6.10)
Hct 37.7 L %
(39.0-52.0)
MCV 95.4 H fL
(80.0-94.0)
MCH 33.2 H pg
(27.0-31.0)
MPV 10.5 H fL
(7.4-10.4)
Carbon Dioxide 31 H mmol/L
(22-30)
BUN 22 H mg/dl
(9-20)
Glucose 222 H mg/dl
(70-99)
Total Bilirubin 2.2 H mg/dl
(0.2-1.3)
Total Protein 6.2 L g/dl
(6.3-8.2)
Urine Glucose 3+ A
(Negative)
Urine Albumin (Reflex) 2+ A
(Neg - Trace)
01/05/25 12:46
01/05/25 12:46
Vital Signs
Initial and Last Documented VS:
Initial Vital Signs
Temp Pulse Resp Pulse Ox
98.4 F 60 18 100
01/05/25 12:34 01/05/25 12:34 01/05/25 12:34 01/05/25 12:34
Last Documented Vital Signs
Temp Pulse Resp BP Pulse Ox
98.4 F 88 27 200/64 98
01/05/25 12:34 01/05/25 17:06 01/05/25 17:15 01/05/25 17:06 01/05/25 16:45
MDM/Problems Addressed
MDM/Problems Addressed:
Orthostatic vital signs noted, without any symptoms. Patient evaluated by physical therapist. Patient is able to ambulate with use of walker, with steady gait. No further recommendation provided by physical therapy.
Patient with an unremarkable workup in ED, including blood work and urinalysis.
Discussed patient's spouse. Decision made to discharge patient home with consult to case management for visiting nurse evaluation at home, for potential PT/OT.
*Critical Care Note
Total Time (30-74mins, 75-104mins- exclusive of procedures): Not Applicable
ED Attending Note
-
Portions of this chart may have been created with voice recognition software.� Occasional wrong word or��sound alike� substitutions may have occurred due to the inherent limitations of voice recognition software.
Discharge Plan
Departure
Patient Disposition: Home (Routine Discharge)
Date of Disposition: 01/05/25
Time of Disposition: 17:27
Patient with high blood pressure during this ER visit?: Yes
Condition: Good
Discharge Problem:
Dizziness, Dementia
Instructions: Dizziness in adults - ED discharge instructions, Dementia - ED discharge instructions
Prescriptions:
No Action
glimepiride 2 MG tablet
2 mg PO DAILY
rosuvastatin 10 MG tablet
10 mg PO QPM
metoprolol tartrate 25 MG tablet
25 mg PO DAILY
acetaminophen [Tylenol Extra Strength] 500 MG tablet
1,000 mg PO Q6H PRN (Reason: Pain)
Rx Instructions:
Do not exceed >4000 mg daily.
docusate sodium 100 MG capsule
100 mg PO BID
cyanocobalamin (vitamin B-12) 500 mcg Tablet
metformin 500 MG tablet
500 mg PO 0800,1700 Qty: 0 0RF
Patient Comments:
per patients he was only taking it once a day
clopidogrel 75 MG tablet
75 mg PO DAILY Qty: 30 0RF
aspirin 81 MG tablet,delayed release (DR/EC)
81 mg PO DAILY Qty: 30 0RF
nifedipine 60 MG tablet extended release 24hr
60 mg PO DAILY Qty: 30 0RF
Insulin Glargine Lantus [Lantus] 8 UNITS
Subcutaneous Insulin Syringe [Syringe-Insulin] 0 UNIT
As Directed mls/hr SC HS
Ordered By: Vinicius Bagley MD
Last Taken: Unknown
Referrals:
UNKNOWN - PT DOES,NOT KNOW [Family Provider] -
Activity Restrictions/Additional Instructions:
As discussed, please follow-up with your primary care physician for reevaluation. You will be contacted at home by case management to make an arrangement for visiting nurse evaluation at home.
Interventions
Interventions:
*Risk Screen - Suicide Last Done: 01/05/25 12:41
*Neglect/Abuse Screening Last Done: 01/05/25 12:41
*ED- Fall Risk Assessment Last Done: 01/05/25 12:43
*ED COVID-19 Vaccine History Last Done: 01/05/25 12:41
*Nursing Disposition Last Done: 01/05/25 19:12
ED- Cardiac Assessment Last Done: 01/05/25 12:42
ED- Neurological Assessment Last Done: 01/05/25 12:44
Discharge Date and Time
Discharge Date/Time: 01/05/25 19:12
Print Language: GREEK
[2025-01-05] MEDS: NSS 250 IV (17:31)
== END 2025-01-05 19:12 | disposition home or self-care (01) ==
LOC: EMR 12:32
PROVIDERS: Emergency Medicine; EMERGENCY PHYSICIAN Emergency Medicine
DX: R42 Dizziness and giddiness (principal); F03.90 Unspecified dementia, unspecified severity, without behavioral disturbance, psychotic disturbance, mood disturbance, and anxiety; I25.10 Atherosclerotic heart disease of native coronary artery without angina pectoris; I10 Essential (primary) hypertension; E78.00 Pure hypercholesterolemia, unspecified; E11.9 Type 2 diabetes mellitus without complications; Z79.4 Long term (current) use of insulin; Z95.5 Presence of coronary angioplasty implant and graft; Z90.79 Acquired absence of other genital organ(s); Z98.1 Arthrodesis status
CPT/HCPCS: 99284; 80053; 81003; 81015; 85025; 93005

== ENCOUNTER 2025-04-10 20:00 | Observation (INO) | payer OTHER, SELFPAY ==
[2025-04-10] VITALS (16 sets, daily range): BP systolic 115–201; BP diastolic 60–89; PULSE 65–78; BMI 24.8; BMI 24.0
[2025-04-10 11:55] LABS: Hematocrit 41.8 % (39.0-52.0); Hemoglobin 14.6 g/dL (13.0-18.0); Mean Corp Hgb Conc. 34.9 g/dL (33.0-37.0); Mean Corpuscular Volume 94.6 fL (80.0-94.0); Nucleated Red Blood Cells % 0 % (-); Platelet Count 185 10^3/uL (130-400); Red Cell Dist. Width 12.9 % (11.5-14.5)
[2025-04-10 12:31] LABS: Troponin I 0.039 ng/ml
[2025-04-10 14:00] LABS: ALT (SGPT) < 10 U/L (0-50); AST (SGOT) 18 U/L (17-59); Albumin 3.7 g/dl (3.5-5.0); Alkaline Phosphatase 51 U/L (38-126); Blood Urea Nitrogen 24 mg/dl (9-20); Calcium 8.9 mg/dl (8.4-10.2); Carbon Dioxide 29 mmol/L (22-30); Chloride 107 mmol/L (98-107); Estimated Creatinine Clearance 40 ml/min; Glucose 185 mg/dl (70-99); Potassium 3.9 mmol/L (3.5-5.1); Sodium 139 mmol/L (135-145); Total Protein 6.1 g/dl (6.3-8.2); eGFR 54.17
--- NOTE | 2025-04-10 14:07 | ED.GENMED ---
History of Present Illness
General
Chief Complaint: Dizziness
Source: patient
Time Seen by Provider: 04/10/25 13:54
Nursing documentation reviewed up to this point in time: agreed with
History of Present Illness
History of Present Illness:
84 yr old male with CAD , thn, hyperlipidemia, dementia presents to the ED for evaluation by EMS.
Pt is a poor historian and stated that he was very dizzy this morning but is now fine . Presently has no complaints. He is unaware of the location of his .
He denies any chest pain shortness of breath. Denies any pain. ]
He ambulated slowly with a walker with the nurse.
Past History
Past History
ED Past Medical History: CAD, Cancer (Prostate CA), HTN, Hypercholesterolemia, IDDM and Other (Back pain, Slight Dementia but able to answer questions)
ED Past Surgical History: Appendectomy, Cardiac (Stents X 2), Orthopedic (Laminectomy, Right Menisectomy, Spinal fusion, revision or spinal incision X 2) and Urological (TURP)
Social History
Tobacco: Non-smoker
Alcohol: None
Drug: None
Personal:
Living: with family
Employment: Retired
Family History
Family History: Other (Noncontributory)
Phy Exam
General Physical Exam
General Presentation: no apparent distress
General age: appears stated age
General Skin: warm and dry
General Habitus: normal
General Mental: alert
General Hydration: appears well hydrated
Neurological Exam
Neurological Exam: alert and other (Confused however does follow commands)
Musculoskeletal Exam
Musculoskeletal Exam: full ROM
Skin Exam
Skin Exam: normal color and warm/dry
Psychiatric Exam
Psychiatric Exam: normal mood/affect
Course
Orders/Labs/Results
Orders:
Orders
04/10/25 11:43
Complete Blood Count/With Diff Urgent
Troponin I Urgent
04/10/25 13:26
Comprehensive Metabolic Panel Urgent
04/10/25 14:56
CT Head W/o Iv Contrast Urgent
Comment:
Reason For Exam: dizzy
04/10/25 15:10
Electrocardiogram (*1) Stat
Reason for Study: Other
Other Reason for Exam: chest pain
EKG- Treatment ONCE
04/10/25 18:28
UA Reflex to Culture [Urinalysis Reflex To Culture] Urgent
04/10/25 18:41
0.9% Sodium Chloride 500 ml [Nss] 500 ml IV BOLUS
Abnormal Lab Results
04/10/25 04/10/25 04/10/25
11:43 13:26 18:34
RBC 4.42 L 10^6/uL
(4.70-6.10)
MCV 94.6 H fL
(80.0-94.0)
MCH 33.0 H pg
(27.0-31.0)
MPV 10.7 H fL
(7.4-10.4)
BUN 24 H mg/dl
(9-20)
Glucose 185 H mg/dl
(70-99)
Total Bilirubin 2.2 H mg/dl
(0.2-1.3)
Troponin I 0.039 H* ng/ml
Total Protein 6.1 L g/dl
(6.3-8.2)
POC Glucose 248 H mg/dl
(70-99)
04/10/25 11:43
04/10/25 13:26
Vital Signs
Initial and Last Documented VS:
Initial Vital Signs
Temp Pulse Resp BP Pulse Ox
98.5 F 68 16 155/67 100
04/10/25 11:36 04/10/25 11:36 04/10/25 11:36 04/10/25 11:36 04/10/25 11:36
Last Documented Vital Signs
Temp Pulse Resp BP Pulse Ox
98.5 F 70 17 183/65 100
04/10/25 11:36 04/10/25 18:30 04/10/25 18:30 04/10/25 18:10 04/10/25 14:28
MDM/Problems Addressed
MDM/Problems Addressed:
84 yr old male from home was sent for EMS.
PT has dementia and stated he was dizzy however felt fine on arrival . HE had no complaints of chest pain/shortness. He presented here awake alert no acute distress but very poor historian.
We had difficulty contacting family however did call. reports that patient came into her room stating he did not feel well today but was not specific. He told her' he was going to .' She reports she is having a lot of difficulty
taking care of at home. He does not want to get dressed he is barely wanting to wear a depend and will not take any of his medicines. She does not feel that she can care for him at home.
While here patient had blood work his troponin is elevated however has been chronically elevated in the past and he has no complaints of chest pain and no acute findings on EKG. His CAT scan is negative. He is afebrile with a normal white count.
Patient will admission will need case management consult for possible extra help at home discharge planning or rehab. UA pending at this time will obtain
Chronic conditions affecting care:
Dementia
*Radiology
Radiology exam reviewed: radiology read reviewed
*Pulse Oximetry
SaO2: 100
Oxygen Mode of Delivery: Room air
Patient hypoxic: no
*Critical Care Note
Total Time (30-74mins, 75-104mins- exclusive of procedures): Not Applicable
ED Attending Note
-
Portions of this chart may have been created with voice recognition software.� Occasional wrong word or��sound alike� substitutions may have occurred due to the inherent limitations of voice recognition software.
Discharge Plan
Departure
Patient Disposition: Admit
Date of Disposition: 04/10/25
Time of Disposition: 18:41
Admit to: Med/Surg
Admit to doctor: hospitalist
Presentation/result/management discussed w/ accepting MD/DO: Hospitalist
Patient with high blood pressure during this ER visit?: Yes
Condition: Fair
Covid-19: Not Applicable
Discharge Problem:
Dementia
Prescriptions:
No Action
glimepiride 2 MG tablet
2 mg PO DAILY
rosuvastatin 10 MG tablet
10 mg PO QPM
metoprolol tartrate 25 MG tablet
25 mg PO BID
clopidogrel 75 MG tablet
75 mg PO DAILY Qty: 30 0RF
aspirin 81 MG tablet,delayed release (DR/EC)
81 mg PO DAILY Qty: 30 0RF
nifedipine 60 MG tablet extended release 24hr
60 mg PO DAILY Qty: 30 0RF
levothyroxine 50 mcg tablet
50 mcg PO DAILY
Patient Comments:
2 bottles sent with pt filled 10/23 and 01/21 both looked untouched
insulin glargine [Lantus Solostar U-100 Insulin] 100 unit/mL (3 mL) insulin pen
8 unit SC DAILY
Centrum Men 8 mg iron- 200 mcg-600 mcg Tablet
PO
metformin 500 MG tablet
500 mg PO TID
Referrals:
[facility], [Other]
Alex Morejon MD [Family Provider, Internal Medicine]
Interventions
Interventions:
*General Assessment Last Done: 04/10/25 15:02
*ED- Fall Risk Assessment Last Done: 04/10/25 15:02
*ED COVID-19 Vaccine History Last Done: 04/10/25 15:02
ED- Neurological Assessment Last Done: 04/10/25 15:02
ED- Cardiac Assessment Last Done: 04/10/25 15:02
Discharge Date and Time
Print Language: CITIZEN [place]
--- NOTE | 2025-04-10 14:12 | PHANOTE ---
04/10/25 med rec tech: pt has bag with mostly empty bottles, does not know his meds, said that his give him his meds, is not present, tried to call number on file but it is out of service
[2025-04-10 18:36] LABS: Glucose - Point of Care 248 mg/dl (70-99)
[2025-04-10] MEDS: NSS 500 IV (19:03)
--- NOTE | 2025-04-10 19:37 | HPS.HSE ---
Family Physician
-
Family Physician: Alex Morejon
Chief Complaint
-
Lightheaded / Dizzy
History of Present Illness
Patient is an 84y M with PMH significant for ASCVD, prostate cancer and mild dementia who presents to ED complaining of weakness and lightheadedness. Patient states that he has had intermittent lightheadedness and unsteady gait for quite some
time. He states that he has been hospitalized multiple times with similar complaints. His most recent hospitalization was September 2024. He reports that he stopped all of his medications 'months ago' as he thought they might be contributing to
his lightheadedness. His symptoms have only progressed since that time. Today patient states that he felt extremely lightheaded and was unable to stand or walk unassisted. His called 911. Patient states that he laid down to wait for EMS and
he started to feel improved while lying flat.
Medical History
Past Medical History
Past Medical History: Reports Other
Additional Past Medical History:
ASCVD status post PCI/stents x 2
Bifascicular block
Echo September 27, 2024: EF 45-50%, global hypokinesis, mild LVH, mild aortic regurg
Dementia
Noncompliance with medication
Chronic ambulatory dysfunction
Polymicrobial UTIs
Prostate CA/TURP
Gout
IDDM
CKD stage III
Hypertension
BPH
Past Surgical History: Reports Other
Additional Past Surgical History:
Prostatectomy
Appendectomy
PTCA with Stents (multiple)
Cardiac stents x 2
Laminectomy
Right meniscus repair
Spinal fusion with revision
TURP
Social History
Tobacco: Non-smoker
Alcohol: Occasional
Drug: None
Personal:
Living: With Family ( )
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
Family History
Family History: Not pertinent
Allergies / Home Medications
Allergies reflects when Allergies were last updated in [facility].
Home Medications with original date entered in [facility]
Allergy/Medication List:
Allergies
Allergy/AdvReac Type Severity Reaction Status Date / Time
No Known Allergies Allergy Verified 04/10/25 11:36
Home Medications
glimepiride 2 mg tablet 2 mg PO DAILY Diabetes 09/05/20
metoprolol tartrate 25 mg tablet 25 mg PO BID Blood pressure 09/05/20
rosuvastatin 10 mg tablet 10 mg PO QPM High cholesterol 09/05/20
aspirin 81 mg tablet,delayed release 81 mg PO DAILY #30 tabs 09/28/24
clopidogrel 75 mg tablet 75 mg PO DAILY #30 tabs 09/28/24
nifedipine 60 mg tablet,extended release 24 hr 60 mg PO DAILY Heart Disease/Condition #30 tabs 09/28/24
insulin glargine 100 unit/mL (3 mL) subcutaneous pen (Lantus Solostar U-100 Insulin) 8 unit SC DAILY 04/10/25
levothyroxine 50 mcg tablet 50 mcg PO DAILY 04/10/25
metformin 500 mg tablet 500 mg PO TID Diabetes 04/10/25
multivit,Ca,min-iron 8 mg-folic acid 200 mcg-lycopene 600 mcg tablet (Centrum Men) 1 tab PO DAILY 04/10/25
Review of Systems
-
History Source: Patient
A 12 point ROS was completed and negative except as noted: Yes
Constitutional: Reports Fatigue; Denies Fever or Chills
Respiratory: Denies Cough or Trouble Breathing
Cardiac: Denies Chest Pain or Palpitations
Abdomen/GI: Denies Abdominal Pain, Nausea, Vomiting or Diarrhea
: Denies Dysuria or Flank Pain
Musculoskeletal: Denies Joint Pain or Edema
Neurological: Reports Dizzy; Denies Headache
Psych: Denies Depression or Anxiety
Physical Exam
Vital Signs
Vital Signs
Temp Pulse Resp BP Pulse Ox
98.5 F 70 17 183/65 100
04/10/25 11:36 04/10/25 18:30 04/10/25 18:30 04/10/25 18:10 04/10/25 14:28
Physical Exam
General: Other (84y M in no acute distress.)
HEENT: Moist mucous membranes and PERRLA
Respiratory: Clear; No Wheezes, Rales or Rhonchi
Cardiac: S1/S2 and Regular Rhythm; No Murmur
GI: Soft, Non Tender, Non Distended and Normal Bowel Sounds
Musculoskeletal: No Clubbing, No Cyanosis and No Edema
Neuro: AO x 3 and Nonfocal/grossly intact
Laboratory Results
-
04/10/25 11:43
04/10/25 13:26
Laboratory Results
Total Bilirubin 2.2 mg/dl (0.2-1.3) H 04/10/25 13:26
AST 18 U/L (17-59) 04/10/25 13:26
ALT < 10 U/L (0-50) 04/10/25 13:26
Alkaline Phosphatase 51 U/L (38-126) 04/10/25 13:26
Troponin I 0.039 ng/ml H* 04/10/25 11:43
Impression/Plan
-
A/P: Patient is an 84y M with PMH significant for ASCVD, hypertension and dementia who presents to ED complaining of lightheadedness and weakness.
Lightheadedness
Chronic Ambulatory Dysfunction
- Observe overnight for further evaluation and treatment.
- Check orthostatic vital signs.
- PT / OT evaluations.
- Check Echo.
- Consider [place] [facility] options.
- Compliance with medications may improve his symptoms.
ASCVD
- Stable. Denies chest pain, dyspnea, etc.
- Initial troponin mildly elevated - but decreased from prior values.
- EKG with non-specific T wave changes compared to prior tracings.
- Resume CV med regimen including ASA, statin, metoprolol.
- Follow troponin to peak.
- Echo as noted above.
Benign Hypertension
- Uncontrolled secondary to med non-compliance.
- No meds x months according to patient.
- Resume metoprolol and nifedipine with holding parameters.
- If positive orthostatic signs / symptoms - consider addition of midodrine for postural hypotension.
DM-II
- Not compliant with medications.
- Restart basal insulin.
- Continue to hold oral medications for now.
- Follow glucose and cover with SSI as needed.
- Update A1C.
CKD III
- Stable. Renal function is at / near known baseline.
- Follow for any changes.
Senile Dementia
- Stable. Patient oriented and able to provide reliable history.
- Monitor for any acute delirium / agitation / etc during stay.
DVT Prophylaxis: Subcut Heparin
Code Status: DNR
[2025-04-10 20:14] LABS: Urine Character Clear (Clear)
[2025-04-10 21:39] LABS: Glucose - Point of Care 201 mg/dl (70-99)
[2025-04-10] MEDS: LOPRESSOR 25 MG PO (22:07)
[2025-04-10] MEDS: HEPARIN 5000 UNITS SC (22:09)
[2025-04-10] MEDS: LANTUS 0.08 UNITS SC (22:09)
[2025-04-10 22:11] LABS: Troponin I 0.050 ng/ml
[2025-04-11] VITALS (10 sets, daily range): BP systolic 109–169; BP diastolic 46–73; PULSE 52–93; BMI 23.7
[2025-04-11 03:59] LABS: Glucose - Point of Care 115 mg/dl (70-99)
[2025-04-11 04:13] LABS: Hematocrit 36.8 % (39.0-52.0); Hemoglobin 12.7 g/dL (13.0-18.0); Mean Corp Hgb Conc. 34.5 g/dL (33.0-37.0); Mean Corpuscular Volume 93.4 fL (80.0-94.0); Platelet Count 164 10^3/uL (130-400); Red Cell Dist. Width 12.8 % (11.5-14.5)
[2025-04-11 04:43] LABS: Blood Urea Nitrogen 22 mg/dl (9-20); Calcium 8.8 mg/dl (8.4-10.2); Carbon Dioxide 26 mmol/L (22-30); Chloride 109 mmol/L (98-107); Estimated Creatinine Clearance 47 ml/min; Glucose 127 mg/dl (70-99); HDL Cholesterol 40 mg/dl; LDL Cholesterol, Calculated 150 mg/dl; Potassium 3.7 mmol/L (3.5-5.1); Sodium 139 mmol/L (135-145); Very Low Density Lipoprotein 25 mg/dl (0-30); eGFR > 60.00
[2025-04-11 04:53] LABS: Troponin I 0.052 ng/ml
[2025-04-11] MEDS: SYNTHROID 50 MCG PO (05:00)
[2025-04-11 07:49] LABS: Glucose - Point of Care 124 mg/dl (70-99)
--- NOTE | 2025-04-11 08:34 | W.PN.HOSP.TC ---
Today's Communication/Plan
-
Continue monitoring on tele
See plan
Assessment / Plan
Assessment / Plan
Physical Exam
General: Not in acute distress
HEENT: Moist mucous membranes
Respiratory: Clear to Auscultation Bilaterally
Cardiac: S1/S2 and Regular Rhythm
GI: Soft, Non Tender, Non Distended and Normal Bowel Sounds
Musculoskeletal: No Cyanosis and No Edema
Neuro: AAO x 3 and Nonfocal/grossly intact
Assessment/Plan
84 y/o male with PMH significant for ASCVD, prostate cancer and mild dementia who presented to [facility] ED complaining of weakness and lightheadedness. Patient stated that he has had intermittent lightheadedness and unsteady gait for quite some time. He
stated that he had been hospitalized multiple times with similar complaints. His most recent hospitalization was September 2024. He reports that he stopped all of his medications 'months ago' as he thought they might be contributing to his
lightheadedness. His symptoms have only progressed since that time. On 04/10/25, patient stated that he felt extremely lightheaded and was unable to stand or walk unassisted. His called 911. Patient stated that he laid down to wait for EMS
and he started to feel improved while lying flat.
Lightheadedness
Chronic Ambulatory Dysfunction
- Symptoms from high blood pressure?
- Orthostatic vital signs negative
- PT / OT evaluations.
- Echo similar to previous echo in August 2024 showed mildly reduced left ventricular systolic function. Left ventricular ejection fraction is 45-50%. Global hypokinesis. Mild to moderate left ventricular hypertrophy. Mild to moderate aortic
regurgitation.
- Consider long distance operator placement options.
- Compliance with medications may improve his symptoms.
ASCVD
- Stable. Denies chest pain, dyspnea, etc.
- Initial troponin mildly elevated - but decreased from prior values.
- EKG with non-specific T wave changes compared to prior tracings.
- Resume CV med regimen including ASA, statin, metoprolol.
- Follow troponin to peak.
- Echo as noted above.
Benign Hypertension
- Uncontrolled secondary to med non-compliance.
- No meds x months according to patient.
- Resume metoprolol and nifedipine with holding parameters.
- If positive orthostatic signs / symptoms - consider addition of midodrine for postural hypotension.
DM-II
- Not compliant with medications.
- Restart basal insulin.
- Continue to hold oral medications for now.
- Follow glucose and cover with SSI as needed.
- Update A1C.
CKD III
- Stable. Renal function is at / near known baseline.
- Follow for any changes.
Senile Dementia
- Stable. Patient oriented and able to provide reliable history.
- Monitor for any acute delirium / agitation / etc during stay.
DVT Prophylaxis: Subcut Heparin
Code Status: DNR
Anticipated Discharge: 24 - 48 hours
Subjective/Interval History
-
Date of Service: April 11, 2025
Patient was seen and examined. He denied any chest pain, abdominal pain, shortness of breath or any other symptoms or complaints.
Objective Data
-
Labs:
Laboratory Results
04/11/25 04/11/25
04:04 04:05
WBC 5.6
Hgb 12.7 L
Hct 36.8 L
Plt Count 164
Sodium 139
Potassium 3.7
Chloride 109 H
Carbon Dioxide 26
BUN 22 H
Creatinine 1.1
Glucose 127 H
Calcium 8.8
Vital Signs:
Vital Signs
Temp Pulse Resp BP Pulse Ox
98.7 F 73 18 160/70 99
04/11/25 07:18 04/11/25 07:18 04/11/25 07:18 04/11/25 07:18 04/11/25 07:18
I&O
04/10/25 04/11/25 04/12/25
06:59 06:59 06:59
Output Total 175 / 175
Balance -175 / -175
[2025-04-11] MEDS: NOVOLOG FLEXPEN-LOW RESISTANCE SC (08:43)
[2025-04-11] MEDS: PROCARDIA XL (EXTENDED RELEASE) 60 MG PO (08:44)
[2025-04-11] MEDS: LOPRESSOR 25 MG PO ×2 (08:45→21:01)
[2025-04-11] MEDS: ASPIR LOW (ENTERIC COATED) 81 MG PO (08:45)
[2025-04-11] MEDS: HEPARIN 5000 UNITS SC ×2 (08:45→20:57)
[2025-04-11 08:53] LABS: Glycohemoglobin (HgbA1c) 8.3 % (4.0-5.6)
[2025-04-11 08:54] LABS: Troponin I 0.057 ng/ml
[2025-04-11 12:11] LABS: Glucose - Point of Care 258 mg/dl (70-99)
[2025-04-11] MEDS: NOVOLOG FLEXPEN-LOW RESISTANCE 3 UNITS SC (12:44)
[2025-04-11 16:30] LABS: Glucose - Point of Care 232 mg/dl (70-99)
[2025-04-11] MEDS: NOVOLOG FLEXPEN-LOW RESISTANCE 2 UNITS SC (16:34)
--- NOTE | 2025-04-11 17:24 | CM ---
Alert awake oriented patient who lives with his Crissy who lives in a 1 story home with 1 step to enter. He is independent in all activities of daily living.He was offered VN he declined need.He uses walker.VÁSQUEZ LETTER REVIEWED SIGNED ON CHART.
No VN hx / No SNF history
Pharmacy [facility]
PCP DR Jeff
PLAN Home Declined VN
[2025-04-11] MEDS: CRESTOR 10 MG PO (17:26)
[2025-04-11] MEDS: PLAVIX 75 MG PO (18:28)
[2025-04-11 19:24] LABS: Troponin I 0.037 ng/ml
[2025-04-11 21:22] LABS: Glucose - Point of Care 171 mg/dl (70-99)
[2025-04-11] MEDS: LANTUS 0.08 UNITS SC (22:27)
[2025-04-12 01:42] LABS: Troponin I 0.051 ng/ml
[2025-04-12 03:05] VITALS: BP 142/61
[2025-04-12 06:00] VITALS: BMI 23.1
[2025-04-12] MEDS: SYNTHROID 50 MCG PO (06:11)
[2025-04-12 07:06] LABS: Hematocrit 36.0 % (39.0-52.0); Hemoglobin 12.7 g/dL (13.0-18.0); Mean Corp Hgb Conc. 35.3 g/dL (33.0-37.0); Mean Corpuscular Volume 92.3 fL (80.0-94.0); Platelet Count 177 10^3/uL (130-400); Red Cell Dist. Width 12.5 % (11.5-14.5)
[2025-04-12 07:28] LABS: Blood Urea Nitrogen 25 mg/dl (9-20); Calcium 8.8 mg/dl (8.4-10.2); Carbon Dioxide 27 mmol/L (22-30); Chloride 110 mmol/L (98-107); Estimated Creatinine Clearance 47 ml/min; Glucose 99 mg/dl (70-99); Magnesium 2.1 mg/dl (1.6-2.3); Potassium 3.5 mmol/L (3.5-5.1); Sodium 139 mmol/L (135-145); eGFR > 60.00
[2025-04-12 07:43] LABS: Troponin I 0.047 ng/ml
[2025-04-12 08:02] VITALS: BP 154/51
--- NOTE | 2025-04-12 08:11 | W.PN.HOSP.TC ---
Today's Communication/Plan
-
Discharge today
Assessment / Plan
Assessment / Plan
Physical Exam
General: Not in acute distress
HEENT: Moist mucous membranes
Respiratory: Clear to Auscultation Bilaterally
Cardiac: S1/S2 and Regular Rhythm
GI: Soft, Non Tender, Non Distended and Normal Bowel Sounds
Musculoskeletal: No Cyanosis and No Edema
Neuro: AAO x 3 and Nonfocal/grossly intact
Assessment/Plan
84 y/o male with PMH significant for ASCVD, prostate cancer and mild dementia who presented to [facility] ED complaining of weakness and questionable lightheadedness. Patient stated that he has had intermittent possible lightheadedness and unsteady gait
for quite some time. He stated that he had been hospitalized multiple times with similar complaints. His most recent hospitalization was September 2024. He reports that he stopped all of his medications 'months ago' as he thought they might be
contributing to his lightheadedness. His symptoms have only progressed since that time. On 04/10/25, patient stated that he felt extremely lightheaded and was unable to stand or walk unassisted. His called 911. Patient stated that he laid
down to wait for EMS and he started to feel improved while lying flat.
Presentation on 04/10/2025 with lightheaded?/dizziness hard to describe by patient, acute on chronic ambulatory dysfunction
Lightheadedness
Chronic Ambulatory Dysfunction with history of falls
Noncompliance with medication
- Symptoms from high blood pressure?
- Orthostatic vital signs negative but patient did have 13 mmHg drop in systolic BP from supine to standing
- Change positions slowly, utilize compression stockings
- PT / OT evaluations
- Echo similar to previous echo in August 2024 showed mildly reduced left ventricular systolic function. Left ventricular ejection fraction is 45-50%. Global hypokinesis. Mild to moderate left ventricular hypertrophy. Mild to
moderate aortic regurgitation.
- Consider long term care phlebotomist placement options.
- Compliance with medications may improve his symptoms.
Bradycardia
-Can contribute to patient's dizziness feeling
-Reduce Lopressor to 12.5 mg twice a day (hold for heart rate less than 55 bpm)
Coronary artery disease with history of stents
- Stable. Denies chest pain, dyspnea, etc.
- Continue CV med regimen including Aspirin, Plavix, Lopressor, nifedipine and rosuvastatin.
- Troponins elevated but flat. EKGs noted.
- Echo as noted above.
- Per cardiology, given patient's dementia no plans to pursue ischemic evaluation, but continue with aggressive medical therapy
- Follow-up with outpatient telephone recorder
Uncontrolled Hypertension
- Uncontrolled secondary to med non-compliance.
- No meds x months according to patient.
- Resume metoprolol and nifedipine with holding parameters.
- If positive orthostatic signs / symptoms - consider addition of midodrine for postural hypotension.
Hyperlipidemia
Right bundle branch block/First-degree AV delay
DM-II
- Not compliant with medications.
- Continue basal insulin.
- Continue to hold oral medications for now.
- Follow glucose and cover with SSI as needed.
- Update A1C 8.3%
- Diabetic, carb-controlled diet
CKD III
- Stable. Renal function is at / near known baseline.
- Follow for any changes.
Hypothyroidism
-Continue Levothyroxine
Elevated Troponin
Senile Dementia
- Stable. Patient oriented and able to provide reliable history.
- Monitor for any acute delirium / agitation / etc during stay.
History of Polymicrobial Urinary Tract Infections
History of Prostate Cancer/TURP
DVT Prophylaxis: Subcutaneous Heparin
Code Status: DNR
More than 30 minutes spent in discharge including
Final examination of the patient
Summarizing hospital stay
Instructions for continuing care to all relevant caregivers
Preparation of discharge records, prescriptions, and referral forms
Total time spent (in minutes): 41
Anticipated Discharge: Today
Subjective/Interval History
-
Date of Service: April 12, 2025
Patient was seen and examined. He reported some on and off dizziness that does not feel like room-spinning or lightheadedness, but he can function despite the dizziness, can function fine, he said.
Objective Data
-
Labs:
Laboratory Results
04/12/25 04/12/25
06:10 06:11
WBC 5.8
Hgb 12.7 L
Hct 36.0 L
Plt Count 177
Sodium 139
Potassium 3.5
Chloride 110 H
Carbon Dioxide 27
BUN 25 H
Creatinine 1.1
Glucose 99
Calcium 8.8
Vital Signs:
Vital Signs
Temp Pulse Resp BP Pulse Ox
97.7 F 48 14 154/51 99
04/12/25 08:02 04/12/25 08:02 04/12/25 08:02 04/12/25 08:02 04/12/25 08:02
I&O
04/11/25 04/12/25 04/13/25
06:59 06:59 06:59
Intake Total 900 / 900
Output Total 175 / 175 300 / 300
Balance -175 / -175 600 / 600
[2025-04-12] MEDS: NOVOLOG FLEXPEN-LOW RESISTANCE SC (08:42)
[2025-04-12] MEDS: PROCARDIA XL (EXTENDED RELEASE) 60 MG PO (08:42)
[2025-04-12 08:43] LABS: Glucose - Point of Care 104 mg/dl (70-99)
[2025-04-12] MEDS: HEPARIN 5000 UNITS SC (08:43)
[2025-04-12] MEDS: LOPRESSOR PO (08:43)
[2025-04-12] MEDS: ASPIR LOW (ENTERIC COATED) 81 MG PO (08:43)
[2025-04-12] MEDS: PLAVIX 75 MG PO (08:43)
[2025-04-12 09:51] VITALS: BP 127/51; BP 128/60; BP 140/56
[2025-04-12 11:03] VITALS: BP 124/54
[2025-04-12 11:32] LABS: Glucose - Point of Care 182 mg/dl (70-99)
[2025-04-12] MEDS: NOVOLOG FLEXPEN-LOW RESISTANCE 1 UNITS SC (11:51)
--- NOTE | 2025-04-12 11:57 | CON.CAR ---
Addendum entered and electronically signed by Pat De La Fuente MD 04/12/25 18:45:
I saw and examined the patient.
The Grapple Skidder Operator's note was reviewed and I agree with the note.
Comment: Briefly patient is 84-year-old gentleman with past medical history significant for coronary artery disease status post multiple stents, hypertension, hyperlipidemia, type 2 diabetes mellitus, chronic right bundle branch block with
first-degree AV block, ambulatory dysfunction and concern for possible mild dementia who presented to the emergency room with weakness and lightheadedness and unsteady gait. He denied any ongoing or recent complaints of chest discomfort or
shortness of breath. No palpitations or syncope. Troponins were checked in the setting which were mildly elevated and overall flat at 0.039 with peak at 0.057. ECG did not show any acute ischemic changes.
Vital signs and lab work reviewed. On exam patient is an elderly gentleman out of bed into a chair in no acute distress, no JVD, no carotid bruit, lungs are clear to auscultation bilaterally, bradycardic with normal S1 and S2, no murmurs, rubs or
gallops, abdomen is soft, nontender, nondistended with active bowel sounds, warm extremities without significant edema.
Recommendations:
1. In the setting of no active cardiac complaints and no evidence of syncope with troponins not consistent with ACS, no indication for heart catheterization as questioned.
2. Patient does not describe any recent or ongoing cardiac complaints to warrant any ischemic workup for now.
3. In the setting of ongoing bradycardia with right bundle branch block and first-degree AV block, consideration for outpatient monitoring by outpatient baton teacher especially with intermittent episodes of lightheadedness.
4. Agree with reducing beta-suma dose in the meantime.
5. We will sign off from a cardiac standpoint. Patient should follow-up with his outpatient baton teacher.
Pat De La Fuente MD, [facility], [facility]
Original Note:
Consultation
Consultation Request
Date/Time Consultation Requested: 04/12/2025
Date/Time Consultation Performed: 04/12/2025
Requesting Provider: Dr. Garrett
Performing Provider: Liseth Arteaga PA-C for Dr. De La Fuente
Reason for Consultation: Abnormal troponin, lightheaded, dizziness
Medical History
-
History of Present Illness:
Cardiology being asked to see patient for elevated troponin and abnormal ECG
Patient is an 84-year-old male with past medical history significant for coronary artery disease, hypertension, hyperlipidemia, type 2 diabetes, hypothyroidism, ambulatory dysfunction and dementia who presented to emergency department 04/10/2025
complaining of weakness and lightheadedness. Patient admits to unsteady gait which has been ongoing. He has been hospitalized several times in the past with similar complaints. Patient reports to noncompliance with taking his medications as he
was felt they were causing side effects and had discontinued them prior to admission. Symptoms persisted and got worse prompting him to come to emergency department. Patient was found to be hypertensive in emergency department. Initial troponin
of 0.039 which peaked at 0.057. EKG showed sinus rhythm with right bundle branch block/first-degree AV block and old inferior infarct.
PMH:
Coronary artery disease with history of stents
Dementia
Right bundle branch block/First-degree AV delay
Hypertension
Hyperlipidemia
Type 2 diabetes
Polymicrobial UTIs
Prostate cancer/TURP
Hypothyroidism
Ambulatory dysfunction with history of falls
Past Medical History
Past Medical History: Other (See HPI)
Past Surgical History: Appendectomy, Cardiac (Coronary stents x 2), Orthopedic (Laminectomy, right meniscal repair, spinal fusion) and Urological (Prostatectomy/TURP)
Social History
Tobacco: Non-Smoker
Alcohol: None
Personal:
Living: With Family
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
Family History
Family History: Hypertension
Allergies / Home Medications
Allergy/AdvReac Type Severity Reaction Status Date / Time
No Known Allergies Allergy Verified 04/10/25 11:36
�Medication �Instructions �Recorded �Confirmed �Type
glimepiride 2 mg tablet 2 mg PO DAILY Diabetes 09/05/20 04/10/25 History
metoprolol tartrate 25 mg tablet 25 mg PO BID Blood pressure 09/05/20 04/10/25 History
rosuvastatin 10 mg tablet 10 mg PO QPM High cholesterol 09/05/20 04/10/25 History
aspirin 81 mg tablet,delayed 81 mg PO DAILY #30 tabs 09/28/24 04/10/25 Rx
release
clopidogrel 75 mg tablet 75 mg PO DAILY #30 tabs 09/28/24 04/10/25 Rx
nifedipine 60 mg tablet,extended 60 mg PO DAILY Heart 09/28/24 04/10/25 Rx
release 24 hr Disease/Condition #30 tabs
insulin glargine 100 unit/mL (3 8 unit SC DAILY Diabetes 04/10/25 04/10/25 History
mL) subcutaneous pen (Lantus
Solostar U-100 Insulin)
levothyroxine 50 mcg tablet 50 mcg PO DAILY Thyroid 04/10/25 04/10/25 History
metformin 500 mg tablet 500 mg PO TID Diabetes 04/10/25 04/10/25 History
multivit,Ca,min-iron 8 mg-folic 1 tab PO DAILY Supplement 04/10/25 04/10/25 History
acid 200 mcg-lycopene 600 mcg
tablet (Centrum Men)
Review of Systems
-
History Source: Patient, Family and Coordinating Provider
All other systems: Negative unless noted
Physical Exam
Vital Signs
Temp Pulse Resp BP Pulse Ox
97.5 F 70 16 124/54 100
04/12/25 11:03 04/12/25 11:03 04/12/25 11:03 04/12/25 11:03 04/12/25 11:03
GEN: No distress, awake, Ox3, sitting in chair eating lunch
HEENT: supple, anicteric, mmm
LUNGS: CTA, no wheezes/rales
CV: Reg bradycardic, S1/S2,no murmur, rub or gallop
ABD: soft, BS+, NT/ND
EXT: No edema, clubbing or cyanosis
NEURO: Somewhat poor historian otherwise nonfocal
SKIN: No rash, warm, dry, pink
Lab Results
04/12/25 06:11
04/12/25 06:10
Troponin I 0.047 ng/ml H* 04/12/25 06:10
Impression / Plan
-
Family Physician: Alex Morejon
Rail Car Repair Carman: Neo Ricardo
Impression:
Presents 04/10/2025 with lightheaded/dizziness, acute on chronic ambulatory dysfunction
Noncompliance with medication
Elevated troponin, peak 0.057
Abnormal EKG
Uncontrolled hypertension
Coronary artery disease with history of stents
Dementia
Right bundle branch block/First-degree AV delay
Hypertension
Hyperlipidemia
Type 2 diabetes
Polymicrobial UTIs
Prostate cancer/TURP
Hypothyroidism
Ambulatory dysfunction with history of falls
Echo 04/11/2025: EF 45 to 50%. Global hypokinesis. Mild to moderate LVH with septum measuring 1.4 cm. Stage II DD. Mild MR. Mild to moderate AI.
Echo 09/27/2024: EF 45 to 50%. Global hypokinesis. Concentric LVH. Mild AI.
Plan:
-Presents 04/10/2025 with lightheaded/dizziness, acute on chronic ambulatory dysfunction. Patient admits to noncompliance with taking medication and discontinued outpatient pills prior to admission with no improvement of symptoms.
-Noted to be hypertensive on arrival. Patient now back on Lopressor, nifedipine with improvement of blood pressure
-Orthostatic vitals with 13 mmhg drop of blood pressure from supine to standing. Would change positions slowly, consider utilizing compression stockings
-Elevated troponin, peak 0.057. Occurred in setting of noncompliance with medication and hypertension. Numbers are similar to prior admissions. Patient denies chest pain. Suspect nonischemic myocardial injury.
- Abnormal EKG with right bundle branch block, left posterior fascicular block. When compared to prior EKGs from admission in September 2023 EKGs are similar
- Echocardiogram this admission with stable ejection fraction of 45 to 50% and global hypokinesis and mild valvular disease.
- Given patient's dementia would not pursue ischemic evaluation and continue with aggressive medical therapy. Patient has since been resumed on prior cardiac medications including aspirin, Plavix, Lopressor, nifedipine and rosuvastatin.
-Heart rates are noted to be bradycardic. Patient was given 3 doses of Lopressor but was held on morning of 04/12/2025 due to bradycardia. Reduce Lopressor to 12.5 mg twice a day given intermittent bradycardia with hold parameter for heart rate
less than 55
- Patient should follow-up with outpatient baton teacher with the being back on medication. May benefit from wearing outpatient monitor
- PT/OT consultations appreciated
HPI 04/12/2025:
Cardiology being asked to see patient for elevated troponin and abnormal ECG
Patient is an 84-year-old male with past medical history significant for coronary artery disease, hypertension, hyperlipidemia, type 2 diabetes, hypothyroidism, ambulatory dysfunction and dementia who presented to emergency department 04/10/2025
complaining of weakness and lightheadedness. Patient admits to unsteady gait which has been ongoing. He has been hospitalized several times in the past with similar complaints. Patient reports to noncompliance with taking his medications as he
was felt they were causing side effects and had discontinued them prior to admission. Symptoms persisted and got worse prompting him to come to emergency department. Patient was found to be hypertensive in emergency department. Initial troponin
of 0.039 which peaked at 0.057. EKG showed sinus rhythm with right bundle branch block/first-degree AV block and old inferior infarct.
Data Reviewed
-
EKG: Report Reviewed by me, Discussed with Physician, Discussed with Patient and Discussed with Family
CT Scan: Report Reviewed by me, Discussed with Physician, Discussed with Patient and Discussed with Family
Medical Tests (Nuc Med, Echo etc): Report Reviewed by me, Discussed with Physician, Discussed with Patient and Discussed with Family
Labs: Labs Reviewed by me, Discussed with Physician, Discussed with Patient and Discussed with Family
Old Records: Reviewed
[2025-04-12 13:11] LABS: Troponin I 0.044 ng/ml
--- NOTE | 2025-04-12 15:14 | PTCARENOTE ---
Crissy made aware of pt discharge. per son to come around 1730 to transport pt home.
[2025-04-12 15:50] VITALS: BP 130/69
--- NOTE | 2025-04-12 16:21 | CM ---
MD entered order for discharge .
Pt agrees with discharge.Offered VN he declined need.
Spoke with Crissy she said that son Evangelista and his will pick him up and drive him home.
PLAN Home no needs
[2025-04-12 16:38] LABS: Glucose - Point of Care 213 mg/dl (70-99)
[2025-04-12] MEDS: CRESTOR 10 MG PO (16:50)
[2025-04-12] MEDS: NOVOLOG FLEXPEN-LOW RESISTANCE 2 UNITS SC (16:50)
--- NOTE | 2025-04-12 18:26 | PTCARENOTE ---
discharge instructions read aloud to rosie Naidu in pt room. pt taken down to main entrance via wheelchair with staff.
--- NOTE | 2025-04-13 22:11 | W.DCSUMMARY ---
Discharge Summary
Discharge Data
Date of Admission: 04/10/25
Date of Discharge: 04/12/25
Total time spent discharging patient (in min): 41
-
Pending Results: No
Hospital Course
84 y/o male who presented with weakness and lightheadedness. Patient was reportedly not taking his medications including his antihypertensive medications at home. Troponin was elevated but without significant increase. Patient had bradycardia with
question of possibly symptomatic bradycardia therefore cardiology was consulted. Patient's beta suma dose was reduced, and cardiology mentioned that in the setting of ongoing bradycardia with right bundle branch block and first-degree AV block,
there should be consideration for outpatient monitoring by outpatient lens gauger especially with intermittent episodes of lightheadedness. Patient was stable for discharge with close outpatient follow-up.
Discharge Plan
-
Patient Disposition: Home (Routine Discharge)
Discharge Diagnosis/Procedures: Presentation on 04/10/2025 with lightheaded?/dizziness hard to describe by patient, acute on chronic ambulatory dysfunction
Lightheadedness
Chronic Ambulatory Dysfunction with history of falls
Noncompliance with medication
Bradycardia
Coronary artery disease with history of stents
Uncontrolled Hypertension
Hyperlipidemia
Right bundle branch block/First-degree Atrioventricular delay
Type 2 Diabetes Mellitus
Chronic Kidney Disease Stage 3
Hypothyroidism
Elevated Troponin
Senile Dementia
History of Polymicrobial Urinary Tract Infections
History of Prostate Cancer/TURP
Condition: Good
Diet: Low Fat, Low Cholesterol, Low Sodium and Diabetic, Carb Controlled
Activity: As tolerated
Blood Work: CBC, BMP, Magnesium, Vitamin B12, Vitamin D and TSH with your primary care provider in 2 to 3 days
Activity Restrictions/Additional Instructions:
Change positions slowly (e.g. lying to sitting to standing); utilize compression stockings
Please follow-up with your outpatient lens gauger in 1 to 2 weeks -- you also may benefit from getting an outpatient personnel supervisor from your outpatient lens gauger.
Instructions: Preventing falls in adults
Referrals:
Alex Morejon MD [Family Provider, Internal Medicine] - in less than 1 week
Referral Note: Hospitalization Follow-Up
Additional Discharge Medication Instructions: Your Metoprolol Tartrate has been reduced to 12.5 mg twice a day (hold the Metoprolol for heart rate less than 55 beats per minute) -- since your heart rate was low at times, and to help you with your
dizziness symptoms which can happen from low heart rate.
Prescriptions:
New
metoprolol tartrate 25 mg Tablet
12.5 mg PO BID Qty: 60 1RF
Continued
rosuvastatin 10 MG tablet
10 mg PO QPM
clopidogrel 75 MG tablet
75 mg PO DAILY Qty: 30 0RF
aspirin 81 MG tablet,delayed release (DR/EC)
81 mg PO DAILY Qty: 30 0RF
nifedipine 60 MG tablet extended release 24hr
60 mg PO DAILY Qty: 30 0RF
levothyroxine 50 mcg tablet
50 mcg PO DAILY
Patient Comments:
2 bottles sent with pt filled 10/23 and 01/21 both looked untouched
insulin glargine [Lantus Solostar U-100 Insulin] 100 unit/mL (3 mL) insulin pen
8 unit SC DAILY
Centrum Men 8 mg iron- 200 mcg-600 mcg Tablet
1 tab PO DAILY
metformin 500 MG tablet
500 mg PO TID
Held
glimepiride 2 MG tablet
2 mg PO DAILY
Hold Instructions: Resume on 06/01/25. Do not resume this medication until and unless your primary care provider advises you to do so.
Discontinued
metoprolol tartrate 25 MG tablet
25 mg PO BID
Discharge Orders:
Discharge Patient (As Directed); Ordered 04/12/25
Ordered By: Alen Garrett
Discharge Date and Time
Discharge Date/Time: 04/12/25 18:29
Print Language: ROMANIAN
== END 2025-04-12 18:29 | disposition home or self-care (01) ==
LOC: 4 EAST ACU 20:00
PROVIDERS: Emergency Medicine; Nurse Practitioner; ADMITTING PHYSICIAN Hospitalist; ATTENDING PHYSICIAN Hospitalist; EMERGENCY PHYSICIAN Emergency Medicine; FAMILY PHYSICIAN Internal Medicine; OTHER PHYSICIAN Internal Medicine Interventional Cardiology
DX: R42 Dizziness and giddiness (principal); R00.1 Bradycardia, unspecified; R79.89 Other specified abnormal findings of blood chemistry; I45.2 Bifascicular block; R29.6 Repeated falls; I25.10 Atherosclerotic heart disease of native coronary artery without angina pectoris; E78.00 Pure hypercholesterolemia, unspecified; E11.22 Type 2 diabetes mellitus with diabetic chronic kidney disease; E03.9 Hypothyroidism, unspecified; F03.90 Unspecified dementia, unspecified severity, without behavioral disturbance, psychotic disturbance, mood disturbance, and anxiety; N18.30 Chronic kidney disease, stage 3 unspecified; N40.0 Benign prostatic hyperplasia without lower urinary tract symptoms; Z66 Do not resuscitate; Z79.02 Long term (current) use of antithrombotics/antiplatelets; Z79.4 Long term (current) use of insulin; Z79.899 Other long term (current) drug therapy; Z82.49 Family history of ischemic heart disease and other diseases of the circulatory system; Z85.46 Personal history of malignant neoplasm of prostate; Z87.440 Personal history of urinary (tract) infections; Z91.148 Patient's other noncompliance with medication regimen for other reason; Z91.81 History of falling; Z95.5 Presence of coronary angioplasty implant and graft; Z98.1 Arthrodesis status
CPT/HCPCS: 70450; 80048; 80053; 80061; 81003; 82962; 83036; 83735; 84443; 84484; 85025; 85027; 93005; 93306; 97162; 97166; 97535; 99285; G0378

== ENCOUNTER 2025-04-19 21:14 | Inpatient (IN) | payer OTHER, SELFPAY ==
[2025-04-19] VITALS (29 sets, daily range): BP systolic 123–187; BP diastolic 51–107; BMI 23.2
[2025-04-19 17:22] LABS: Glucose - Point of Care 147 mg/dl (70-99)
[2025-04-19] MEDS: AMIDATE 20 MG 15 MG IV (17:25)
[2025-04-19] MEDS: ANECTINE 100 MG IV (17:26)
[2025-04-19 17:34] LABS: Hematocrit 35.7 % (39.0-52.0); Hemoglobin 12.7 g/dL (13.0-18.0); Mean Corp Hgb Conc. 35.6 g/dL (33.0-37.0); Mean Corpuscular Volume 90.8 fL (80.0-94.0); Nucleated Red Blood Cells % 0 % (-); Platelet Count 191 10^3/uL (130-400); Red Cell Dist. Width 12.6 % (11.5-14.5)
[2025-04-19] MEDS: SUBLIMAZE 70 MCG IV (17:37)
[2025-04-19] MEDS: DIPRIVAN 100 IV (17:41)
--- NOTE | 2025-04-19 17:44 | ED.GENMED ---
History of Present Illness
General
Chief Complaint: Unresponsive
Time Seen by Provider: 04/19/25 17:25
History of Present Illness
History of Present Illness:
Note:
CHIEF COMPLAINT(S)
Altered mental status.
HISTORY OF PRESENT ILLNESS
The patient is an 84-year-old male who presented with altered mental status. Per EMS, the patients noticed he was not acting appropriately throughout the day, though an exact time of onset could not be determined. EMS reported the patient
became minimally responsive, and upon their arrival, his blood glucose level was 29 mg/dL. Dextrose 10% (D10) was administered, resulting in a repeat blood glucose level of approximately 200 mg/dL. Despite correction of hypoglycemia, the patient�s
mental status remained poor, described as obtunded with minimal response to sternal rub. His pupils were noted to be sluggish bilaterally, and he was nonverbal upon arrival at the emergency department. Due to persistent poor mental status, the
patient was pre-oxygenated and subsequently intubated successfully in one attempt using a GlideScope.
ADDITIONAL HISTORY OBTAINED FROM SOURCES OTHER THAN THE PATIENT
According to EMS, the patient was minimally responsive upon their arrival, and his initial blood glucose was critically low at 29 mg/dL. After administration of Dextrose 10%, his blood glucose improved to around 200 mg/dL, but his mental status did
not improve. The patient was noted to be obtunded with sluggish pupils and minimal response.
PHYSICAL EXAM
General: Obtunded, appears critically ill
Skin: Warm, dry.
Head: Normocephalic, atraumatic.
Neck: Supple, trachea midline.
Eye Ears, nose, mouth and throat: Oral mucosa moist, pupils sluggish bilaterally, normal size.
Cardiovascular: Normal peripheral perfusion, no edema.
Respiratory: Increased respiratory effort, tachypneic, coarse breath sounds bilaterally
Gastrointestinal: Increased abdominal musculature work of breathing, no definite tenderness, nondistended
Musculoskeletal: No obvious deformity
Neurological: Obtunded, nonverbal, no response to sternal rub, keeps eyes closed.
Psychiatric: Unable to assess mood and affect due to altered mental status.
PLAN
1. Intubation performed for airway protection.
2. Extensive blood workup including glucose monitoring.
3. Obtain CT of the brain, portable chest X-ray, electrocardiogram (EKG), and blood cultures to assess for any contributing factors.
DIFFERENTIAL DIAGNOSIS
The differential diagnosis includes, in no particular order and is not limited to:
1. Hypoglycemia
2. Stroke or transient ischemic attack
3. Intracranial hemorrhage
4. Infection or sepsis
5. Electrolyte imbalance
6. Medication toxicity or adverse effects
7. Myocardial infarction
8. Seizure or postictal state
9. Hypoxemia or respiratory failure
10. Neurodegenerative disorder exacerbation
REVIEW OF OLD RECORDS
- I reviewed records, the patient was admitted 1 week ago with weakness thought possibly related to bradycardia and beta-suma was reduced.
RADIOLOGY
- Initial chest x-ray after intubation showed tube to deep and this was pulled back 2.5 cm I personally viewed CT imaging and agree with radiologist that there is no acute intracranial abnormality. CT of the abdomen pelvis does show density at the
right base concerning for pneumonia.
EKG
- Sinus 52, leftward axis deviation, lateral T wave abnormality
LABS
- Urinalysis shows no sign of infection, total bili 1.9 which is near baseline, electrolytes relatively unremarkable, BUN 39, creatinine 1.3, VBG shows a pH of 7.47, white count 10.6
UPDATE
-SUMMARY OF ENCOUNTER
The patient, an 84-year-old male, was seen in the emergency department for altered mental status. Initially, he was virtually unresponsive with minimal neurological response despite attempts to elicit pain. EMS reported critically low blood glucose,
which, when corrected, did not resolve his mental status. Consequently, the patient was intubated to protect the airway. Despite not being significantly sedated, he remained obtunded. A fever was noted, and he was administered rectal acetaminophen.
Bloodwork, including troponin, was ordered due to a history of elevated cardiac markers. A CT scan of the brain and abdomen showed no dramatic findings.
DISPOSITION
Admit
ASSESSMENT
Persistent altered mental status possibly due to underlying infection, hypoglycemia, or other systemic condition not yet identified. Patient is intubated with supportive ventilation.
EMERGENCY TREATMENTS ADMINISTERED
Rectal acetaminophen was given to manage the fever. Patient was placed on a ventilator following intubation.
MANAGEMENT OF THE PATIENTS CARE WAS DISCUSSED WITH
Hospitalist will be contacted for further management and admission.
PLAN
Patient is to be admitted for further evaluation and management. Initiation of empiric antibiotics is planned due to the presence of fever, while awaiting further diagnostic information. Continuous monitoring and supportive care will be continued,
with planned communication with the hospitalist for admission.
INDEPENDENT REVIEW OF LABS AND INTERPRETATION OF TESTS
- My independent review of the CT scan indicates no dramatic abnormalities in the brain or abdomen.
MEDICATION RECONCILIATION
Acetaminophen was administered rectally to manage the fever. Sedation medications such as propofol were considered but not used at a significant level.
MEDICAL DECISION MAKING
- Complexity of Data Reviewed: Chronic conditions affecting care include dementia and chronic kidney disease. Differential diagnosis includes hypoglycemia, stroke, intracranial hemorrhage, infection, electrolyte imbalance, medication toxicity,
myocardial infarction, seizure, hypoxemia, and neurodegenerative disorder exacerbation.
- Data:
Category 1: Input from independent historian - EMS reported low blood glucose and subsequent correction with dextrose, confirming continued poor mental status.
Category 2: My independent interpretation of CT scans of the brain and abdomen showed no dramatic findings other than suggestion of pneumonia on the right side at the base.
Category 3: Discussion of management with the hospitalist for admission and further evaluation.
DIAGNOSIS
1. Altered mental status, unspecified (R41.82)
2. Hypoglycemia, unspecified (E16.2)
3. Fever likely due to pneumonia
Given the associated fever, I have given empiric antibiotics. Family states that he does have dementia however it is unclear to me as to how severe it is. However, vital signs are not consistent with sepsis. I spoke to the at bedside who
states that he should be a full code.
Past History
Past History
ED Past Medical History: CAD, Cancer (Prostate CA), HTN, Hypercholesterolemia, IDDM and Other (Back pain, Slight Dementia but able to answer questions)
ED Past Surgical History: Appendectomy, Cardiac (Stents X 2), Orthopedic (Laminectomy, Right Menisectomy, Spinal fusion, revision or spinal incision X 2) and Urological (TURP)
Social History
Tobacco: Non-smoker
Alcohol: None
Drug: None
Personal:
Living: with family
Employment: Retired
Family History
Family History: Other (Noncontributory)
Phy Exam
Physical Exam
Physical Exam:
See HPI
Course
Orders/Labs/Results
Orders:
Orders
04/19/25 17:23
Complete Blood Count/With Diff Urgent
Comprehensive Metabolic Panel Urgent
Lactic Acid Urgent
Triglycerides Urgent
Comment: ADD ON
Blood Culture Urgent
NELY Source: Blood/Venous
Specimen Description:
04/19/25 17:24
CT Head W/o Iv Contrast Urgent
Comment:
Reason For Exam: altered mental status
04/19/25 17:25
CT Abd/pelvis Wo Iv Cont Urgent
Comment:
Reason For Exam: vomiting
CR Chest Portable - 1 View Urgent
Comment:
Reason For Exam: intubation
Reason Study Needs to be Portable: Patient Unstable
04/19/25 17:31
Díaz Placement- Treatment ONCE
Reason for insertion: I&O's Critical Care
Etomidate [Amidate 20 mg] 15 mg IV NOW STA
Fentanyl Citrate/Pf [Sublimaze] 50 mcg IV [id number] PRN
Fentanyl Citrate/Pf [Sublimaze] 70 mcg IV NOW STA
Succinylcholine Chloride [Anectine] 100 mg IV NOW STA
04/19/25 17:44
Urinalysis Reflex To Culture Urgent
Date Specimen was Collected: 04/19/25
Time Specimen was Collected: 17:28
Urine Microscopic Reflex Cult Urgent
04/19/25 17:45
FentaNYL 1,000 MCG/100 ML [Sublimaze] 1,000 mcg in 100 ml IV PER PROTOCOL
Indication:: Deep Sedation
Begin Infusion:: Now
Goal:: RASS </= -3, BIS 40-60, ventilator synchrony
Maximum dose in mcg/hr:: 300
Initial Dose in mcg/hr:: 60
Titration Instructions:: Titrate Q30 min until ventilator synchrony, RASS or BIS goal is met.
Titration Instructions:: If RASS >/= -2 or BIS > 60 or ventilator dyssynchrony:
Titration Instructions:: administer bolus dose and increase infusion by 25 mcg/hr.
Titration Instructions:: Administer analgesia bolus dose(s) & titrate analgesia prior to
Titration Instructions:: adjusting sedation.
Over-sedation Instructions:: if BIS < 40 and pt is synchronous with ventilator, decrease infusion by
Over-sedation Instructions:: 25 mcg/hr every 2 hours until BIS = 40-60.
Over-sedation Instructions:: Do not wean infusion to off if patient is receiving a continuous NMBA or
Over-sedation Instructions:: has received a bolus dose of NMBA within the past 3 hours.
Notify provider:: immediately if pt exhibits signs/symptoms of chest wall rigidity,
Notify provider:: hemodynamic instability, or agitation/pain despite maximum dosing.
Additional Instructions:: Patient MUST be mechanically ventilated.
Propofol 1,000,000 Mcg/100 ml [Diprivan] 1,000,000 mcg in 100 ml IV PER PROTOCOL
Indication:: Deep Sedation
Begin Infusion:: Now
Goal:: RASS -3 to -5 or BIS < 60 or ventilator synchrony
Maximum dose in mcg/kg/min:: 50
Initial Dose in mcg/kg/min:: 5
Titration Instructions:: Titrate by 5-10 mcg/kg/min every 5 minutes until RASS -3 to -5 or
Titration Instructions:: BIS < 60 or ventilator synchrony is met.
Titration Instructions:: Administer analgesia bolus dose(s) & titrate analgesia prior to
Titration Instructions:: adjusting sedation.
Taper Instructions:: If RASS is at or below goal for 4 consecutive hours decrease infusion by
Taper Instructions:: 5-10 mcg/kg/min every 2 hours. Do not wean infusion to off if patient is
Taper Instructions:: receiving a continuous NMBA or has received bolus NMBA with the past 3 hrs
Over-sedation Instructions:: If BIS < 40 and synchronous with ventilator decrease infusion by
Over-sedation Instructions:: 5-10 mcg/kg/min every 2 hour until BIS = 40-60.
Notify provider:: immediately if patient exhibits signs/symptoms of propofol-related
Notify provider:: infusion syndrome.
Additional Instructions:: Patient MUST be mechanically ventilated and MUST receive analgesia.
04/19/25 17:55
Add On- LAB Urgent
Tests Added?: VBG
04/19/25 18:01
Venous Blood Gas Urgent
%Oxygen/Room Air: 80
Blood Culture Urgent
NELY Source: Blood/Venous
Specimen Description:
04/19/25 18:04
Add On- LAB Urgent
Tests Added?: Triglycerides
04/19/25 18:07
Acetaminophen [Tylenol/Feverall] 650 mg RECTAL NOW STA
04/19/25 18:10
COVID-19 Antigen Urgent
Source: Nasal Swab
Influenza A+B Rapid Molecular Urgent
NELY Source: Nasal Swab
Specimen Description:
04/19/25 18:55
Troponin I Urgent
04/19/25 18:57
Cefepime HCl [Maxipime] 1,000 mg IV NOW STA
04/19/25 18:58
CT Chest W/o Iv Contrast Urgent
Comment:
Reason For Exam: r/o Infection
04/19/25 19:01
Vancomycin [Vancocin] 1,500 mg 0.9% Sodium Chloride 500 ml [Nss] 500 ml IV NOW
04/19/25 19:18
Sterile Water [Sterile Water For Injection] 10 ml .ROUTE .STK-MED ONE
04/19/25 19:24
CR Chest Portable - 1 View Urgent
Comment:
Reason For Exam: adjusted tube
Reason Study Needs to be Portable: Patient Unstable
04/19/25 20:18
Admit/Transfer Patient As Directed
Co-Sign Provider:
Level of Care: Inpatient admission
Assign to:: ICU
Physician / Group: Reynaldo
Diagnosis: Unresponsive
Reason for Hospitalization: Unresponsive
Expected length of stay greater than two midnights?: Yes
ELOS- Estimated Length of Stay in days: 2
I certify the patient meets the requirements for IP care: Yes
PRN Pain Medication Management As Directed
May give lesser potent ordered pain med per pt: Yes
preference::
Protocol:: Medication orders for pain may be administered in a
manner that supports deferring to patient preference
when the pt is:
- Requesting an ordered lesser potent pain medication.
Least to most potent pain medications are defined
as: acetaminophen < NSAID < tramadol < opioids
(morphine, oxycodone, hydromorphone).
- Requesting a lesser dose of the same medication IF
ORDERED.
- Requesting a less intrusive route of administration
if both routes are prescribed by the provider (PO <
IV).
04/19/25 20:19
Code Status As Directed
Resuscitation Status: Limited DNR
Limited DNR: -No CPR
04/20/25 08:00
Polyethylene Glycol Powder [Miralax] 17 grams TUBE DAILY
04/22/25 06:00
Triglycerides Q3D
Comment: every 72 hours while patient is on propofol
04/25/25 06:00
Triglycerides Q3D
Comment: every 72 hours while patient is on propofol
04/28/25 06:00
Triglycerides Q3D
Comment: every 72 hours while patient is on propofol
Abnormal Lab Results
04/19/25 04/19/25 04/19/25
17:20 17:23 17:44
RBC 3.93 L 10^6/uL
(4.70-6.10)
Hgb 12.7 L g/dL
(13.0-18.0)
Hct 35.7 L %
(39.0-52.0)
MCH 32.3 H pg
(27.0-31.0)
MPV 10.7 H fL
(7.4-10.4)
Absolute Neuts (auto) 9.3 H 10^3/uL
(1.4-6.5)
Absolute Lymphs (auto) 1.0 L 10^3/uL
(1.2-3.4)
Neutrophils % 88.2 H %
(42.2-75.2)
Lymphocytes % 9.1 L %
(20.5-51.1)
VBG pH
VBG pCO2
VBG pO2
BUN 39 H mg/dl
(9-20)
Glucose 123 H mg/dl
(70-99)
Total Bilirubin 1.9 H mg/dl
(0.2-1.3)
Troponin I
Urine Ketones 1+ A
(Negative)
Ur Occult Blood Reflex 2+ A
(Negative)
Urine Albumin (Reflex) 2+ A
(Neg - Trace)
POC Glucose 147 H mg/dl
(70-99)
04/19/25 04/19/25
18:01 18:55
RBC
Hgb
Hct
MCH
MPV
Absolute Neuts (auto)
Absolute Lymphs (auto)
Neutrophils %
Lymphocytes %
VBG pH 7.47 H
(7.32-7.43)
VBG pCO2 33 L mmHg
(35-48)
VBG pO2 241 H mmHg
(30-50)
BUN
Glucose
Total Bilirubin
Troponin I 0.214 H* ng/ml
Urine Ketones
Ur Occult Blood Reflex
Urine Albumin (Reflex)
POC Glucose
04/19/25 17:23
04/19/25 17:23
Vital Signs
Initial and Last Documented VS:
Initial Vital Signs
Pulse Resp Pulse Ox
84 31 100
04/19/25 17:20 04/19/25 17:20 04/19/25 17:20
Last Documented Vital Signs
Temp Pulse Resp BP Pulse Ox
39.5 C H 71 23 154/61 100
04/19/25 18:59 04/19/25 18:30 04/19/25 18:30 04/19/25 18:30 04/19/25 18:30
Procedures
Intubations
Procedure completed by: MdDr. Thomas
Method of Intubation: curved blade
Tube size (cm): 8.0
Placement confirmed by: CXR, capnography and direct visualization
Breath sounds after intubation: equal
Intubation complications: no complications
*Pulse Oximetry
SaO2: 100
Oxygen Mode of Delivery: Non-rebreather mask
Patient hypoxic: yes
*Critical Care Note
Total Time (30-74mins, 75-104mins- exclusive of procedures): 50min
comment:
The patient arrived unresponsive despite improvement initial hypoglycemia. Decision was made to intubate. His vital signs were closely monitored. Coordinated care with hospitalist and international affairs vice president. Placed on antibiotics for presumed pneumonia as
the patient is febrile.
ED Attending Note
-
Portions of this chart may have been created with voice recognition software.� Occasional wrong word or��sound alike� substitutions may have occurred due to the inherent limitations of voice recognition software.
Discharge Plan
Departure
Patient Disposition: Admit
Date of Disposition: 04/19/25
Time of Disposition: 19:21
Presentation/result/management discussed w/ accepting MD/DO: Hospitalist
Discharge Problem:
Pneumonia
Prescriptions:
No Action
glimepiride 2 MG tablet
2 mg PO DAILY
rosuvastatin 10 MG tablet
10 mg PO QPM
clopidogrel 75 MG tablet
75 mg PO DAILY Qty: 30 0RF
aspirin 81 MG tablet,delayed release (DR/EC)
81 mg PO DAILY Qty: 30 0RF
nifedipine 60 MG tablet extended release 24hr
60 mg PO DAILY Qty: 30 0RF
levothyroxine 50 mcg tablet
50 mcg PO DAILY
Patient Comments:
2 bottles sent with pt filled 10/23 and 01/21 both looked untouched
insulin glargine [Lantus Solostar U-100 Insulin] 100 unit/mL (3 mL) insulin pen
8 unit SC DAILY
Centrum Men 8 mg iron- 200 mcg-600 mcg Tablet
1 tab PO DAILY
metformin 500 MG tablet
500 mg PO TID
metoprolol tartrate 25 mg Tablet
12.5 mg PO BID Qty: 60 1RF
Referrals:
UNKNOWN,NO INTERVIEW [Family Provider]
Interventions
Interventions:
*Risk Screen - Suicide Last Done: 04/19/25 17:31
*General Assessment Last Done: 04/19/25 17:31
*Neglect/Abuse Screening Last Done: 04/19/25 17:31
*ED- Fall Risk Assessment Last Done: 04/19/25 17:31
*ED COVID-19 Vaccine History Last Done: 04/19/25 17:31
ED- Neurological Assessment Last Done: 04/19/25 17:32
Discharge Date and Time
Print Language: SLOVAK
[2025-04-19] MEDS: SUBLIMAZE 100 IV (17:52)
[2025-04-19 17:54] LABS: Urine Character Clear (Clear)
[2025-04-19 17:59] LABS: ALT (SGPT) 16 U/L (0-50); AST (SGOT) 31 U/L (17-59); Albumin 3.9 g/dl (3.5-5.0); Alkaline Phosphatase 44 U/L (38-126); Blood Urea Nitrogen 39 mg/dl (9-20); Calcium 9.0 mg/dl (8.4-10.2); Carbon Dioxide 26 mmol/L (22-30); Chloride 104 mmol/L (98-107); Glucose 123 mg/dl (70-99); Potassium 3.7 mmol/L (3.5-5.1); Sodium 136 mmol/L (135-145); Total Protein 6.4 g/dl (6.3-8.2); eGFR 54.17
[2025-04-19 18:03] LABS: Urine Red Blood Cell 0-2 /HPF (0-2); Urine Squamous Cell 0-2 /LPF (Few)
[2025-04-19 18:09] LABS: Venous Blood Gas B.E. 0.9 mmol/L (-4 to +4); Venous Blood Gas O2 Sat % 99.7 %
[2025-04-19] MEDS: TYLENOL/FEVERALL 650 MG RECTAL (18:10)
[2025-04-19 18:16] LABS: Triglycerides 81 mg/dl (10-149)
[2025-04-19 18:55] LABS: COVID-19 Antigen Negative (Negative)
[2025-04-19] MEDS: MAXIPIME 1000 MG IV (19:20)
[2025-04-19] MEDS: VANCOCIN 530 MG IV (19:20)
--- NOTE | 2025-04-19 19:57 | HPS.HSE ---
Family Physician
-
Family Physician: NO INTERVIEW UNKNOWN
Chief Complaint
-
Unresponsive
History of Present Illness
This is a 84-year-old with past medical history of insulin-dependent diabetes, hypothyroid, CAD status post tenting, ischemic cardiomyopathy with a EF of around 45%, CKD stage III,, recently admitted for weakness with persistently elevated troponin
presenting to the emergency department after being found unresponsive.
Cannot obtain history from patient as he is intubated. Per spouse patient has been confused all day. When EMS arrived they noted that he had a blood sugar of 29 and was given D10 and brought to the emergency department. He had agonal respirations
without any pain response. Blood sugar was 200 at arrival. He has remained persistently unresponsive and then intubated in the ED.
According to spouse patient was noncompliant on medications for several months until he was admitted to the hospital last week. At that time was restarted on medications and was sent home on insulin. Patient does not have a glucometer or test
trips at home and they were not checking his blood glucoses at all. They did not check last night and son reports that he received a prescription of 34 units of Lantus. However patient was discharged on 8 units subcutaneous daily. Patient was
giving 35 units of subcutaneous Lantus last night. Before going to bed he was in apparent usual state of health. However he never woke up this morning. Spouse attempted to wake him up all morning and he was unresponsive. By time EMS arrived
blood sugar was 29.
Status post intubation blood pressure was 154/61 with pulse of 71 he had a temperature of 103.1 and is currently satting 100% on 100% FiO2. Chest x-ray shows a right lower lobe infiltrate. CTAP also consistent with a right lower lobe infiltrate.
CT of the head shows no acute interval changes. ECG is nonischemic. Troponin is 0.2. CBC was unremarkable. Electrolytes were normal. BUN and creatinine were 10 and 1.319 from prior. Glucose currently 133.
ABG 7.4 04/20/2024.
UA was unremarkable. LFTs unremarkable.
Medical History
Past Medical History
Past Medical History: Reports Other
Additional Past Medical History:
ASCVD status post PCI/stents x 2
Bifascicular block
Echo September 27, 2024: EF 45-50%, global hypokinesis, mild LVH, mild aortic regurg
Dementia
Noncompliance with medication
Chronic ambulatory dysfunction
Polymicrobial UTIs
Prostate CA/TURP
Gout
IDDM
CKD stage III
Hypertension
BPH
Past Surgical History: Reports Other
Additional Past Surgical History:
Prostatectomy
Appendectomy
PTCA with Stents (multiple)
Cardiac stents x 2
Laminectomy
Right meniscus repair
Spinal fusion with revision
TURP
Social History
Tobacco: Non-smoker
Alcohol: Occasional
Drug: None
Personal:
Living: With Family ( )
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
Family History
Family History: Not pertinent
Allergies / Home Medications
Allergies reflects when Allergies were last updated in [facility].
Home Medications with original date entered in [facility]
Allergy/Medication List:
Allergies
Allergy/AdvReac Type Severity Reaction Status Date / Time
No Known Allergies Allergy Verified 04/10/25 11:36
Home Medications
glimepiride 2 mg tablet 2 mg PO DAILY Diabetes 09/05/20
metoprolol tartrate 25 mg tablet 25 mg PO BID Blood pressure 09/05/20
rosuvastatin 10 mg tablet 10 mg PO QPM High cholesterol 09/05/20
aspirin 81 mg tablet,delayed release 81 mg PO DAILY #30 tabs 09/28/24
clopidogrel 75 mg tablet 75 mg PO DAILY #30 tabs 09/28/24
nifedipine 60 mg tablet,extended release 24 hr 60 mg PO DAILY Heart Disease/Condition #30 tabs 09/28/24
insulin glargine 100 unit/mL (3 mL) subcutaneous pen (Lantus Solostar U-100 Insulin) 8 unit SC DAILY 04/10/25
levothyroxine 50 mcg tablet 50 mcg PO DAILY 04/10/25
metformin 500 mg tablet 500 mg PO TID Diabetes 04/10/25
multivit,Ca,min-iron 8 mg-folic acid 200 mcg-lycopene 600 mcg tablet (Centrum Men) 1 tab PO DAILY 04/10/25
Review of Systems
-
Unable to obtain full review of systems at this time due to: Patient Intubation
Physical Exam
Vital Signs
Vital Signs
Temp Pulse Resp BP Pulse Ox
103.1 F H 71 23 154/61 100
04/19/25 18:59 04/19/25 18:30 04/19/25 18:30 04/19/25 18:30 04/19/25 18:30
Physical Exam
General: Intubated
HEENT: NormoCephalic, Anicteric and Moist mucous membranes
Respiratory: Clear; No Wheezes, Rales or Rhonchi
Cardiac: S1/S2 and Regular Rhythm; No Murmur
GI: Soft and Normal Bowel Sounds
Rectal: Deferred by Provider
Genito-urinary: Díaz
Musculoskeletal: No Clubbing, No Cyanosis and No Edema
Skin: Warm and Dry
Neuro: Sedated
Laboratory Results
-
04/19/25 17:23
04/19/25 17:23
Laboratory Results
Lactic Acid 1.6 mmol/L (0.7-2.0) 04/19/25 17:23
Total Bilirubin 1.9 mg/dl (0.2-1.3) H 04/19/25 17:23
AST 31 U/L (17-59) 04/19/25 17:23
ALT 16 U/L (0-50) 04/19/25 17:23
Alkaline Phosphatase 44 U/L (38-126) 04/19/25 17:23
Data Reviewed
-
Diagnostic Radiology: Image Personally Visualized and interpreted
CT Scan: Report Reviewed by me
Medical Tests (Nuc Med, Echo, EKG etc): Image Personally Visualized and interpreted
Lab Data: Labs Reviewed by me
Old Records: Reviewed
Impression/Plan
-
IMPRESSION:
Is a 84-year-old male with past medical history of insulin-dependent diabetes, hypertension, CAD status post tenting with ischemic cardiomyopathy who presents to the emergency department obtunded in the setting of hypoglycemia. Patient was recently
hospitalized for weakness. At that time was found to be noncompliant with medications for several months and was restarted on his medications. Patient was discharged on insulin and he does not have a glucometer at home nor does he check his blood
glucoses. Son reported that he was given 34 units of Lantus last night when he was actually discharged on 8 units subcu. He was found unresponsive this morning by spouse. When EMS arrived he was found to be hypoglycemic to 39. He was febrile in
the emergency department 213 with a right lower lobe infiltrate. I suspect that this is iatrogenic hypoglycemia with possible aspiration pneumonia as well. He is normotensive and his oxygen saturation is actually quite maintained on 40% FiO2. UA
is negative. COVID and flu are negative.
PLAN:
Respiratory failure -likely secondary to above condition in setting of hypoglycemia. Patient remains unresponsive but has some nonspecific movement at this time. He is sedated on propofol and fentanyl after intubation
-Admit to ICU
-Maintain current vent settings 20/450/40/5 with current oxygen saturation of 100%
-Repeat gas in 1 hour
-ET tube adjusted per ED
- Continue sedation for now, wean tolerated
-[employer] H[employer] Manager consult
Hypoglycemia -2/2 insulin o/d corrected status post D10. Patient remains normoglycemic on initial repeat
- close monitoring q 2 hours, dextrose supplementation as neeed.
-
Pneumonia -fever, right lower lobe infiltrate, suspect aspiration overnight
-Blood cultures have been sent
-IV Vanco Zosyn
-MRSA swab
- neg cov/flu
Med rec
-Continue aspirin, Plavix, levothyroxine
-Hold metformin
NSTEMI - Suspect non-ishemic myocardial injury in setting of infection and obtundation. Chronically elevated troponin
- trend troponin, if rising further start heparin gtt
- asa 300 rectal x 1 now
- continue DAPT
DVT prophylaxis�heparin subcu
CODE STATUS�limited DNR, intubation okay no CPR
[2025-04-19 19:58] LABS: Troponin I 0.214 ng/ml
--- NOTE | 2025-04-19 21:45 | PTCARENOTE ---
Rec'd pt from ER via stretcher on monitor, and vent accomp by CORRECTIONAL SERGEANT, Dip gtt at 5mic- turned off, fent gtt decr to 25mic, pt unresponsive, EMMA sluggish at 2mm, Accu done - result- 18, D50 IV given, repeat accu 51- D50 given, B Radu, TABLET REPAIR aware-
D5/ NS hung at 50ml/hr, to check accu q1h, SR, weak distal pulses, no edema, skin warm, dry, #8 oral ett- 23 cm R lip, ac 20, tv 450, 5 peep, 40%, sat 98, lungs decr, sputum sent - white secretions, hyper bowel sounds, no bm, abd soft, no vomiting,
# 16 Fr salem inserted to low inter suction w/ brown drainage- at 67 cm, farooq draining yellow urine
[2025-04-19] MEDS: DEXTROSE 50% SYRINGE 12.5 GRAMS IV ×3 (21:50→23:54)
[2025-04-19] MEDS: ASPIRIN 300 MG RECTAL (21:51)
[2025-04-19 21:57] LABS: Glucose - Point of Care 18 mg/dl (70-99)
[2025-04-19 22:17] LABS: Glucose - Point of Care 51 mg/dl (70-99)
[2025-04-19] MEDS: D5/0.9% SODIUM CHLORIDE 1000 IV (22:20)
--- NOTE | 2025-04-19 22:20 | PHA.VAN.IN ---
Assessment
- Assessment
Renal Function: SCR Appears Elevated from baseline (04/12/25 BASELINE SCR: 1.1)
Concomitant Antimicrobials: ZOSYN
- Previous Dosing Experience
Previous Regimen: NONE
AUC Dosing Plan
- Dosing Variables
Dosing Weight (kg): 67.6
Dosing CrCl (ml/min): 40
Vd coefficient (L/kg): 0.7
- Empiric Dosing
Initial / Loading Dose: 1500MG
Maintenance Regimen: 1GM IV Q24H
Estimated AUC (mcg*h/mL): 573
Estimated Peak (mcg*h/mL): 35.6
Estimated Trough (mcg/ml): 15
Estimated Half Life (H): 18.4
Pharmacokinetics Vancomycin I
- -
Patient Age: 84
Patient Sex: Male
Vancomycin Day #: 1
Indication: Pulmonary/Respiratory
Requesting Provider: GHISLAINE
Height / Weight:
Height 5 ft 7 in
Actual Weight 67.6 kg
- Vital Signs / Lab Results
Temp Pulse Resp BP Pulse Ox
103.1 F H 83 19 152/105 100
04/19/25 18:59 04/19/25 21:45 04/19/25 21:45 04/19/25 21:45 04/19/25 21:30
Lab Results - Hematology
04/19/25
17:23
WBC 10.6
Lab Results - Chemistry
04/19/25
17:23
BUN 39 H
Creatinine 1.3
Albumin 3.9
04/19/25
17:23
Lactic Acid 1.6
Lab Results - Urine
04/19/25
17:44
Urine Nitrite (Reflex) Negative
Leukocyte Esterase Rfl Negative
Urine WBC (Reflex) 3-5
Ur Squamous Epith Cells 0-2
Microbiology Results
04/19/25 18:10 Influenza Types A & B (VIGNESH) - Final
Nasal Swab Negative for Influenza A & B, NAAT
Negative results must be combined with clinical observations
and patient history.
Nucleic Acid Amplification test (NAAT)performed on the
[employer] platform.
[2025-04-19 22:33] LABS: Glucose - Point of Care 101 mg/dl (70-99)
--- NOTE | 2025-04-19 23:00 | PTCARENOTE ---
Addendum entered by Ernestina Ordaz RN 04/19/25 23:41:
BP elevated and RR 28, fent 50 imelda iv given, bp & RR improved
Original Note:
Liberty pulled back 1cm per order after xray done- now at 66
[2025-04-19 23:04] LABS: INR 1.08; PT 14.3 Sec (11.4-14.6)
[2025-04-19 23:05] LABS: APTT 29.1 Sec (23.4-35.0)
[2025-04-19] MEDS: SUBLIMAZE 50 MCG IV (23:07)
[2025-04-19] MEDS: HEPARIN 5000 UNITS SC (23:09)
[2025-04-19 23:10] LABS: Glucose - Point of Care 76 mg/dl (70-99)
[2025-04-19 23:16] LABS: Magnesium 1.5 mg/dl (1.6-2.3)
[2025-04-19 23:35] LABS: Troponin I 0.504 ng/ml
[2025-04-19] MEDS: OFIRMEV 100 IV (23:43)
[2025-04-19] MEDS: KCL ELIXIR 20 MEQ TUBE (23:45)
--- NOTE | 2025-04-19 23:55 | PTCARENOTE ---
sys reviewed, accu 62- 1/2 amp d50 IV given, [id number], B DOMONIQUE Amos aware IVF incr to 75ml/hr, ofirmev 1 gm iv given for tem, 2gm mag sulfate iv over 2hr hung, cooling blanket applied
[2025-04-20] VITALS (60 sets, daily range): BP systolic 94–166; BP diastolic 37–85; BMI 24.1
[2025-04-20] MEDS: MAGNESIUM SULFATE 50 IV (00:01)
[2025-04-20 00:05] LABS: Glucose - Point of Care 62 mg/dl (70-99)
[2025-04-20 00:21] LABS: Glucose - Point of Care 122 mg/dl (70-99)
[2025-04-20 01:09] LABS: Glucose - Point of Care 73 mg/dl (70-99)
[2025-04-20] MEDS: ZOSYN 50 IV ×4 (01:49→20:04)
[2025-04-20] MEDS: SUBLIMAZE 50 MCG IV ×2 (01:58→03:57)
--- NOTE | 2025-04-20 02:00 | PTCARENOTE ---
fent 50mic iv given - bucking vent, highh RR; B Bette FINANCIAL DATA ANALYST aware of decr urine output- 250nss hung over 30min per order
[2025-04-20] MEDS: NSS 250 IV (02:02)
[2025-04-20 02:03] LABS: Glucose - Point of Care 74 mg/dl (70-99)
[2025-04-20 03:09] LABS: Glucose - Point of Care 88 mg/dl (70-99)
[2025-04-20 03:10] LABS: Hematocrit 33.3 % (39.0-52.0); Hemoglobin 11.8 g/dL (13.0-18.0); Mean Corp Hgb Conc. 35.4 g/dL (33.0-37.0); Mean Corpuscular Volume 90.7 fL (80.0-94.0); Platelet Count 182 10^3/uL (130-400); Red Cell Dist. Width 12.8 % (11.5-14.5)
[2025-04-20 03:46] LABS: Blood Urea Nitrogen 41 mg/dl (9-20); Calcium 8.5 mg/dl (8.4-10.2); Carbon Dioxide 21 mmol/L (22-30); Chloride 110 mmol/L (98-107); Estimated Creatinine Clearance 34 ml/min; Glucose 42 mg/dl (70-99); Potassium 3.9 mmol/L (3.5-5.1); Sodium 137 mmol/L (135-145); eGFR 45.62
[2025-04-20 03:49] LABS: Troponin I 0.724 ng/ml
--- NOTE | 2025-04-20 03:50 | PTCARENOTE ---
sys reviewed, accu 49, 1/2 amp d50 iv given, pt unresponsive, noam 2mm, sluggish, async w/ vent, fent 50mi iv given, B Amos, MICA BUILDER awre of glucose, & urine output, IVF changed to 1 liter d10 at 50/hr & 1 liter nss at 75/hr, repeat accu at 045 was
37- 1 amp d50 iv given, repeat accu 110; ett repos in center at 23 cm, CHG bath done
[2025-04-20] MEDS: DEXTROSE 50% SYRINGE 12.5 GRAMS IV ×3 (03:51→13:25)
[2025-04-20 04:01] LABS: Glucose - Point of Care 49 mg/dl (70-99)
[2025-04-20] MEDS: D10W 1000 IV ×2 (04:01→20:04)
[2025-04-20] MEDS: NSS 1000 IV ×3 (04:03→22:56)
[2025-04-20] MEDS: DEXTROSE 50% SYRINGE 25 GRAMS IV (04:08)
[2025-04-20 04:17] LABS: Glucose - Point of Care 37 mg/dl (70-99)
[2025-04-20 04:31] LABS: Glucose - Point of Care 110 mg/dl (70-99)
[2025-04-20 05:08] LABS: Glucose - Point of Care 125 mg/dl (70-99)
[2025-04-20] MEDS: SYNTHROID 50 MCG TUBE (05:08)
[2025-04-20] MEDS: VANCOCIN 200 IV (05:08)
[2025-04-20 05:21] LABS: Magnesium 2.6 mg/dl (1.6-2.3)
[2025-04-20 06:06] LABS: Glucose - Point of Care 113 mg/dl (70-99)
[2025-04-20 07:13] LABS: Glucose - Point of Care 94 mg/dl (70-99)
--- NOTE | 2025-04-20 07:45 | PTCARENOTE ---
Received pt intubated with fentanyl @ 50mcg/hr. Right nare SS @ 66cm to LIWS for brown secretions, #[id number] secured 23cm centered and tolerating AC 20/450/.40/+5. Bilateral soft wrist restraints intact. Aspiration precautions maintained. Temperature
sensing farooq secured draining small amount of dark yellow urine. When assessing him and turning him he decorticate postured then rhythmic head movement noted at fist the rhythmic movement with his right brow twitching as well. Dr. Hernadez notified
via TT. Fentanyl drip was then turned off to further assess his neuro status. Safe environment maintained. Aspiration precautions maintained.
--- NOTE | 2025-04-20 08:02 | CON.INTV ---
Consultation
Consultation Request
Date/Time Consultation Requested: 04/19/20252138
Date/Time Consultation Performed: 04/20/2025800
Requesting Provider: Dr. Jacobs
Performing Provider: Dr. Hernadez
Reason for Consultation: Intubated/Unresponsive
Medical History
-
Chief Complaint: Found unresponsive
History of Present Illness:
84-year-old male with a past medical history of DM type II, hypothyroidism, CAD s/p multiple stents (LAD, RCA + LCx), chronic HFmrEF/ICM, CKD, bifascicular block, dementia, chronic ambulatory dysfunction, history of UTI, prostate cancer s/p TURP +
prostatectomy, gout, hypertension, and BPH who presents with being found unresponsive. Patient had been 'sleeping all day,' and not taking his meds prior to arrival. When EMS call, BS was 29. Dextrose was given and a bag of D10 was started. BS
improved to 202. Patient was intubated in the ER for airway protection. Per the , the patient had been confused all day prior to arrival. He has been noncompliant to his medications for several months. He was recently hospitalized here on
04/10 through 04/12/2025, for weakness + lightheadedness. He had been noncompliant to his medications at that time. He was discharged home on BP meds + 8 units Lantus daily. Unfortunately, it is reported that the son administered the patient 35
units of Lantus. The patient was in his usual state of health the evening prior to arrival before him going to bed. In the ER, patient was afebrile to 98.5 �F, pulse rate 68, respiratory rate 16, BP 155/67 and saturating 100% on room air.
Pertinent initial labs showed Hb 12.7, WBC 10.6, glucose 123, T. bili 1.9, magnesium 1.5, troponin 0.214, urinalysis +1 ketones, and COVID-19 antigen negative. Blood cultures collected in addition to respiratory culture. Initial CT head showed no
acute intracranial abnormality, CT abdomen/pelvis showed suspected acute/subacute L1 compression fracture with constipation. CT chest showed pneumonia in the right upper/middle/lower lobes. Patient was given cefepime in the ER + vancomycin, and
admitted to the ICU for further care. [employer] services consulted for additional management/recommendations.
Patient seen and evaluated this morning. Currently intubated on AC/CMV at 20/450/5/40% with PIP 19 cmH2O, VTe 429 mL and breathing at 20 breaths/minute. Heart rate 54, saturating 100%, ETCO2 26 and BP 118/50. Has scanty white ETT secretions. On
no sedation currently and remains unresponsive, even to painful stimuli. He had bilateral arm extension with arm pronation when I examine his feet for clonus. He had been on fentanyl gtt at 50mcg/hr overnight and was on propofol initially in the
ER.
PMHx: DM type II, hypothyroidism, CAD s/p multiple stents (LAD, RCA + LCx), chronic HFmrEF/ICM, CKD, bifascicular block, dementia, chronic ambulatory dysfunction, history of UTI, prostate cancer s/p TURP + prostatectomy, gout, hypertension, BPH
PSHx: Prostatectomy, appendectomy, PTCA with stents, laminectomy, right meniscus repair, spinal fusion with revision, TURP
Past Medical History
Past Medical History: Other (Above as per HPI)
Past Surgical History: Other (Above as per HPI)
Social History
Tobacco: Non-smoker
Alcohol: None
Drug: None
Personal:
Living: With Family ()
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
Family History
Family History: Unable to Obtain
Allergies / Home Medications
Allergies
Allergy/AdvReac Type Severity Reaction Status Date / Time
No Known Allergies Allergy Verified 04/10/25 11:36
Home Medications
�Medication �Instructions �Recorded �Confirmed �Last Taken �Type
rosuvastatin 10 mg tablet 10 mg PO QPM High cholesterol 09/05/20 04/19/25 09/05/20 21:00 History
aspirin 81 mg tablet,delayed 81 mg PO DAILY #30 tabs 09/28/24 04/19/25 09/05/20 09:00 Rx
release
clopidogrel 75 mg tablet 75 mg PO DAILY #30 tabs 09/28/24 04/19/25 08/31/20 Rx
insulin glargine 100 unit/mL (3 0 unit SC .SEE BELOW Diabetes 04/10/25 04/19/25 Unknown History
mL) subcutaneous pen (Lantus
Solostar U-100 Insulin)
levothyroxine 50 mcg tablet 50 mcg PO DAILY Thyroid 04/10/25 04/19/25 Unknown History
metformin 500 mg tablet 500 mg PO .SEE BELOW Diabetes 04/10/25 04/19/25 Unknown History
multivit,Ca,min-iron 8 mg-folic 1 tab PO DAILY Supplement 04/10/25 04/19/25 Unknown History
acid 200 mcg-lycopene 600 mcg
tablet (Centrum Men)
metoprolol tartrate 25 mg tablet 12.5 mg (1/2 x 25 mg) PO BID #60 04/12/25 04/19/25 Unknown Rx
tabs
nifedipine 60 mg tablet,extended 60 mg PO DAILY 04/19/25 04/19/25 Unknown History
release
Review of Systems
-
Unable to Obtain full review of systems at this time due to: Patient Intubation
Vitals / Labs / Diagnostic Testing
Vital Signs
Temp Pulse Resp BP Pulse Ox
98.6 F 57 20 123/51 99
04/20/25 07:15 04/20/25 09:15 04/20/25 09:15 04/20/25 09:00 04/20/25 09:15
Lab Data
04/20/25 02:59
04/20/25 02:59
Laboratory Results
04/19/25
22:47
PT 14.3
INR 1.08
APTT 29.1
Microbiology
04/19/25 22:41 Urine Legionella Urinary Antigen - Final
Negative for Legionella pneumophila Serogroup 1 antigen.
A negative result does not rule out the possiblity of
Legionella infection due to other serogroups or species of
Legionella. Clinical correlation is recommended.
04/19/25 22:41 Urine Streptococcus pneumoniae Antigen (M - Final
Negative for Streptococcus pneumoniae antigen.
A negative result does not exclude infection with
Streptococcus pneumoniae. Clinical correlation is
recommended.
04/19/25 18:10 Nasal Swab Influenza Types A & B (VIGNESH) - Final
Negative for Influenza A & B, NAAT
Negative results must be combined with clinical observations
and patient history.
Nucleic Acid Amplification test (NAAT)performed on the
[employer] platform.
Diagnostic Testing:
Physical Exam
-
HEENT: Normocephalic and Anicteric
Cardiovascular: S1/S2 and Other (Bradycardic)
Respiratory: Wheeze (negative), Rales (Right base), Rhonchi (negative), Non-Labored Respirations and Other (Mechanical breath sounds heard bilaterally)
GI: Soft, Non Distended, Non Tender and Normal Bowel Sounds
Neurology: Tremors (negative) and Other (Intact corneal, gag + cough reflexes; pupils 2 mm bilaterally and sluggish; unresponsive with decerebrate posturing when patient's lower extremities are examined)
Skin: Warm and Dry
General: Respiratory Distress (negative), Fever (negative) and Chills (negative)
Assessment
-
Assessment: 84-year-old male with a past medical history of DM type II, hypothyroidism, CAD s/p multiple stents (LAD, RCA + LCx), chronic HFmrEF/ICM, CKD, bifascicular block, dementia, chronic ambulatory dysfunction, history of UTI, prostate cancer
s/p TURP + prostatectomy, gout, hypertension, and BPH who presents with being found unresponsive. Patient had been 'sleeping all day,' and not taking his meds prior to arrival. When EMS call, BS was 29. Dextrose was given and a bag of D10 was
started. BS improved to 202. Patient was intubated in the ER for airway protection. Per the , the patient had been confused all day prior to arrival. He has been noncompliant to his medications for several months. He was recently
hospitalized here on 04/10 through 04/12/2025, for weakness + lightheadedness. He had been noncompliant to his medications at that time. He was discharged home on BP meds + 8 units Lantus daily. Unfortunately, it is reported that the son
administered the patient 35 units of Lantus. The patient was in his usual state of health the evening prior to arrival before him going to bed. In the ER, patient was afebrile to 98.5 �F, pulse rate 68, respiratory rate 16, BP 155/67 and
saturating 100% on room air. Pertinent initial labs showed Hb 12.7, WBC 10.6, glucose 123, T. bili 1.9, magnesium 1.5, troponin 0.214, urinalysis +1 ketones, and COVID-19 antigen negative. Blood cultures collected in addition to respiratory
culture. Initial CT head showed no acute intracranial abnormality, CT abdomen/pelvis showed suspected acute/subacute L1 compression fracture with constipation. CT chest showed pneumonia in the right upper/middle/lower lobes. Patient was given
cefepime in the ER + vancomycin, and admitted to the ICU for further care. [employer] Hel[employer] services consulted for additional management/recommendations.
Chronic conditions HOME CARE ATTENDANT: DM type II, hypothyroidism, CAD s/p multiple stents (LAD, RCA + LCx), chronic HFmrEF/ICM, CKD, bifascicular block, dementia, chronic ambulatory dysfunction, history of UTI, prostate cancer s/p TURP + prostatectomy, gout,
hypertension, BPH
Impression:
#Severe hypoglycemia due to incorrect dose of lantus administered at home
#Acute respiratory failure with hypoxia on mechanical ventilation (intubated due to airway protection)
#DM type II (HbA1C: 8.7) complicated by hypoglycemia - had been non-compliant to insulin in the past
#Found unresponsive due to hypoglycemic encephalopathy/TME
#EULALIA
#Aspiration pneumonia involving RUL, RML + RLL - found with vomitus on front of body HOME CARE ATTENDANT
#Chronic anemia (baseline Hb 12-13.5 g/dL)
#Chronic hyperbilirubinemia
#Chronic HFmrEF with diastolic dysfunction
#Valvular heart disease
#CAD s/p multiple stents to LAD, RCA and LCx (2013)
Plan:
- Continue with mechanical ventilation with daily SAT/SBT if clinically appropriate
- Maintain plateau pressure <30 and titrate FiO2 + PEEP to keep SpO2 >90-94%
- Continue aspiration precautions; keep HOB >30-45�
- prn nebulized bronchodilators - not currently bronchospastic
- Oropharyngeal + deep ETT suctioning with subglottic as needed
- Daily CXR + blood gas
- Daily vent adjustments as needed based on blood gas and SaO2
- Since patient remains unresponsive off sedation, only use prn fentanyl +/- Versed if needed for ventilator asynchrony versus agitation; try to remain fully off agitation to help prognosticate
- Continue D10W with q1hr fingersticks; avoid hypoglycemia
- Goal BG >100 mg/dL
- Check CK to eval for rhabdo
- If CK elevated, then will start isotonic crystalloids and trend CPK until <500
- Continue ABx with Vanc/Zosyn
- Follow up infectious workup including blood cultures, respiratory cultures + MRSA swab
- Trend WBC and monitor temperature curve
- Pt was having seizure like activity this AM - s/p EEG and pt given keppra
- Follow-up official EEG impression
- Neuro consulted
- Continue AEDs per neurology
- Given that he emiliano unresponsive with no acute intracranial pathology seen on CT head from admission, check MRI brain tomorrow
- Maintain MAP>65
- Renally adjust all meds/Abx
- Trned sCr, trend UOP
- Trend T. bili
- Trend troponin until it peaks
- Believe this is a type II OR, hence no need for echo or cardiology consult at this time
- Recent echo on 04/11/2025 showed LVEF 45-3%, with global hypokinesis, mild moderate LVH, stage II diastolic dysfunction, mild MAC with mild MR, mild�moderate AI with no significant changes overall since prior echo in August 2024
- Replete electrolytes with K>4, Mg>2
- Trend H/H and transfuse if needed to keep Hb>7g/dL; keep plt>20k, unless there is concern for bleeding then keep plt>50k
- Early nutrition - start tube feeds
- Stress ulcer ppx: Start PPI
- DVT ppx: HSQ
Code status: DNR; poor prognosis
Critical care statement: A total of 38 minutes of critical care time was provided for this patient today. This includes management of unstable vital signs, evaluation of the patient at bedside, reviewing the patient's pertinent medical records
including radiographs, microbiology, laboratory evaluations, and discussion with primary team, consultants, pharmacy, nutrition, physical therapy, case management, charge nurse, critical care nursing, and respiratory therapy.
Data:
CT chest without contrast 04/19/2025:
1. Patchy consolidation and peribronchovascular thickening throughout the right upper and lower lobes and to a lesser degree the right middle lobe, in keeping with pneumonia and bronchiolitis.
2. Severe coronary artery calcifications.
3. Partially visualized L1 compression fracture.
CT head 04/19/2025: No acute intracranial abnormality noted.
Transthoracic echocardiogram 04/11/2025:
Normal left ventricular chamber size. Mildly reduced left ventricular systolic
function. Left ventricular ejection fraction is 45-50% by volumetric
assessment. Global hypokinesis. Mild to moderate left ventricular hypertrophy
with septum measuring 1.4 cm. Stage II diastolic dysfunction suggestive of
abnormal relaxation and increased filling pressures.
Mitral valve opens normally. Thickened mitral valve leaflets. Mitral annular
calcification. Mild mitral regurgitation.
Indexed LA volume is mildly abnormal (35-41 mL/m2).
Trileaflet aortic valve. Calcified aortic valve with adequate leaflet
excursion. Mild to moderate aortic regurgitation.
Since echocardiogram August 2024, there is no significant change.
[2025-04-20 08:13] LABS: Glucose - Point of Care 79 mg/dl (70-99)
--- NOTE | 2025-04-20 08:24 | PHA.VAN.FU ---
Vancomycin Assessment / Plan
- Assessment
Renal Function: SCR Increasing
WBC's are: Stable
Concomitant Antimicrobials: piperacillin/tazobactam
- Dosing Plan
Adjust Regimen to: dosing by level
Dosing Comments: received 1500mg 04/19 19:20 PLUS 1g 04/20 05:08 to date
- Monitoring Plan
Random Level: 04/21 0600
- Follow Up
Pharmacy will continue to follow.
Vancomycin Follow UP
- -
Patient Age: 84
Patient Sex: Male
Vancomycin Day #: 2
Indication: Pulmonary/Respiratory
Requesting Provider: Dr. Jacobs
Pertinent Antimicrobial Allergies:
NKDA
Height / Weight:
Height 5 ft 7 in
Actual Weight 69.6 kg
Pertinent Past Medical History: CKD III, DM
- Vital Signs / Lab Results
Temp Pulse Resp BP Pulse Ox
98.6 F 53 20 96/46 100
04/20/25 07:15 04/20/25 06:30 04/20/25 06:30 04/20/25 06:30 04/20/25 06:30
Lab Results - Hematology
04/19/25 04/20/25
17:23 02:59
WBC 10.6 11.5 H
Lab Results - Chemistry
04/19/25 04/20/25
17:23 02:59
BUN 39 H 41 H
Creatinine 1.3 1.5 H
Estimated Creat Clear 34
Albumin 3.9
04/19/25
17:23
Lactic Acid 1.6
Lab Results - Urine
04/19/25
17:44
Urine Nitrite (Reflex) Negative
Leukocyte Esterase Rfl Negative
Ur Squamous Epith Cells 0-2
Microbiology Results
04/19/25 22:41 Legionella Urinary Antigen - Final
Urine Negative for Legionella pneumophila Serogroup 1 antigen.
A negative result does not rule out the possiblity of
Legionella infection due to other serogroups or species of
Legionella. Clinical correlation is recommended.
Streptococcus pneumoniae Antigen (M - Final
Negative for Streptococcus pneumoniae antigen.
A negative result does not exclude infection with
Streptococcus pneumoniae. Clinical correlation is
recommended.
04/19/25 18:10 Influenza Types A & B (VIGNESH) - Final
Nasal Swab Negative for Influenza A & B, NAAT
Negative results must be combined with clinical observations
and patient history.
Nucleic Acid Amplification test (NAAT)performed on the
[employer] platform.
[2025-04-20 09:08] LABS: Glucose - Point of Care 64 mg/dl (70-99)
[2025-04-20] MEDS: HEPARIN 5000 UNITS SC ×3 (09:08→23:47)
[2025-04-20] MEDS: PLAVIX 75 MG TUBE (09:08)
--- NOTE | 2025-04-20 09:08 | CON.NEURO4 ---
Addendum entered and electronically signed by Justin Daniels MD 04/20/25 10:42:
Studies reviewed.
I have personally examined the patient. I reviewed and agree with the ANESTHETIC ASSISTANT's Note.
My addenda:
Unresponsive, intubated. No acute distress.
Mute
Does not follow requests. No tremor. Myoclonic movements to the right by head turning lasting less than 1 second
Negative doll's eyes.
Neck: full ROM.
Chest: no dyspnea
Heart: no JVD
Ext: (-) Clubbing, (-) Cyanosis, (-) Edema
IMPRESSIONS/RECOMMENDATIONS:
Abrupt onset of change in mental status with profound hypoglycemia and possible sepsis
Myoclonic movements will be assessed by EEG
Continue supportive care
Would repeat imaging if patient does not have significant improvement
Consider lumbar puncture if the patient does not have significant improvement
Will continue to follow peripherally.
Original Note:
Consultation - Neurology 4
-
CONSULTING PHYSICIAN: Justin Daniels MD
REFERRING PHYSICIAN: Hospitalists/Dr. Mike MD Resident
DICTATED BY: ADILSON Nelson
DATE/TIME OF REQUEST: 04/20/25
DATE/TIME OF CONSULTATION: 04/20/25
Reason for Consultation: Change in mental status, abnormal movements
History of Present Illness:
This is an 84-year-old male who has presented to the hospital on 04/19/25 with report of being found unresponsive. This history is obtained from medical record review as the patient is unresponsive. Patient's spouse reported that the patient had
been confused yesterday during the day. In the evening she found him unresponsive and called 911. EMS arrived and noted that his blood sugar was 29, they gave him D10. Upon arrival in the ER, blood sugar was 200 but he was still unresponsive and
breathing was agonal, prompting intubation. CT head was obtained and is negative for any acute abnormalities. Temperature was up to 103.1, CT chest concerning for a right lobe pneumonia. Today (04/20/25), he remains unresponsive and is having jerking
movements of his head, prompting Neurology evaluation.
Past Medical History: Dementia, HTN, CAD, ischemic cardiomyopathy, CKD, DM requiring insulin, hypothyroidism, prostate cancer, BPH, gout, ambulatory dysfunction, medication noncompliance, frequent UTIs
Surgical History: Cardiac stents x2, prostatectomy, appendectomy, spinal fusion, TURP, R meniscus repair
Family History: Reviewed and noncontributory.
Social History: No tobacco, alcohol, or illicit drug use.
Allergies: No known allergies.
Home Medications: See below.
Review of Symptoms:
Per the HPI. I am unable to obtain a complete review of systems�because of patient's inability to provide history.
Physical Exam:
The patient is afebrile, sedated/intubated, abdomen is nondistended, skin is cool and dry, no edema.
Neurologic Examination:
The patient is intubated and sedated on propofol. He does not follow any commands. There is no eye opening. On cranial nerve assessment, pupils are 3 mm bilateral, round and reactive to light and accommodation. Negative Dolls eyes. Gaze is midline.
CAROLYN visual hernandez/EOMs. There is no apparent facial asymmetry. CAROLYN hearing. CAROLYN tongue. To pain, motor response is 0/5 in all extremities. There is a rhythmic head jerking to the right side typically with stimulation. There is also an occasional
rhythmic jaw opening. Deep tendon reflexes are 1+ bilateral upper and lower extremities and Babinski is absent bilaterally. CAROLYN sensation, double simultaneous, and coordination.
Lab Results: See below.
Neuro Imaging:
1. CT Head 04/20/25: No acute intracranial abnormality noted.
Differentials for the patient's presentation include:
1. Change in mental status in the setting of severe prolonged hypoglycemia. Abnormal movements consistent with myoclonus, however, given glucose level return to baseline and no improvement in exam, concern for possible seizure activity.
Patient has the following risk factors for their symptoms: severe metabolic derangements
Recommendations:
-Routine EEG pending.
-Provide a loading dose of levetiracetam, then would continue levetiracetam 1000mg twice a day.
-Neurological checks per unit guidelines.
-Eventual consideration for MRI brain imaging if no improvement in mental status.
-DVT prophylaxis.
Discussed patient care with: Dr. Daniels, nursing staff
Vital Signs and Labs
-
Vital Signs and Labs:
Vital Signs
Temp Pulse Resp BP Pulse Ox
98.6 F 57 20 123/51 99
04/20/25 07:15 04/20/25 09:15 04/20/25 09:15 04/20/25 09:00 04/20/25 09:15
Lab Results
04/20/25 02:59
04/20/25 02:59
PT 14.3 Sec (11.4-14.6) 04/19/25 22:47
INR 1.08 04/19/25 22:47
APTT 29.1 Sec (23.4-35.0) 04/19/25 22:47
Sodium 137 mmol/L (135-145) 04/20/25 02:59
Potassium 3.9 mmol/L (3.5-5.1) 04/20/25 02:59
BUN 41 mg/dl (9-20) H 04/20/25 02:59
Glucose 42 mg/dl (70-99) L* 04/20/25 02:59
Calcium 8.5 mg/dl (8.4-10.2) 04/20/25 02:59
Phosphorus 2.9 mg/dl (2.5-4.5) 04/19/25 17:23
Medications
-
Active Medications
Generic Name Dose Route Start Last Admin
Trade Name Freq PRN Reason Stop Dose Admin
Acetaminophen 650 mg 04/19/25 22:49
Acetaminophen (Oral Solution) 650 Mg/20.3 Ml Cup TUBE 05/17/25 22:28
Q4HPRN PRN
Temp > 100.4 and mild pain
Aspirin 81 mg 04/20/25 08:00
Aspirin 81 Mg (Enteric Coated) Tablet PO 05/18/25 07:59
DAILY GAIL
Clopidogrel Bisulfate 75 mg 04/20/25 08:00 04/20/25 09:08
Clopidogrel 75 Mg Tablet TUBE 05/18/25 07:59 75 mg
DAILY GAIL Administration
Dextrose 12.5 grams 04/19/25 22:00 04/20/25 09:00
Dextrose 50% (0.5 Grams/Ml) 50 Ml Syringe IV 05/17/25 21:59 12.5 grams
[id number] PRN Administration
hypoglycemia
Protocol
Fentanyl Citrate 50 mcg 04/19/25 17:31 04/20/25 03:57
Fentanyl (50 Mcg/Ml) 100 Mcg/2 Ml Ampul IV 05/03/25 17:30 50 mcg
[id number] PRN Administration
see protocol
Protocol
Glucagon 1 mg 04/19/25 22:00
Glucagon 1 Mg Vial IM 05/17/25 21:59
PRN PRN
hypoglycemia - no IV access
Protocol
Heparin Sodium 5,000 units 04/20/25 00:00 04/20/25 09:08
Heparin 5,000 Units/Ml 1 Ml Vial SC 05/18/25 00:00 5,000 units
Q8 GAIL Administration
Piperacillin Sod/Tazobactam Sod 3.375 gram in 50 mls @ 100 mls/hr 04/20/25 02:00 04/20/25 09:07
Zosyn IV 50 mls
Q6H GAIL Administration
Fentanyl Citrate 1,000 mcg in 100 mls @ 0 mls/hr 04/19/25 22:52
Sublimaze IV
PER PROTOCOL GAIL
Protocol
Per Protocol
Propofol 1,000,000 mcg in 100 mls @ 0 mls/hr 04/19/25 22:52
Diprivan IV
PER PROTOCOL GAIL
Protocol
Per Protocol
Dextrose 1,000 mls @ 50 mls/hr 04/20/25 04:00 04/20/25 04:01
D10w IV 1,000 mls
.Q20H GAIL Administration
Sodium Chloride 1,000 mls @ 75 mls/hr 04/20/25 04:00 04/20/25 04:03
Nss IV 1,000 mls
.[id number] GAIL Administration
Vancomycin HCl 1 each/ Device 0 mls @ 0 mls/hr 04/20/25 08:30
IV
PER PROTOCOL GAIL
Protocol
As Directed
Insulin Aspart 0 units 04/19/25 22:00 04/20/25 06:07
Insulin Aspart Low Resistance 300 Units/3 Ml Pen.Injctr SC 05/17/25 21:59 Not Given
Q4H GAIL
Protocol
Levetiracetam 750 mg 04/20/25 20:00
Levetiracetam (100 Mg/Ml) 500 Mg/5 Ml Vial IV 05/18/25 19:59
Q12 GAIL
Levothyroxine Sodium 50 mcg 04/20/25 06:00 04/20/25 05:08
Levothyroxine 50 Mcg Tablet TUBE 05/18/25 05:59 50 mcg
DAILY @ 0600 GAIL Administration
Metoprolol Tartrate 12.5 mg 04/20/25 08:00
Metoprolol 12.5 Mg Regular Release Dose (1/2 Of 25 Mg Tablet) TUBE 05/18/25 07:59
BID GAIL
Ondansetron HCl 4 mg 04/19/25 21:39
Ondansetron 4 Mg/2 Ml Vial IV 05/17/25 21:38
Q6HPRN PRN
nausea/vomiting
Polyethylene Glycol 17 grams 04/20/25 08:00
Polyethylene Glycol Powder 17 Grams Packet TUBE 05/18/25 07:59
DAILY GAIL
Rosuvastatin Calcium 10 mg 04/20/25 18:00
Rosuvastatin (Crestor) 10 Mg Tablet PO 05/18/25 17:59
QPM GAIL
Sodium Chloride 0 flush 04/19/25 22:00
Sodium Chloride 0.9% (Flush) Syringe IV 05/17/25 21:59
PER PROTOCOL GAIL
Home Medications
�Medication �Instructions �Recorded
rosuvastatin 10 mg tablet 10 mg PO QPM High cholesterol 09/05/20
aspirin 81 mg tablet,delayed 81 mg PO DAILY #30 tabs 09/28/24
release
clopidogrel 75 mg tablet 75 mg PO DAILY #30 tabs 09/28/24
insulin glargine 100 unit/mL (3 0 unit SC .SEE BELOW Diabetes 04/10/25
mL) subcutaneous pen (Lantus
Solostar U-100 Insulin)
levothyroxine 50 mcg tablet 50 mcg PO DAILY Thyroid 04/10/25
metformin 500 mg tablet 500 mg PO .SEE BELOW Diabetes 04/10/25
multivit,Ca,min-iron 8 mg-folic 1 tab PO DAILY Supplement 04/10/25
acid 200 mcg-lycopene 600 mcg
tablet (Centrum Men)
metoprolol tartrate 25 mg tablet 12.5 mg (1/2 x 25 mg) PO BID #60 04/12/25
tabs
nifedipine 60 mg tablet,extended 60 mg PO DAILY 04/19/25
release
--- NOTE | 2025-04-20 09:18 | PTOTSP ---
Received order for PT from the ED and reviewed chart. Pt was intubated in the ED. Pt is not appropriate for PT services at this time. Please re-order PT and order OT when pt is extubated and stable to begin therapy activity.
[2025-04-20 09:32] LABS: Glucose - Point of Care 110 mg/dl (70-99)
[2025-04-20] MEDS: KEPPRA 41 MG IV (09:32)
[2025-04-20 10:12] LABS: Glucose - Point of Care 102 mg/dl (70-99)
--- NOTE | 2025-04-20 10:15 | PTCARENOTE ---
Spoke with [employer] civil rights representative Whitley, civil rights representative will dispatched to .
[2025-04-20] MEDS: LOW STRENGTH ASPIRIN 81 MG TUBE (10:37)
[2025-04-20] MEDS: MIRALAX 17 GRAMS TUBE (10:37)
[2025-04-20 11:06] LABS: Glucose - Point of Care 107 mg/dl (70-99)
--- NOTE | 2025-04-20 11:17 | EEG.RPT ---
Electroencephalogram Report
Recording
Date of EE04/20/25
Type of EEG: Routine
Length of EEG recordin minutes
Done with Video Recording: Yes
Patient Status: Inpatient
Recording Conditions: Drowsy and Asleep
Hyperventilation Performed: No
Photic Stimulation Performed: Yes
Report
LESS THAN 1 HOUR REPORT
LESS THAN 1 HOUR EEG INTERPRETATION:
Severely abnormal study for age based nearly continuous occipital rhythmic delta activity involving the left hemisphere as well as generalized slowing demonstrated bihemispherically
CLINICAL CORRELATION:
Although normative values not been established for a person of this advanced age, the posterior rhythmic and often generalized background slowing suggested a diffuse cortical process which may be metabolic in nature.
Clinical correlation is advised.
METHODS:
A 21 channel digitized electroencephalogram (EEG) was performed at the bedside. The 10/20 international system of electrode placement was used with ECG and lateral/vertical eye movements recorded. The ClearFit quantitative EEG analysis system was
performed.
ELECTROENCEPHALOGRAPHER IMPRESSION(S):
Quality of study
Good
Background
Medium amplitude
Fair anterior-posterior voltage gradient differentiation
Delta maximal background demonstrated
Sleep
Drowsiness present
Hyperventilation
Not performed
Photic Stimulation
Failed to activate the record
ECG
Normal rhythm
Abnormal Activity
Abundant left occipital-rhythmic medium amplitude delta activity with a frequency of 1/s, mildly variable
[2025-04-20 11:48] LABS: Troponin I 0.699 ng/ml
[2025-04-20 12:17] LABS: Glucose - Point of Care 87 mg/dl (70-99)
[2025-04-20 12:19] LABS: CKMB 3.2 ng/ml (0.0-3.4)
[2025-04-20] MEDS: PROTONIX IV 40 MG IV (13:29)
[2025-04-20] MEDS: NSS (PRESERVATIVE FREE) 10 ML IV (13:29)
[2025-04-20 13:35] LABS: Glucose - Point of Care 60 mg/dl (70-99)
[2025-04-20 13:51] LABS: Glucose - Point of Care 128 mg/dl (70-99)
--- NOTE | 2025-04-20 15:06 | PTCARENOTE ---
Crissy [phone] was provided a phone update. She is aware and MRI of his brain was ordered for tomorrow. I described his abnormal posturing with stimuli and she stated at home he was bending his right leg up but never woke up or opened his eyes. I
informed her that that was an abnormal finding. She had no other questions at this time. Supportive care provided. She was also given our phone number if she wanted to call for update.
--- NOTE | 2025-04-20 15:09 | CM ---
"Patient recently discharged from [facility] 04/10/25 to 04/12/25. Declined HH RN at that time. [employer] patient was independent in ADL's and ambulation with a RW. He lives with his in a 1 story home with 1 step to enter. No in-home services. PCP is Dr. Randee (~) and Pharmacy is [facility] in [place]. Discharge POC: TBD. "
[2025-04-20 15:13] LABS: Glucose - Point of Care 73 mg/dl (70-99)
[2025-04-20 16:10] LABS: Glucose - Point of Care 104 mg/dl (70-99)
--- NOTE | 2025-04-20 16:35 | W.PN.HOSP.TC ---
Today's Communication/Plan
-
continue Ventilatory support
Assessment / Plan
Assessment / Plan
Is a 84-year-old male with past medical history of insulin-dependent diabetes, hypertension, CAD status post tenting with ischemic cardiomyopathy who presents to the emergency department obtunded in the setting of hypoglycemia. Patient was recently
hospitalized for weakness. At that time was found to be noncompliant with medications for several months and was restarted on his medications. Patient was discharged on insulin and he does not have a glucometer at home nor does he check his blood
glucoses. Son reported that he was given 34 units of Lantus last night when he was actually discharged on 8 units subcu. He was found unresponsive this morning by spouse. When EMS arrived he was found to be hypoglycemic to 39. He was febrile in
the emergency department 213 with a right lower lobe infiltrate. I suspect that this is iatrogenic hypoglycemia with possible aspiration pneumonia as well. He is normotensive and his oxygen saturation is actually quite maintained on 40% FiO2. UA
is negative. COVID and flu are negative.
PLAN:
Respiratory failure -likely secondary to above condition in setting of hypoglycemia. Patient remains unresponsive but has some nonspecific movement at this time. He is sedated on propofol and fentanyl after intubation
-Admit to ICU
-Maintain current vent settings 20/450/40/5 with current oxygen saturation of 100%
-ET tube adjusted per ED
- Continue sedation for now, wean tolerated
-Metal Tile Lather consult
Hypoglycemia -2/2 insulin o/d corrected status post D10. Patient remains normoglycemic on initial repeat
- close monitoring q 2 hours, dextrose supplementation as neeed.
-
Pneumonia -fever, right lower lobe infiltrate, suspect aspiration overnight
-Blood cultures have been sent
-IV Vanco Zosyn
-MRSA swab +
- neg cov/flu
Med rec
-Continue aspirin, Plavix, levothyroxine
-Hold metformin
NSTEMI - Suspect non-ishemic myocardial injury in setting of infection and obtundation. Chronically elevated troponin
- trend troponin, if rising further start heparin gtt
- asa 300 rectal x 1 now
- continue DAPT
DVT prophylaxis�heparin subcu
CODE STATUS�limited DNR, intubation okay no CPR
Anticipated Discharge: > 48 hours
Subjective/Interval History
-
Date of Service: April 20, 2025
Remains unresponsive and intubated
Objective Data
-
Vital Signs:
Vital Signs
Temp Pulse Resp BP Pulse Ox
98.8 F 52 20 129/44 100
04/20/25 15:03 04/20/25 15:45 04/20/25 15:45 04/20/25 15:30 04/20/25 15:45
I&O
04/19/25 04/20/25 04/21/25
06:59 06:59 06:59
Intake Total 1710.0 / 1840.0 2034
Output Total 220 / 251 182 / 182
Balance 1490.0 / 1589.0 1852
Review of Systems
-
Unable to obtain full review of systems at this time due to: Patient Intubation
History Source: Physician and Coordinated Provider
Constitutional: Reports Fever (Tmax 103.1 04/19 18:59, afebrile since 04/20 03:00)
Physical Exam
-
General: Well Developed, Well Nourished and Intubated
HEENT: Normocephalic, Atraumatic and Moist Mucous Membranes
Respiratory: Clear to Auscultation; Negative Wheezes, Rales or Rhonchi
Cardiac: Regular Rhythm and S1/S2
GI: Soft, Nontender and Nondistended
[2025-04-20 17:13] LABS: Glucose - Point of Care 93 mg/dl (70-99)
[2025-04-20 18:14] LABS: Glucose - Point of Care 82 mg/dl (70-99)
[2025-04-20 19:09] LABS: Glucose - Point of Care 79 mg/dl (70-99)
[2025-04-20] MEDS: CRESTOR 10 MG TUBE (20:04)
[2025-04-20] MEDS: KEPPRA 750 MG IV (20:04)
[2025-04-20] MEDS: NSS IV (20:06)
[2025-04-20 20:18] LABS: Glucose - Point of Care 73 mg/dl (70-99)
--- NOTE | 2025-04-20 21:00 | PTCARENOTE ---
Rec'd pt on ventilator, off sedation since 0800. GCS 6, withdraws to painful stimuli. Sluggish pupils 2-3 equal. Right side 2/5 movement to pain. No movement noted LUE, LLE with some random twitches. Patient does not track or do anything purposeful.
Protective reflexes intact. Pt not noted to be overbreathing the set RR on ventilator. Cooling blanket if needed to maintain temp <100.4. SB on monitor with some hypertension. Hydralazine given IV as ordered. Pulses via doppler. IV lines
flushed/patent. Art line placed by DOMONIQUE Amos. Zero'd transduced. Accu checks as ordered. D10 infusing at 75ml/hr. Accu checks remain in low 70s. #8 ett, vent settings as ordered. Decreased breath sounds. Suctioned for minimal, copious from mouth.
Sat 100%. NGT right nare to LIWS draining scant green drainage, flushed as ordered. Miralax given on chris shift. Díaz for critical I&Os. Will monitor.
--- NOTE | 2025-04-20 21:12 | W.PN.UPDATE ---
Update Note
Progress Note Update
Procedure Note: Arterial Line�
� Right Wrist Arrow 20 (11/30)�
Diagnosis:�Unresponsive�
IV Line Comments: Uneventful Procedure�
Sedrick's test completed pre-procedure: Yes�
A-Line Comments: Sterile technique as per standard protocol, Ultrasound guided insertion�
Functioning A-line in situ: Yes�
A-line Insertion Start Time:��2034
A-line in at:��2054
[2025-04-20 21:37] LABS: Glucose - Point of Care 71 mg/dl (70-99)
[2025-04-20] MEDS: APRESOLINE 10 MG IV (21:46)
[2025-04-20 22:13] LABS: B.E. 0.2 mmol/L; HCO3 23.3 mmol/L (21-28); O2 Saturation % 99.5 % (94-98); PCO2 32 mmHg (35-48); PO2 169 mmHg (83-108); Potassium 3.0 mMOL/L (3.5-5.1); Sodium 135 mMOL/L (136-145)
--- NOTE | 2025-04-20 23:38 | PTCARENOTE ---
ABG sent and resulted. Vent setting changed by RT.
Pt son called and is trying to visit. Strict orders appreciated by pt to not give any information to 2 sons at this time. requested ordered MRI be done before she tells sons any information. Scheduled for AM. Son (Evangelista) called unit to try
to come up to visit and get information. Son's significant other also spoke to staff saying they are close by and will be coming up. Sig other told to speak to patient's regarding visitation/information. It has been relayed that does not
have a car to come up to see her because her son has her car. Unsure of family dynamics, but out of respect for and her wishes, no visitation at this time. Nursing psychiatric social worker supervisor made aware, security notified, and will attempt to clarify
with if she calls the unit or tomorrow during waking hours. Will monitor
[2025-04-20] MEDS: KCL ELIXIR 20 MEQ TUBE (23:47)
[2025-04-20 23:57] LABS: Glucose - Point of Care 97 mg/dl (70-99)
[2025-04-21] VITALS (11 sets, daily range): BP systolic 102–150; BP diastolic 41–58; BMI 25.1; BMI 24.8
[2025-04-21 02:14] LABS: Glucose - Point of Care 124 mg/dl (70-99)
[2025-04-21] MEDS: ZOSYN 50 IV ×2 (03:07→08:16)
[2025-04-21 03:23] LABS: B.E. -1.1 mmol/L; HCO3 21.8 mmol/L (21-28); O2 Saturation % 99.3 % (94-98); PCO2 30 mmHg (35-48); PO2 156 mmHg (83-108)
[2025-04-21 03:32] LABS: Hematocrit 29.8 % (39.0-52.0); Hemoglobin 10.8 g/dL (13.0-18.0); Mean Corp Hgb Conc. 36.2 g/dL (33.0-37.0); Mean Corpuscular Volume 91.7 fL (80.0-94.0); Platelet Count 169 10^3/uL (130-400); Red Cell Dist. Width 12.7 % (11.5-14.5)
[2025-04-21 04:00] LABS: ALT (SGPT) 20 U/L (0-50); AST (SGOT) 81 U/L (17-59); Albumin 2.8 g/dl (3.5-5.0); Alkaline Phosphatase 36 U/L (38-126); Blood Urea Nitrogen 31 mg/dl (9-20); Calcium 7.9 mg/dl (8.4-10.2); Carbon Dioxide 23 mmol/L (22-30); Chloride 109 mmol/L (98-107); Estimated Creatinine Clearance 34 ml/min; Glucose 127 mg/dl (70-99); Magnesium 2.1 mg/dl (1.6-2.3); Potassium 3.1 mmol/L (3.5-5.1); Sodium 135 mmol/L (135-145); Total Protein 5.1 g/dl (6.3-8.2); eGFR 45.62
[2025-04-21] MEDS: KCL 270 MEQ IV (05:48)
[2025-04-21] MEDS: NSS 1000 IV (05:48)
[2025-04-21] MEDS: SYNTHROID 50 MCG TUBE (05:48)
[2025-04-21 06:04] LABS: Glucose - Point of Care 138 mg/dl (70-99)
--- NOTE | 2025-04-21 08:00 | PTCARENOTE ---
Received pt @ change of shift. Pt. unresponsive; decorticate posturing to noxious stimuli; +cough/gag/corneal; no spont eye opening. Twitching present @ x's. SB/SR w BBB w prolonged QT. Doppler pedal pulses. SpO2 100% on vent settings
AC16/450/.35/+5. #8.0 ett/24 @ lip on L side. Suctioned for small amts of thick lehman/bloody tinged secretions. R varsha NGT secured @ 66cm; clamped for meds; otherwise on LIS w small green output. Díaz in palce draining yellow urine. #22 L FA
patent; #18 L FA w NSS @ 80mL/hr and K+rider; #20 R FA w D10 @ 75mL/hr; dressings c/d/i/. Plan for Brain MRI. Safe environment maintained.
--- NOTE | 2025-04-21 08:03 | PHA.VAN.FU ---
Vancomycin Assessment / Plan
- Assessment
Renal Function: Stable
WBC's are: WNL
Concomitant Antimicrobials: piperacillin/tazobactam
- Assessment - Therapeutic Drug Monitoring
Random Level: 11.6 - drawn ~22H after previous dose of 1g
- Dosing Plan
Dosing by Level: Re-dose today (Vanc 1000mg)
- Monitoring Plan
Random Level: 04/22 06
- Follow Up
Pharmacy will continue to follow.
Vancomycin Follow UP
- -
Patient Age: 84
Patient Sex: Male
Vancomycin Day #: 3
Indication: Pulmonary/Respiratory
Requesting Provider: Dr. Jacobs
Pertinent Antimicrobial Allergies:
NKDA
Height / Weight:
Height 5 ft 7 in
Actual Weight 72.6 kg
Pertinent Past Medical History: CKD III, DM
- Vital Signs / Lab Results
Temp Pulse Resp BP Pulse Ox
100.1 F 62 20 110/43 100
04/21/25 01:39 04/21/25 04:30 04/21/25 04:30 04/21/25 04:00 04/21/25 04:52
Lab Results - Hematology
04/19/25 04/20/25 04/21/25
17:23 02:59 03:06
WBC 10.6 11.5 H 9.7
Lab Results - Chemistry
04/19/25 04/20/25 04/21/25
17:23 02:59 03:06
BUN 39 H 41 H 31 H
Creatinine 1.3 1.5 H 1.5 H
Estimated Creat Clear 34 34
Albumin 3.9 2.8 L
04/19/25
17:23
Lactic Acid 1.6
Microbiology Results
04/19/25 17:23 Blood Culture - Preliminary
Blood/Venous No Growth in 24 hours- Final report to follow
04/19/25 18:01 Blood Culture - Preliminary
Blood/Venous Staphylococcus species
Gram Stain - Preliminary
04/20/25 10:45 Nasal Screen MRSA (PCR) - Final
Nose Staph aureus MRSA
04/19/25 22:41 Gram Stain - Preliminary
Sputum
04/19/25 22:41 Legionella Urinary Antigen - Final
Urine Negative for Legionella pneumophila Serogroup 1 antigen.
A negative result does not rule out the possiblity of
Legionella infection due to other serogroups or species of
Legionella. Clinical correlation is recommended.
Streptococcus pneumoniae Antigen (M - Final
Negative for Streptococcus pneumoniae antigen.
A negative result does not exclude infection with
Streptococcus pneumoniae. Clinical correlation is
recommended.
04/19/25 18:10 Influenza Types A & B (VIGNESH) - Final
Nasal Swab Negative for Influenza A & B, NAAT
Negative results must be combined with clinical observations
and patient history.
Nucleic Acid Amplification test (NAAT)performed on the
[employer] platform.
Therapeutic Drug Monitoring
Random Vancomycin 11.6 ug/ml 04/21/25 03:06
--- NOTE | 2025-04-21 08:11 | W.PN.INTV ---
Today's Communication / Plan
Recommendations
MRI brain this AM shows extensive abnormalities - consistent with hypoglycemic encephalopathy
Discussion held with the -she is en route to the hospital and we will discuss his case further, and she is leaning towards withdrawal of care
Continue mechanical ventilation in the interim, in addition to tube feeds with q1hr fingersticks while on D10 gtt
Continue ICU level of care for this critically ill patient
Assessment
-
Assessment: 84-year-old male with a past medical history of DM type II, hypothyroidism, CAD s/p multiple stents (LAD, RCA + LCx), chronic HFmrEF/ICM, CKD, bifascicular block, dementia, chronic ambulatory dysfunction, history of UTI, prostate cancer
s/p TURP + prostatectomy, gout, hypertension, and BPH who presents with being found unresponsive. Patient had been 'sleeping all day,' and not taking his meds prior to arrival. When EMS call, BS was 29. Dextrose was given and a bag of D10 was
started. BS improved to 202. Patient was intubated in the ER for airway protection. Per the , the patient had been confused all day prior to arrival. He has been noncompliant to his medications for several months. He was recently
hospitalized here on 04/10 through 04/12/2025, for weakness + lightheadedness. He had been noncompliant to his medications at that time. He was discharged home on BP meds + 8 units Lantus daily. Unfortunately, it is reported that the son
administered the patient 35 units of Lantus. The patient was in his usual state of health the evening prior to arrival before him going to bed. In the ER, patient was afebrile to 98.5 �F, pulse rate 68, respiratory rate 16, BP 155/67 and
saturating 100% on room air. Pertinent initial labs showed Hb 12.7, WBC 10.6, glucose 123, T. bili 1.9, magnesium 1.5, troponin 0.214, urinalysis +1 ketones, and COVID-19 antigen negative. Blood cultures collected in addition to respiratory
culture. Initial CT head showed no acute intracranial abnormality, CT abdomen/pelvis showed suspected acute/subacute L1 compression fracture with constipation. CT chest showed pneumonia in the right upper/middle/lower lobes. Patient was given
cefepime in the ER + vancomycin, and admitted to the ICU for further care. Air Tester services consulted for additional management/recommendations.
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
hypertension, BPH
Impression:
#Severe hypoglycemia due to incorrect dose of lantus administered at home
#Occasional decerebrate posturing due to hypoglycemic encephalopathy
#Acute respiratory failure with hypoxia on mechanical ventilation (intubated due to airway protection)
#DM type II (HbA1C: 8.7) complicated by hypoglycemia - had been non-compliant to insulin in the past
#Found unresponsive due to hypoglycemic encephalopathy/TME
#Rhabdomyolysis
#EULALIA
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
#Chronic anemia (baseline Hb 12-13.5 g/dL)
#Chronic hyperbilirubinemia
#Chronic HFmrEF with diastolic dysfunction
#Valvular heart disease
#CAD s/p multiple stents to LAD, RCA and LCx (2013)
Plan:
- Continue with mechanical ventilation with daily SBT if clinically appropriate - unfortunately unable to do SBT as he remains unresponsive despite being off sedation
- Maintain plateau pressure <30 and titrate FiO2 + PEEP to keep SpO2 >90-94%
- Continue aspiration precautions; keep HOB >30-45�
- prn nebulized bronchodilators - not currently bronchospastic
- Oropharyngeal + deep ETT suctioning with subglottic as needed
- Daily CXR + blood gas
- Daily vent adjustments as needed based on blood gas and SaO2
- Since patient remains unresponsive off sedation, only use prn fentanyl +/- Versed if needed for ventilator asynchrony versus agitation; try to remain fully off agitation to help prognosticate
- Continue D10W with q1hr fingersticks; avoid hypoglycemia
- Goal BG >100 mg/dL
- Avoid giving insulin unless BG>180mg/dL
-Continue trending CK until <500
- Continue IVF with NS 0.9% at 80cc/hr
- Continue ABx with Vanc/Zosyn
- Follow up infectious workup including blood cultures + respiratory cultures
- Blood cultures collected on 04/19/2025 shows coagulase-negative Staphylococcus � disposition anaerobic bottle only - suspected contaminant
- MRSA swab is positive
- Trend WBC and monitor temperature curve
- Pt was having seizure like activity yesterday AM and again this AM- s/p EEG and pt given keppra
- Treat seizures with prn ativan
- Follow-up official EEG impression
- Neuro consulted
- Continue AEDs per neurology (Keppra 750 mg IV q12hr)
- MRI brain MRI brain this morning shows extensive abnormal increased diffusion�weighted signal and decreased ADC signal, with cortical predominance. Neurology reviewed imaging, concern for significant infarction; not compatible with functional
life, hence he will most likely remain in this vegetative state while on ventilator
- Discussion held with the , and she is coming in later this afternoon to speak to me and likely will withdraw care
- Maintain MAP>65
- Renally adjust all meds/Abx
- Trned sCr, trend UOP
- Trend T. bili
- Troponin has peaked at 0.724 on 04/20/2025, hence no need to continue trending at this time
- Believe this is a type II TX, hence no need for echo or cardiology consult at this time
- Recent echo on 04/11/2025 showed LVEF 45-3%, with global hypokinesis, mild moderate LVH, stage II diastolic dysfunction, mild MAC with mild MR, mild�moderate AI with no significant changes overall since prior echo in August 2024
- Replete electrolytes with K>4, Mg>2
- Trend H/H and transfuse if needed to keep Hb>7g/dL; keep plt>20k, unless there is concern for bleeding then keep plt>50k
- Early nutrition - tube feeds
- Stress ulcer ppx: PPI
- DVT ppx: HSQ
Code status: DNR; poor prognosis
As stated above, after brain MRI was performed this morning, I spoke to the , explained the clinical significance where the patient has significant brain damage from hypoglycemic encephalopathy, and will likely remain in vegetative state. She
is en route to the hospital to discuss his case further, and will likely withdraw care.
Critical care statement: A total of 43 minutes of critical care time was provided for this patient today. This includes management of unstable vital signs, evaluation of the patient at bedside, reviewing the patient's pertinent medical records
including radiographs, microbiology, laboratory evaluations, and discussion with primary team, consultants, pharmacy, nutrition, physical therapy, case management, charge nurse, critical care nursing, and respiratory therapy.
Data:
CT chest without contrast 04/19/2025:
1. Patchy consolidation and peribronchovascular thickening throughout the right upper and lower lobes and to a lesser degree the right middle lobe, in keeping with pneumonia and bronchiolitis.
2. Severe coronary artery calcifications.
3. Partially visualized L1 compression fracture.
CT head 04/19/2025: No acute intracranial abnormality noted.
MRI brain 04/21/2025:
Fairly extensive abnormal increased diffusion-weighted signal and decreased ADC signal, with cortical predominance, throughout both cerebral hemispheres, relatively sparing the anterior-inferior frontal lobes as well as the anterior temporal lobes.
There are also symmetric foci of increased diffusion-weighted signal and decreased ADC signal involving the middle cerebellar peduncles.
Given the clinical history, the possibility of hypoglycemic encephalopathy is raised. Hypoxic/ischemic encephalopathy could be considered, slightly atypical without involvement of the lentiform nuclei or thalami. Other metabolic encephalopathies
could also be considered as differential considerations.
Of note, with hypoglycemic encephalopathy, sometimes these regions of abnormal restricted diffusion are reversible.
Transthoracic echocardiogram 04/11/2025:
Normal left ventricular chamber size. Mildly reduced left ventricular systolic
function. Left ventricular ejection fraction is 45-50% by volumetric
assessment. Global hypokinesis. Mild to moderate left ventricular hypertrophy
with septum measuring 1.4 cm. Stage II diastolic dysfunction suggestive of
abnormal relaxation and increased filling pressures.
Mitral valve opens normally. Thickened mitral valve leaflets. Mitral annular
calcification. Mild mitral regurgitation.
Indexed LA volume is mildly abnormal (35-41 mL/m2).
Trileaflet aortic valve. Calcified aortic valve with adequate leaflet
excursion. Mild to moderate aortic regurgitation.
Since echocardiogram August 2024, there is no significant change.
Subjective Dataa
Subjective Data
Date of Service:
Date of Service: April 21, 2025
Chief Complaint: Air Tester Follow Up
Subjective:
Patient was seen and evaluated this morning. Went for brain MRI this morning showing extensive areas with decreased ADC signal with cortical predominance. This is likely hypoglycemic encephalopathy. Patient remains unresponsive and had seizure
activity this morning. He continues to have decerebrate posturing at times especially when he is manipulated/physically examined. Currently intubated on AC/CMV at 16/450/5/35%, with PIP 20 cmH2O, VTe 454 mL and breathing at 17 breaths/min. ETCO2:
31. BP via A-line 147/38, BP via NIBP: 106/50, and heart rate 55. Currently on D10 drip at 40 cc/hr (earlier this morning was on 75 cc/hr).
Review of Systems
General: Unobtainable - Pat Unresp
Objective Data
Data Reviewed
Vital Signs / I&O / Oxygen:
Vital Signs
Temp Pulse Resp BP Pulse Ox
100.3 F 62 20 110/43 100
04/21/25 08:17 04/21/25 04:30 04/21/25 04:30 04/21/25 04:00 04/21/25 08:07
Intake and Output
04/20/25 04/21/25 04/22/25
06:59 06:59 06:59
Intake Total 1710.0 / 1840.0 3745 / 4175 695 / 695
Output Total 220 / 251 952 / 1052 200 / 200
Balance 1490.0 / 1589.0 2793 / 3123 495 / 495
SaO2 [A/C] 100
SaO2 100
Physical Exam
General: Respiratory Distress (negative), Comfortable, Chills (negative), Sweats (negative) and Other (Elderly man, intubated)
HEENT: Normocephalic, Anicteric and Other (ETT in place)
Cardiovascular: S1-S2, Peripheral Edema (negative) and Other (Bradycardia)
Respiratory: Wheeze (negative), Crackles (negative), Rhonchi (negative), Non-Labored Respirations, Stridor (negative) and ET Tube (Mechanical breath sounds heard bilaterally)
GI: Soft, Non Distended, Non Tender and Normal Bowel Sounds
Neurology: Tremors (Occasional twitching in the face/arms), Unresponsive and Other (Intact gag + cough reflex; intact corneal reflexes bilaterally; left pupil 5 mm, right pupil 2 mm, both sluggish. Decerebrate posturing when patient is physically
manipulated/examined)
Skin: Warm, Dry, Cyanosis (negative) and Jaundice (negative)
Labs/Micro/Reports
Lab Data
04/21/25 03:06
04/21/25 03:06
Laboratory Results
04/20/25 04/21/25
22:08 03:06
pH 7.47 H 7.47 H
pCO2 32 L 30 L
pO2 169 H 156 H
HCO3 23.3 21.8
O2 Delivery Level
Microbiology
04/19/25 22:41 Sputum Respiratory Culture - Preliminary
04/19/25 22:41 Sputum Gram Stain - Preliminary
04/19/25 18:01 Blood/Venous Blood Culture - Preliminary
Coagulase neg. staphylococcus
Additional testing on request
04/19/25 18:01 Blood/Venous Gram Stain - Preliminary
04/19/25 17:23 Blood/Venous Blood Culture - Preliminary
No Growth in 24 hours- Final report to follow
04/20/25 10:45 Nose Nasal Screen MRSA (PCR) - Final
Staph aureus MRSA
04/19/25 22:41 Urine Legionella Urinary Antigen - Final
Negative for Legionella pneumophila Serogroup 1 antigen.
A negative result does not rule out the possiblity of
Legionella infection due to other serogroups or species of
Legionella. Clinical correlation is recommended.
04/19/25 22:41 Urine Streptococcus pneumoniae Antigen (M - Final
Negative for Streptococcus pneumoniae antigen.
A negative result does not exclude infection with
Streptococcus pneumoniae. Clinical correlation is
recommended.
04/19/25 18:10 Nasal Swab Influenza Types A & B (VIGNESH) - Final
Negative for Influenza A & B, NAAT
Negative results must be combined with clinical observations
and patient history.
Nucleic Acid Amplification test (NAAT)performed on the
[employer] platform.
[2025-04-21] MEDS: KEPPRA 750 MG IV (08:17)
[2025-04-21] MEDS: PROTONIX IV 40 MG IV (08:17)
[2025-04-21] MEDS: HEPARIN 5000 UNITS SC (08:17)
[2025-04-21] MEDS: LOW STRENGTH ASPIRIN 81 MG TUBE (08:18)
[2025-04-21] MEDS: MIRALAX 17 GRAMS TUBE (08:18)
[2025-04-21] MEDS: PLAVIX 75 MG TUBE (08:18)
[2025-04-21] MEDS: VANCOCIN 200 IV (08:55)
[2025-04-21] MEDS: D10W 1000 IV (08:57)
--- NOTE | 2025-04-21 09:27 | W.PN.NEURO.1 ---
Today's Communication / Plan
-
Consider repeated EEG
Continue supportive care
Would repeat imaging if patient does not have significant improvement
Check MRI of brain as planned
Neuro Assessment/Plan
Assessment
Abrupt onset of change in mental status with profound hypoglycemia and possible sepsis
EEG failed to produce evidence of ongoing seizure activity but showed a discontinuous rhythm, and rhythmic abnormality
Prognosis for meaningful neurological recovery decreases daily with the patient having no significant improvement
Plan
Consider repeated EEG
Continue supportive care
Would repeat imaging if patient does not have significant improvement
Check MRI of brain as planned
Will follow
Subjective/Objective
Subjective Data
Date of Service: April 21, 2025
Patient unable to provide his own medical history
Objective Data
Vital Signs
Temp Pulse Resp BP Pulse Ox
37.9 C 62 20 110/43 100
04/21/25 08:17 04/21/25 04:30 04/21/25 04:30 04/21/25 04:00 04/21/25 08:07
Lab Results
04/21/25 03:06
04/21/25 03:06
PT 14.3 Sec (11.4-14.6) 04/19/25 22:47
INR 1.08 04/19/25 22:47
APTT 29.1 Sec (23.4-35.0) 04/19/25 22:47
Sodium 135 mmol/L (135-145) 04/21/25 03:06
Potassium 3.1 mmol/L (3.5-5.1) L 04/21/25 03:06
BUN 31 mg/dl (9-20) H 04/21/25 03:06
Glucose 127 mg/dl (70-99) H 04/21/25 03:06
Calcium 7.9 mg/dl (8.4-10.2) L 04/21/25 03:06
Phosphorus 2.9 mg/dl (2.5-4.5) 04/19/25 17:23
Patient Allergies
No Known Allergies Allergy (Verified 04/10/25 11:36)
Review of Systems
-
Unable to obtain full review of systems at this time due to: Patient Intubation and Lethargy
History Source: Patient
All other systems: Reviewed and negative
Physical Exam
-
General: No Apparent Distress, Intubated and Appears Stated Age
Eyes: Able to visualize OU, Round OU and [place] Conjunctivae
HEENT: Anicteric and Moist Mucous Membranes
Neck: Full Range of Motion
Respiratory: No Dyspnea
Cardiac: No JVD
GI: Non-distended
Skin: Unremarkable
Extremities: No Clubbing, No Cyanosis and No Edema
Psych: Unable to Assess
Extended Neurological Exam
Mood & Affect: Unable to Assess
Attention Span & Concentration: Unresponsive to Verbal Stimuli; Negative Awake, Alert, Interactive or Unresponsive to Physical Stimuli (Turns head abruptly to the right in a myoclonic fashion for approximately 1-1/2 seconds)
Memory: Unable to Assess
Speech: Unable to Assess
Cranial Nerve II: Left Eye: Pupillary Reactivity Unremarkable, Pupillary Size Unremarkable and Unable to Assess Visual Francisco
Cranial Nerve II: Right Eye: Pupillary Reactivity Unremarkable, Pupillary Size Unremarkable and Unable to Assess Visual Francisco
Cranial Nerves III, IV, : Extraocular Movement: Absent Doll's Eyes and Unable to Assess (Ptosis)
Cranial Nerve V: Facial Sensation: Unable to Assess
Cranial Nerve VII: Facial Symmetry: Normal Facial Symmetry
Cranial Nerves IX, X: Palate Movement: Unable to Assess
Cranial Nerve XI: Shoulder Shrug: Unable to Assess
Cranial Nerve XII: Tongue Protusion: Unable to Assess
Muscle Strength, Overall: Spontaneously Moves (All extremities especially after pain)
Muscle Bulk & Tone: Bulk Unremarkable and Tone Unremarkable
Pronator Drift: Unable to Assess
Cold Sensation: Unable to Assess
Vibration Sensation: Unable to Assess
Touch Sensation: Negative Withdrawal to Pain
Coordination: Unable to Assess
Babinski Sign: Absent Bilaterally
Gait & Station: Unable to Assess
[2025-04-21 09:56] LABS: Glucose - Point of Care 173 mg/dl (70-99)
[2025-04-21] MEDS: ATIVAN 1 MG IV (10:04)
[2025-04-21] MEDS: NSS (PRESERVATIVE FREE) IV (11:51)
[2025-04-21 11:58] LABS: Glucose - Point of Care 180 mg/dl (70-99)
--- NOTE | 2025-04-21 13:27 | CM ---
Patient for terminal extubation. and 2 sons are en route to hospital.
--- NOTE | 2025-04-21 13:42 | PTCARENOTE ---
Pt. transported down to MRI and back to rm [id number] w/out issue. Complete hygiene provided and pt. repositioned per protocol. Results reviewed by Neuro, Dr. Daniels, and Sap Crm Developer, Dr. Hernadez. Further orders received for neuro checks and NIH.
Unable to complete NIH; neuro aware. Dr. Hernadez relayed MRI results to pt.'s . Awaiting family to bedside to discuss goals of care.
[2025-04-21 14:06] LABS: Glucose - Point of Care 151 mg/dl (70-99)
[2025-04-21] MEDS: D10W IV ×2 (14:11→15:38)
--- NOTE | 2025-04-21 16:39 | W.PN.UPDATE ---
Addendum entered and electronically signed by David Hernadez MD 04/21/25 17:46:
Given that patient is being transitioned to comfort care, our service will now sign off. Please call back with any questions or concerns.
Of note, when patient was terminally extubated, he had already been DNR/DNI - confirmed code status with the family prior to extubation.
Original Note:
Update Note
Progress Note Update
Discussion held with , in addition to children Evangelista & Cristofer, and Evangelista' , Génesis. They understand that the pt has extensive TUG HAND damage, and that his chances are extremely for a meaningful recovery. They said that the pt has said before
that he 'wanted to ,' and they said that he would not want to remain on a breathing machine, or have artificial nutrition, etc. They agreed for withdrawal of care. They are going to say their goodbyes and then leave the hospital. Emotional
support provided - art sales consultant services offered - family declined. All questions were answered. While I was speaking with the family, Hospitalist, Dr. Stephens, came to bedside, and he was updated on the plan of care. Bedside RN also given an update
as to the plan.
[2025-04-21] MEDS: ZOSYN IV (16:44)
[2025-04-21] MEDS: HEPARIN SC (16:45)
--- NOTE | 2025-04-21 16:56 | W.PN.HOSP.TC ---
Today's Communication/Plan
-
Withdrawal of care is planned
Assessment / Plan
Assessment / Plan
Is a 84-year-old male with past medical history of insulin-dependent diabetes, hypertension, CAD status post tenting with ischemic cardiomyopathy who presents to the emergency department obtunded in the setting of hypoglycemia. Patient was recently
hospitalized for weakness. At that time was found to be noncompliant with medications for several months and was restarted on his medications. Patient was discharged on insulin and he does not have a glucometer at home nor does he check his blood
glucoses. Son reported that he was given 34 units of Lantus last night when he was actually discharged on 8 units subcu. He was found unresponsive this morning by spouse. When EMS arrived he was found to be hypoglycemic to 39. He was febrile in
the emergency department 213 with a right lower lobe infiltrate. suspect that this is iatrogenic hypoglycemia with possible aspiration pneumonia as well. He is normotensive and his oxygen saturation is actually quite maintained on 40% FiO2. UA
is negative. COVID and flu are negative.
Met with family in room with Dr. Hernadez who explained current situation with family with decision having been made to extubate patient
PLAN:
Respiratory failure -likely secondary to above condition in setting of hypoglycemia. Patient remains unresponsive but has some nonspecific movement at this time. He is sedated on propofol and fentanyl after intubation
-Admit to ICU
-Maintain current vent settings 20/450/40/5 with current oxygen saturation of 100%
- Continue sedation for now, wean tolerated
-Tile Setter consult appreciated and reviewed with Dr. Hernadez. He spoke to family ( and children) and due to poor prognosis for meaningful recovery plan is to extubate to allow to pass.
Hypoglycemia -2/2 insulin o/d corrected status post D10. Patient remains normoglycemic on initial repeat
- close monitoring q 2 hours, dextrose supplementation as need.
-
Pneumonia -fever, right lower lobe infiltrate, suspect aspiration overnight
-Blood cultures have been sent
-IV Vanco Zosyn
-MRSA swab +
- neg cov/flu
Med rec
-Continue aspirin, Plavix, levothyroxine
-Hold metformin
NSTEMI - Suspect non-ishemic myocardial injury in setting of infection and obtundation. Chronically elevated troponin
- trend troponin, if rising further start heparin gtt
- asa 300 rectal x 1 now
- continue DAPT
DVT prophylaxis�heparin subcu
CODE STATUS�DNR
Anticipated Discharge: Within 24 hours
Subjective/Interval History
-
Date of Service: April 21, 2025
Pt remains unresponsive
Objective Data
-
Vital Signs:
Vital Signs
Temp Pulse Resp BP Pulse Ox
99.3 F 65 16 106/50 98
04/21/25 15:57 04/21/25 13:45 04/21/25 13:45 04/21/25 12:00 04/21/25 15:49
I&O
04/20/25 04/21/25 04/22/25
06:59 06:59 06:59
Intake Total 1710.0 / 1840.0 3745 / 4175 1545 / 1545
Output Total 220 / 251 952 / 1052 930 / 930
Balance 1490.0 / 1589.0 2793 / 3123 615 / 615
Review of Systems
-
Unable to obtain full review of systems at this time due to: Patient Intubation
History Source: Physician and Coordinated Provider
Constitutional: Reports Fever (Tmax 103.1 04/19 18:59, afebrile since 04/20 03:00)
Neuro: Reports Other (unresponsive)
Physical Exam
-
General: Well Developed, Well Nourished and Intubated
HEENT: Normocephalic, Atraumatic, Moist Mucous Membranes and Other (pupils mid size and slowly responsive to light)
Respiratory: Clear to Auscultation; Negative Wheezes, Rales or Rhonchi
Cardiac: Regular Rhythm and S1/S2
GI: Soft, Nontender and Nondistended
Musculoskeletal: No Clubbing, No Cyanosis and No Edema
[2025-04-21] MEDS: ATIVAN 1 MG SL (17:02)
[2025-04-21] MEDS: ROBINUL 0.2 MG IV (17:16)
[2025-04-21] MEDS: MORPHINE SULFATE 2 MG IV ×3 (17:16→22:02)
[2025-04-21] MEDS: ATIVAN 2 MG IV (17:17)
--- NOTE | 2025-04-21 18:32 | PTCARENOTE ---
Family arrived to bedside and goals of care discussion completed by Dr. Hernadez; plan for full comfort measures and further orders received. DNR bracelet applied per orders. Admin IV Morphine and SL Ativan- see NOV. Seizure activity noted; admin
prn IV Ativan- see NOV; resolved s.p preventive medicine specialist. Family stated to MD they do not want to be present for terminal extubation and left bedside unsure of if they will be back. Pt. terminally extubated @ 1730 by RT. CPOT-0. R rad a-line removed;
pressure held until bleeding ceased and clean dressing applied. Safe environment maintained.
[2025-04-22] MEDS: MORPHINE SULFATE 2 MG IV ×6 (00:17→16:27)
[2025-04-22] MEDS: MORPHINE 100 IV (03:53)
[2025-04-22 06:00] VITALS: BMI 24.5
[2025-04-22 07:20] VITALS: BP 134/46
--- NOTE | 2025-04-22 09:14 | W.PN.HOSP.TC ---
Today's Communication/Plan
-
continue comfort care for now, potential transition to Hospice
Assessment / Plan
Assessment / Plan
Is a 84-year-old male with past medical history of insulin-dependent diabetes, hypertension, CAD status post tenting with ischemic cardiomyopathy who presents to the emergency department obtunded in the setting of hypoglycemia. Patient was recently
hospitalized for weakness. At that time was found to be noncompliant with medications for several months and was restarted on his medications. Patient was discharged on insulin and he does not have a glucometer at home nor does he check his blood
glucoses. Son reported that he was given 34 units of Lantus last night when he was actually discharged on 8 units subcu. He was found unresponsive this morning by spouse. When EMS arrived he was found to be hypoglycemic to 39. He was febrile in
the emergency department 213 with a right lower lobe infiltrate. suspect that this is iatrogenic hypoglycemia with possible aspiration pneumonia as well. He is normotensive and his oxygen saturation is actually quite maintained on 40% FiO2. UA
is negative. COVID and flu are negative.
Met with family in room with Dr. Hernadez who explained current situation with family with decision having been made to extubate patient 04/21. Pt now transferred and is on Comfort Care. Potential transition to full Hospice pending
PLAN:
Respiratory failure -likely secondary to above condition in setting of hypoglycemia. Patient remains unresponsive but has some nonspecific movement at this time. He is extubated and appears comfortable on a Morphine drip
-Branch Account Executive consult appreciated and reviewed with Dr. Hernadez. He spoke to family ( and children) and due to poor prognosis for meaningful recovery plan and pt has been extubated to allow to pass.
-
Pneumonia -fever, right lower lobe infiltrate, suspect aspiration overnight
Antibiotics have been stopped
-MRSA swab +
- neg cov/flu
Med rec
chronic meds have been stopped
NSTEMI - Suspect non-ishemic myocardial injury in setting of infection and obtundation. Chronically elevated troponin
Discussed with CM, transition to Hospice, though potential imminent
DVT prophylaxis�heparin has been discontinued
CODE STATUS�DNR
Anticipated Discharge: 24 - 48 hours
Subjective/Interval History
-
Date of Service: April 22, 2025
Remains unresponsive
Objective Data
-
Vital Signs:
Vital Signs
Temp Pulse Resp BP Pulse Ox
97.9 F 57 17 134/46 98
04/22/25 07:20 04/22/25 07:20 04/22/25 07:20 04/22/25 07:20 04/22/25 07:20
I&O
04/21/25 04/22/25 04/23/25
06:59 06:59 06:59
Intake Total 3745 / 4175 1855 / 1855
Output Total 952 / 1052 1585 / 1585
Balance 2793 / 3123 270 / 270
Review of Systems
-
Unable to obtain full review of systems at this time due to: Patient Intubation (has been extubated) and Other (unresponsive)
History Source: Coordinated Provider
Constitutional: Denies Fever
Respiratory: Reports No Symptoms
Physical Exam
-
General: Well Developed, Well Nourished, No Apparent Distress, Appears Chronically Ill and Other (unresponsive); Negative Intubated or Conversant
HEENT: Normocephalic and Atraumatic
Respiratory: Clear to Auscultation; Negative Wheezes, Rales or Rhonchi
Cardiac: Regular Rhythm and S1/S2
GI: Soft, Nontender and Nondistended
Musculoskeletal: No Clubbing, No Cyanosis and No Edema
--- NOTE | 2025-04-22 09:21 | W.PN.NEURO.1 ---
Today's Communication / Plan
-
Agree with Hospice/Comfort Care approach
Neuro Assessment/Plan
Assessment
Abrupt onset of change in mental status with profound hypoglycemia and possible sepsis
EEG failed to produce evidence of ongoing seizure activity but showed a discontinuous rhythm, and rhythmic abnormality
Prognosis for meaningful neurological recovery profoundly poor based on lack of improvement cliinically, myoclonus, and MRI of brain abnormalities
Plan
Agree with Hospice/Comfort Care approach
Will follow as needed
Subjective/Objective
Subjective Data
Date of Service: April 22, 2025
Objective Data
Vital Signs
Temp Pulse Resp BP Pulse Ox
36.6 C 57 17 134/46 98
04/22/25 07:20 04/22/25 07:20 04/22/25 07:20 04/22/25 07:20 04/22/25 07:20
Lab Results
04/21/25 03:06
04/21/25 03:06
PT 14.3 Sec (11.4-14.6) 04/19/25 22:47
INR 1.08 04/19/25 22:47
APTT 29.1 Sec (23.4-35.0) 04/19/25 22:47
Sodium 135 mmol/L (135-145) 04/21/25 03:06
Potassium 3.1 mmol/L (3.5-5.1) L 04/21/25 03:06
BUN 31 mg/dl (9-20) H 04/21/25 03:06
Glucose 127 mg/dl (70-99) H 04/21/25 03:06
Calcium 7.9 mg/dl (8.4-10.2) L 04/21/25 03:06
Phosphorus 2.9 mg/dl (2.5-4.5) 04/19/25 17:23
Patient Allergies
No Known Allergies Allergy (Verified 04/10/25 11:36)
Data Reviewed
-
MRI Head: Report Reviewed and Image Reviewed
--- NOTE | 2025-04-22 09:31 | CM ---
Case Management Consult completed. Hospice Referral sent to [facility]; tub tender software validation engineer contacted via [employer] text; referral sent via [employer]
--- NOTE | 2025-04-22 10:39 | HOSPNOTE ---
Hospice referral received and patient is actively dying and will remain on comfort measures. Patient is comfortable at this time and spoke with Attending who is in agreement for patient to remain on comfort.
[2025-04-22] MEDS: ROBINUL 0.2 MG IV (15:29)
[2025-04-22] MEDS: MORPHINE SULFATE 4 MG IV (17:43)
--- NOTE | 2025-04-22 18:13 | PTCARENOTE ---
This RN notified of pt's increasing discomfort, morphine gtt verbally increased to step 3 (4mg/hr). See worklist documentation.
[2025-04-22 19:15] VITALS: BP 143/70
[2025-04-23] MEDS: ROBINUL 0.2 MG IV ×2 (01:57→07:42)
[2025-04-23] MEDS: MORPHINE SULFATE 4 MG IV ×3 (01:57→07:42)
[2025-04-23 07:39] VITALS: BP 100/59
[2025-04-23] MEDS: MORPHINE 100 IV (07:47)
[2025-04-23] MEDS: ATIVAN 2 MG IV (08:00)
[2025-04-23] MEDS: NSS (PRESERVATIVE FREE) 0.5 ML IV (08:01)
--- NOTE | 2025-04-23 08:51 | W.PN.HOSP.TC ---
Today's Communication/Plan
-
Tylenol prn
continue Morphine
Assessment / Plan
Assessment / Plan
Is a 84-year-old male with past medical history of insulin-dependent diabetes, hypertension, CAD status post tenting with ischemic cardiomyopathy who presents to the emergency department obtunded in the setting of hypoglycemia. Patient was recently
hospitalized for weakness. At that time was found to be noncompliant with medications for several months and was restarted on his medications. Patient was discharged on insulin and he does not have a glucometer at home nor does he check his blood
glucoses. Son reported that he was given 34 units of Lantus last night when he was actually discharged on 8 units subcu. He was found unresponsive this morning by spouse. When EMS arrived he was found to be hypoglycemic to 39. He was febrile in
the emergency department with a right lower lobe infiltrate. suspect that this is iatrogenic hypoglycemia with possible aspiration pneumonia as well. He is normotensive and his oxygen saturation is actually quite maintained on 40% FiO2. UA is
negative. COVID and flu are negative.
Met with family in room with Dr. Hernadez who explained current situation with family with decision having been made to extubate patient 04/21. Pt now transferred and is on Comfort Care. Potential transition to full Hospice is to be considered if
does not pass in next 48 hrs
PLAN:
Respiratory failure -likely secondary to above condition in setting of hypoglycemia. Patient remains unresponsive but has some nonspecific movement at this time. He is extubated and appears comfortable on a Morphine drip. Was
uncomfortable/agitated 04/22 and Morphine drip was uptitrated and now seems much more comfortable
-World Language Teacher consult appreciated and reviewed with Dr. Hernadez. He spoke to family ( and children) and due to poor prognosis for meaningful recovery plan and pt has been extubated to allow to pass.
-
Pneumonia -fever, right lower lobe infiltrate,
low grade temp, will add Tylenol
Antibiotics have been stopped
-MRSA swab +
- neg cov/flu
Med rec
chronic meds have been stopped
NSTEMI - Suspect non-ishemic myocardial injury in setting of infection and obtundation. Chronically elevated troponin
Discussed with CM,consider transition to Hospice, though potential imminent and thus will continue on Comfort Care
DVT prophylaxis�heparin has been discontinued
CODE STATUS�DNR
Anticipated Discharge: 24 - 48 hours
Subjective/Interval History
-
Date of Service: April 23, 2025
No obvious distress
Objective Data
-
Vital Signs:
Vital Signs
Temp Pulse Resp BP Pulse Ox
99.9 F 100 29 100/59 85
04/23/25 07:39 04/23/25 07:39 04/23/25 07:39 04/23/25 07:39 04/23/25 07:39
I&O
04/22/25 04/23/25 04/24/25
06:59 06:59 06:59
Intake Total 1855 / 1855 0 / 0
Output Total 1585 / 1585 200 / 200
Balance 270 / 270 -200 / -200
Review of Systems
-
Unable to obtain full review of systems at this time due to: Patient Intubation (has been extubated) and Other (unresponsive)
History Source: Coordinated Provider
Constitutional: Reports Fever (Tmax 100.4)
Respiratory: Reports No Symptoms
Physical Exam
-
General: Well Developed, Well Nourished, No Apparent Distress, Appears Chronically Ill and Other (unresponsive); Negative Intubated or Conversant
HEENT: Normocephalic and Atraumatic
Respiratory: Clear to Auscultation and Non Labored Respirations; Negative Wheezes, Rales, Rhonchi or Crackles
Cardiac: Regular Rhythm and S1/S2
GI: Soft, Nontender and Nondistended
Musculoskeletal: No Clubbing, No Cyanosis and No Edema
[2025-04-23] MEDS: TYLENOL/FEVERALL 325 MG RECTAL (09:25)
--- NOTE | 2025-04-23 17:14 | W.PN.DEATH ---
Pronouncement of
-
Called to see patient to pronounce.
No spontaneous heart tones or respirations noted.
Patient not responsive to verbal stimuli.
Patient is pronounced .
Time of : 16:52
Date of : 04/23/25
Cause of : Hypoglycemic Encephalopathy
Family Notified: Yes
== END 2025-04-23 18:52 | disposition expired | DRG 637 ==
LOC: 2 NORTH 21:14
PROVIDERS: Nurse Practitioner Primary Care; ADMITTING PHYSICIAN Internal Medicine; ATTENDING PHYSICIAN Internal Medicine; CONSULT PHYSICIAN Internal Medicine Critical Care Medicine; CONSULT PHYSICIAN Psychiatry & Neurology Neurology; EMERGENCY PHYSICIAN Emergency Medicine
PROC: 5A1945Z Respiratory Ventilation, 24-96 Consecutive Hours (ICD-10-PCS; 2025-04-19)
PROC: 0BH17EZ Insertion of Endotracheal Airway into Trachea, Via Natural or Artificial Opening (ICD-10-PCS; 2025-04-19)
DX: E11.649 Type 2 diabetes mellitus with hypoglycemia without coma (principal); I21.4 Non-ST elevation (NSTEMI) myocardial infarction; J96.01 Acute respiratory failure with hypoxia; J69.0 Pneumonitis due to inhalation of food and vomit; I45.2 Bifascicular block; I13.0 Hypertensive heart and chronic kidney disease with heart failure and stage 1 through stage 4 chronic kidney disease, or unspecified chronic kidney disease; I50.22 Chronic systolic (congestive) heart failure; R17 Unspecified jaundice; N18.30 Chronic kidney disease, stage 3 unspecified; E11.22 Type 2 diabetes mellitus with diabetic chronic kidney disease; F03.90 Unspecified dementia, unspecified severity, without behavioral disturbance, psychotic disturbance, mood disturbance, and anxiety; I25.5 Ischemic cardiomyopathy; I25.10 Atherosclerotic heart disease of native coronary artery without angina pectoris; Z95.5 Presence of coronary angioplasty implant and graft; N40.0 Benign prostatic hyperplasia without lower urinary tract symptoms; Z85.46 Personal history of malignant neoplasm of prostate; Z79.890 Hormone replacement therapy; Z79.82 Long term (current) use of aspirin; Z79.4 Long term (current) use of insulin; Z79.02 Long term (current) use of antithrombotics/antiplatelets; Z66 Do not resuscitate; Z79.84 Long term (current) use of oral hypoglycemic drugs; D63.1 Anemia in chronic kidney disease; E03.9 Hypothyroidism, unspecified; E78.00 Pure hypercholesterolemia, unspecified; G25.3 Myoclonus; Z79.899 Other long term (current) drug therapy; Z87.440 Personal history of urinary (tract) infections; Z90.79 Acquired absence of other genital organ(s); Z98.1 Arthrodesis status; Z11.52 Encounter for screening for COVID-19
CPT/HCPCS: 31500; 51702; 70450; 70551; 71045; 71250; 74176; 80048; 80053; 80202; 81003; 81015; 82330; 82550; 82553; 82805; 82962; 83605; 83735; 84100; 84132; 84302; 84478; 84484; 85025; 85027; 85610; 85730; 87040; 87070; 87154; 87205; 87449; 87502; 87641; 87811; 87899; 93005; 94002; 94003; 95816; 96365; 96366; 96367; 96375; 99291